=== PATIENT | female | born 1985 | race Caucasian/White ===

== ENCOUNTER 2025-01-11 20:45 | Emergency (ER) | payer OTHER, SELFPAY ==
--- NOTE | ~2025-01-11 | XR_ITS ---
CLINICAL HISTORY: proximal fibular tenderness 2 view left tibia-fibula Comparison: CR - XR ANKLE LT MIN 3V - 01/11/25 21:34 EDT Findings Redemonstrated distal fibular fracture with distal soft tissue edema. No proximal tibial/fibular fractures. No significant arthritic change. No radiopaque foreign body. IMPRESSION: No proximal tibial/fibular fractures. This document has been electronically signed by: Elian Preciado MD on 01/12/2025 01:41:25
--- NOTE | ~2025-01-11 | XR_ITS ---
CLINICAL HISTORY: s p fall - twisted ankle 3 view left ankle Comparison: None Findings: Comminuted distal fibular meta diaphyseal fracture with medial angulation butterfly fragments displaced laterally. Possible tiny additional displaced linear avulsion fractures inferior to the lateral malleolus. There is widening of the medial clear space concerning for underlying ligamentous injury. Diffuse soft tissue ankle edema, worse medially. No significant loss of joint space, osteophytes, or erosions. No radiopaque foreign body. IMPRESSION: Distal fibular fracture as described. This document has been electronically signed by: Elian Preciado MD on 01/11/2025 22:03:43
--- NOTE | ~2025-01-11 | XR_ITS ---
CLINICAL HISTORY: trauma 4 views sacrum and coccyx Comparison: None Findings No acute fractures. No significant degenerative change. No erosions. IMPRESSION: No acute findings This document has been electronically signed by: Elian Preciado MD on 01/12/2025 01:40:50
[2025-01-11 20:50] VITALS: BP 140/89; BP 160/100; PULSE 86; PULSE 99; RESP 16; TEMP 36.1; O2SAT 100; O2SAT 97; BMI 29.2
--- OUTSIDE RECORDS SUMMARY | 2025-01-11 21:11 | XMS_ITS | Clinical Summary ---
Author Organization [employer] Address [address] [place] [address] [address] [place] [address] Care Team Providers Care Master Baker Name Role Phone Unavailable Primary Care Provider Unavailabl e Social History Tobacco Use Types Packs/Day Years Used Date Smoking Tobacco: Never Assessed Comments Unknown Sex and Gender Information Value Date Recorded Sex Assigned at Female 08/05/2022 10:19 AM EDT Legal Sex Female 10:19 AM EDT Gender Identity Choose not to disclose 10:19 AM EDT Sexual Orientation Choose not to disclose 2021 10:19 AM EDT Plan of Treatment Health Maintenance Due Date Last Done Comments Depression Screening 1987 Alcohol/Substance Use Screening 1999 Tobacco Screening 1999 Family Planning (PISQ) 2002 DTaP/Tdap/Td Vaccines (1 - Tdap) 2006 Hepatitis B Vaccines (1 of 3 - 19+ 3-dose series) 2006 Pap Smear 2008 Cervical Cancer Screening 10/16/2021 HPV/Cotest 10/16/2021 10/16/2016 COVID-19 Vaccine (1 - 2023-2 5 season) 2024 Influenza Vaccine (#1) 2024 Zoster Vaccines (1 of 2) 2037 RSV Patients and Pa tients Aged 60 years or older (1 - 1-dose 75+ series) 2062 HIB Vaccines Aged Out No longer eligi ble based on patient's age to complete this topic HPV Vaccines Aged Out No longer eligi ble based on patient's age to complete this topic Hepatitis A Vaccines Aged Out No long er eligible based on patient's age to complete this topic IPV Vaccines Aged Out No longer eligi ble based on patient's age to complete this topic Meningococcal Vaccine Aged Out No angela cayetano eligible based on patient's age to complete this topic Pneumococcal Vaccine: Pediat rics (0 to 5 Years) and At-Risk Patients (6 to 49) Years) Aged Out No longer elig ible based on patient's age to complete this topic RSV under 20 months Aged Out No longe r eligible based on patient's age to complete this topic Rotavirus Vaccines Aged Out No longer eligible based on patient's age to complete this topic Procedures Procedure Name Priority Date/Time Associated Diagnosis Comments JdHILARIO HISTORICAL HPV MRNA E6/E7 Routine 10/16/2016 10:39 AM EST from Last 3 Months or Most Recently Relevant to Health Maintenance Results * HPV mRNA E6/E7 (10/16/2016 10:39 AM EST) HPV mRNA E6/E7 Not Detected NOT DETECTED [facility] Comment: This test was performed using the APTIMA(R) HPV Assay ([employer] This assay detects E6/E7 viral messenger RNA (mRNA) from 14 high-risk HPV types (16,18,31,33,35,39,45,51, 52,56,58,59,66,68). For additional information please refer to: http://education.Amp[employer] Mobile/faq/SUZ832r0 (This link is being provided for informational/ educational purposes only.) Test Performed by [facility], [address] [place] [id number] Levi Chairez M.D., Ph.D., Director of Laboratories , [facility] [id number] Please note: ??Effective 06/17/2016, HPV testing will be performed using [employer]'s APTIMA test which targets mRNA. Detecting mRNA instead of DNA, as in older methods, offers significant improvements in specificity. 10/16/2016 10:3 9 AM EST us Historical Provider HISTORICAL/NON ORDERABLE LABS Final Result [facility] [place] [address], [place] from Last 3 Months or Most Recently Relevant to Health Maintenance
--- OUTSIDE RECORDS SUMMARY | 2025-01-11 21:11 | XMS_ITS | Clinical Summary ---
Author Organization [facility] [address] [facility] Address [address] [facility] [place] [address] Phone Care Team Providers Care Senior Lead Developer Name Role Phone Martha Vidal MD Primary Care Pr ovider Allergies No known active allergies Medications IBUPROFEN ORAL Take by mouth. Active pantoprazole (PROTONIX) 20 mg EC tablet Take 1 Tablet by mouth daily. 4 Active escitalopram (LEXAPRO) 10 mg tablet Take 1 tablet (10 mg total) by mouth 1 (one) time each day. 90 tablet 1 5 Active hydrOXYzine HCL (ATARAX) 25 mg tablet Take 1 tablet (25 mg total) by mouth at bedtime as needed for anxiety. for anxiety 90 tablet 1 5 Active cyclobenzaprine (FLEXERIL) 5 mg tablet Take 1 tablet (5 mg total) by mouth at bedtime. at bedtime. 90 tablet 5 Active hydrOXYzine HCL (ATARAX) 25 mg tablet Take 1 tablet (25 mg total) by mouth at bedtime as needed for anxiety. for anxiety 90 tablet 1 5 01/02/20 25 Discontinu ed(Reorder ) cyclobenzaprine (FLEXERIL) 5 mg tablet Take 1 tablet (5 mg total) by mouth at bedtime. at bedtime. 90 tablet 5 01/05/20 25 Discontinu ed(Reorder ) Hospital, Clinic, or Other Facility Administered Medication Ordered Dose Route Frequency Start Date End Date Status cyanocobalamin (VITAMIN B-12) injection 1,000 mcgIndications:Anemia due to vitamin B12 deficiency, unspecified B12 deficiency type 1000 mcg IM Every 30 days 08/27/2024 02/23/2025 Ac tive Active Problems Problem Noted Date Diagnosed Date B12 deficiency anemia 06/17/2024 Hyperlipidemia 06/17/2024 Vitamin B12 deficiency disease 06/17/2024 DJD (degenerative joint disease), thoracolumbar 06/16/2024 Lumbar pain 06/16/2024 Anxiety and depression 02/11/2023 Primary hypertension 02/11/2023 Dermatitis 11/13/2022 Gastroesophageal reflux disease without esophagi tis 11/13/2022 Insomnia 11/13/2022 Chronic bilateral thoracic back pain 09/03/2022 Overview (08/11/2024): Last Assessment & Plan: Referral to plastic surgery placed. Obesity (BMI 30.0-34.9) 07/07/2022 Encounters Date Type Department Care Team Description 11/24/2024 4:00 PM EST Clinical Support Adult Medicine [address] [phone] Vitamin B12 deficiency disease (Primary Dx) 11/10/2024 4:15 PM EST Clinical Support Adult Medicine [address] [address] Vitamin B12 deficiency disease (Primary Dx) from Last 3 Months Immunizations Name Administration Dates Next Due Influenza trivalent, 0.5mL, preservative free (Fluarix; FluLaval; Fluzone) ages 6mo and older (Afluria) 3 years and older 06/16/2024 Tdap Tetanus diptheria acell ular pertussis (Boostrix; Adacel) 7yo and older 11/13/2022,02/01/2009 Surgical History Surgery Date Site/Laterality Comments OTHER SURGICAL HISTORY PROCEDURE: DENIES PREVIOUS SURGERY Family History Medical History Relation Name Comments Pancreatic cancer Maternal Grandmother Diabetes Mother Breast cancer Other Mat gr granmother Other: skin cancer Uncle maternal Colon cancer Neg Hx Relation Name Status Comments Father unknown Maternal Grandmother Mother Other Mat gr granmother Uncle maternal Alive Social History Tobacco Use Types Packs/Day Years Used Date Smoking Tobacco: Never Smokeless Tobacco: Never Alcohol Use Standard Drinks/Week Comments Yes 0 (1 standard drink = 0.6 oz pur e alcohol) Comments Unknown Sex and Gender Information Value Date Recorded Sex Assigned at Not on file Legal Sex Female 11:56 PM EST Gender Identity Not on file Sexual Orientation Not on file Obstetrics History Last Filed Vital Signs Vital Sign Reading Time Taken Comments Blood Pressure 129/82 06/16/2024 2:25 PM EDT Pulse 79 06/16/2024 2:25 PM EDT Temperature - - Respiratory Rate - - Oxygen Saturation - - Inhaled Oxygen Concentration - - Weight 80.3 kg (177 lb) 06/16/2024 2:25 PM EDT Height 157.5 cm (5' 2 ) 06/16/2024 2:25 PM EDT Body Mass Index 32.37 06/16/2024 2:25 PM EDT Plan of Treatment Upcoming Encounters Date Type Department Care Team (Late st Contact Info) Description 02/10/2025 12:30 PM EDT Office Visit Adult Medicine [address] [phone] Melissa Bains PA [address] [place] [address] Health Maintenance Due Date Last Done Comments Hepatitis B Vaccines (1 of 3 - 19+ 3-dose series) 2006 Depression Screening 09/15/2022 Hepatitis C Screening 09/15/2022 Social Influencers of Health Screening 09/15/2022 COVID-19 Vaccine ( - 2023-2 5 season) 2024 01/29/2021, 12/31/2020 Hypertension/CHF/CAD Annual BMP Blood Test 06/16/2025 06/16/2024, 06/16/2024 Cervical Cancer Screening: HPV 09/02/2027 09/02/2022 Cholesterol Screening (Lipid Panel) 06/16/2029 06/16/2024, 06/16/2024 DTaP,Tdap,and Td Vaccines (3 - Td or Tdap) 11/13/2032 11/13/2022, 02/01/2009 HIV Screening Completed 08/23/2004 Influenza Vaccine Completed 06/16/2024 HIB Vaccines Aged Out No longer eligi [...] on patient's age to complete this topic MMR Vaccines Aged Out No longer eligi ble based on patient's age to complete this topic Meningococcal ACWY Vaccine Aged Out N o longer eligible based on patient's age to complete this topic Meningococcal B Vaccine Aged Out No l onger eligible based on patient's age to complete this topic Pneumococcal Vaccine: Pediatrics (0 to 5 Years) and At-Risk Patients (6 to 64 Years) Aged Out No longer eligible b ased on patient's age to complete this topic RSV Immunization Patients Under 20 months Aged Out No longer eligible b ased on patient's age to complete this topic Varicella Vaccines Aged Out No longer eligible based on patient's age to complete this topic Procedures Procedure Name Priority Date/Time Associated Diagnosis Comments ANNUAL BMP BLOOD TEST Routine 06/16/2024 LIPID PANEL Routine 06/16/2024 HPV Routine 09/02/2022 HIV SCREENING Routine 08/23/2004 from Last 3 Months or Most Recently Relevant to Health Maintenance Results * Annual BMP Blood Test (06/16/2024) Pathologist [facility] Annual BMP Blood Test Abstracted us Historical Provider MD HEALTH MAINTENANCE Final Result * (ABNORMAL) Lipid panel (06/16/2024) Pathologist [facility] LDL/HDL Ratio 5(A) 0 - 4 Triglycerides 312(A) 0 - 150 mg/dL Cholesterol 206(A) 0 - 200 mg/dL HDL 45 >=40 mg/dL LDL Cholesterol 99 0 - 100 mg/dL Blood Venous blood specimen / Unknown Historical Provider LAB BLOOD ORDERABLES Mandie l Result * Cervical Cancer Screening: HPV (09/02/2022) Pathologist [facility] Cervical Cancer Screening: HPV Negative, Abstracted Historical Provider HEALTH MAINTENANCE Final Result * HIV Screening (08/23/2004) [facility] HIV Screening Abstracted [facility] Provider HEALTH MAINTENANCE Final Result from Last 3 Months or Most Recently Relevant to Health Maintenance Care Teams Senior Lead Developer Relationship Specialty Start Date End Date Martha Vidal MD [address] [place], [place] PCP - General Internal Medicine 05/02/22
--- OUTSIDE RECORDS SUMMARY | 2025-01-11 21:11 | XMS_ITS | Encounter Summary ---
Author Organization [employer] [facility] Address [address] [place] [address] [address] [place] [address] Care Team Providers Care Coat Presser Name Role Phone Unavailable Primary Care Provider Unavailabl e Encounter Details Date Type Department Care Team (Latest Contact Info) Description 02/05/2022 Abstract [facility] CONVERSIONS Dental, Provider, DDS Social History Tobacco Use Types Packs/Day Years Used Date Smoking Tobacco: Never Assessed Comments Unknown Sex and Gender Information Value Date Recorded Sex Assigned at Female 08/05/2022 10:19 AM EDT Legal Sex Female 10:19 AM EDT Gender Identity Choose not to disclose 10:19 AM EDT Sexual Orientation Choose not to disclose 2021 10:19 AM EDT documented as of this encounter Plan of Treatment Not on file documented as of this encounter Visit Diagnoses Not on filedocumented in this encounter
--- OUTSIDE RECORDS SUMMARY | 2025-01-11 21:11 | XMS_ITS | Encounter Summary ---
Author Organization [facility] Address [address] [place] [address] Care Team Providers Care Supervisor Nurse Name Role Phone Martha Vidal MD Primary Care Pr ovider Encounter Details Date Type Department Care Team (Late st Contact Info) Description 07/08/2024 4:30 PM EDT Hospital Encounter TH HISTORIC ENCOUNTERS [facility] CONVERSION ONLY Martha Vidal MD [address] [place] [id number] Social History Tobacco Use Types Packs/Day Years Used Date Smoking Tobacco: Never Smokeless Tobacco: Never Alcohol Use Standard Drinks/Week Comments Yes 0 (1 standard drink = 0.6 oz pur e alcohol) Comments Unknown Sex and Gender Information Value Date Recorded Sex Assigned at Not on file Legal Sex Female 11:56 PM EST Gender Identity Not on file Sexual Orientation Not on file documented as of this encounter Plan of Treatment Upcoming Encounters Date Type Department Care Team (Late st Contact Info) Description 02/10/2025 12:30 PM EDT Office Visit Adult Medicine [address] [phone] Melissa Bains PA [address] [place] [address] documented as of this encounter Visit Diagnoses Not on filedocumented in this encounter Care Teams Supervisor Nurse Relationship Specialty Start Date End Date Martha Vidal MD [address] [place] [address] [place], [place] PCP - General Internal Medicine 05/02/22 documented as of this encounter
--- NOTE | 2025-01-11 21:35 | PC.NURSE ---
portable left ankle performed
--- NOTE | 2025-01-11 23:13 | ED.GENADULT ---
HPI - General Adult General Chief complaint: Extremity Injury, Lower Stated complaint: Ankle injury, ?dislocation Time Seen by Provider: 01/11/25 23:13 History of Present Illness ED Provider: Vilma GONSALES narrative: The patient is a 39-year-old woman who comes to the emergency room by ambulance after slipping and falling on the stairs in her apartment building. She says that she slipped and fell and twisted her left ankle. She also landed on her buttocks and has pain in the region of her tailbone she says. She did not hit her head or sustain any other injuries. Related Data Previous Rx's ?Medication ?Instructions ?Recorded oxycodone 5 mg tablet 5 mg PO Q6H PRN pain #16 tabs 01/12/25 Allergies Allergy/AdvReac Type Severity Reaction Status Date / Time No Known Allergies Allergy Verified 01/11/25 20:54 Review of Systems Review of Systems: Yes all other systems are reviewed and are negative PMFSH Social History Social History Advance Directives: No Advance Directives Information Provided: No Physical Exam ED Vital Signs: Vital Signs - 24 hr 01/11/25 20:50 01/12/25 00:35 Temperature 97.0 F 98.2 F Pulse Rate 99 80 Respiratory Rate 16 18 Blood Pressure 140/89 H 137/90 H Pulse Oximetry 97 95 Oxygen Delivery Method Room Air Room Air BMI result Body Mass Index 29.2 Const Other: The patient is awake and alert. She looks uncomfortable. She has an obviously swollen left ankle. HENMT Other: No signs of trauma to the head or the face. Eyes Other: Pupils are round equal, conjunctivae are clear, extraocular movements intact. Neck Other: No C-spine tenderness. Moving her neck easily without pain. C-spine is clinically clear. Resp Effort & Inspection: normal respiratory effort Auscultation: clear to auscultation bilaterally Cardio Rate: regular rate Rhythm: regular rhythm Heart sounds: S1 normal heart sound present and S2 normal heart sound present Back/Spine/Pelvis Other: The patient has left-sided sacral tenderness Skin Other: There is swelling to the skin of the left ankle both of the lateral and medial malleoli. The skin is intact. Neuro Other: The patient is awake and alert. She is quite upset. Cranial nerves seem grossly intact. She is able to wiggle the toes of the left foot and she reports that she can feel me touching her left foot and toes. Extrem Other: The patient has significant swelling of both left malleoli. She is tender. There is significant swelling but no other gross deformity. She is also tender at the left proximal fibula. The knee is not swollen. Medications Administered Discontinued Medications Generic Name Dose Route Start Last Admin Trade Name Jessica PRN Reason Stop Dose Admin Oxycodone HCl 5 mg 01/11/25 23:22 01/11/25 23:56 Oxycodone Hcl Immed Release 5 Mg Tablet PO 01/11/25 23:23 5 mg ONCE ONE Administration Procedures Orthopedic Splinting/Casting Injury #1: Side: left Lower Extremity Injury Location: ankle Lower Extremity Immobilizer: posterior splint, stirrup splint and Deny wrap Other Orthopedic Equipment: crutches Additional Comments: A splint was applied with generous cast padding applied 1st and then a posterior slab of Orthoglass and a stirrup slab of Orthoglass applied with the an Deny bandage. Patient tolerated application of the splint well. She remained neurovascularly intact after after application of the splint. Medical Decision Making Medical Decision Making MDM Narrative: The patient's presents after falling on stairs in her apartment building. She injured her left ankle and also her sacral area. She did not hit her head. An x-ray of the left ankle showed a left distal fibular fracture. There is some slight widening of the joint space. The patient seemed to have some tenderness in the region of the proximal fibula and I was concerned about the possibility of a Maisonneuve fracture. Therefore an x-ray of the hold tibia and fibula was obtained but there were no additional fractures. The patient had some sacral tenderness. No fracture seen on a sacral/coccyx fracture. I explained to the patient that she has a left distal fibular fracture that will probably need surgical repair. She was placed in a splint with a short-leg posterior slab and a stirrup slab. The splint was made using perfectly cast padding, Orthoglass, and Deny bandages. The patient tolerated application of the splint well and remained neurovascularly intact. The patient was advised that she will be nonweightbearing until otherwise advised by Orthopedics. She was given crutches. Her boyfriend will be taking her home. A prescription for oxycodone was sent to the pharmacy. She will contact the orthopedic office in the morning. Discharge Plan Discharge Clinical Impression: Closed fracture of left distal fibula Patient Disposition: Home, Self-Care Instructions: Leg Fracture (ED) Additional Instructions: You have a fracture of the left side of your ankle that will probably need surgery. You has been placed in a splint to immobilize the fracture until you follow up with the orthopedic office. You should be ?nonweightbearing? on your left foot. This means you should not put your foot on the ground with any weight. Use the crutches provided to keep weight off your left foot. As much as you are able to please keep the left foot elevated to reduce swelling. Reducing swelling will reduce pain. You may use [id number] acetaminophen, 2 extra-strength acetaminophen per dose up to 3 times per day. Additionally I have sent a prescription for oxycodone tablets to the [facility] on [employer] in [place]. You may use this medication on an as-needed basis for pain. Please call the orthopedic office in the morning for a prompt follow up appointment to discuss this fracture further and possibly arrange surgery. Return to the emergency room if significantly worse. Prescriptions: New oxycodone 5 mg tablet 5 mg PO Q6H PRN (Reason: pain) Qty: 16 0RF Rx Instructions: Partial Fill upon patient request. Referrals: [facility] Orthopedic Surgeons [Provider Group] (left distal fibula fracture) Stand Alone Forms: Work/School Release Print Language: Telugu
[2025-01-11] MEDS: oxyCODONE HCl Immed Release 5 MG TABLET PO (23:56)
[2025-01-12 00:35] VITALS: BP 137/90; PULSE 80; RESP 18; TEMP 36.8; O2SAT 95
[2025-01-12 02:40] VITALS: BP 137/90; PULSE 80; RESP 18; TEMP 36.8; O2SAT 95
== END 2025-01-12 02:40 | disposition home or self-care (01) ==
PROVIDERS: Emergency Provider Emergency Medicine; PCP Student in an Organized Health Care Education/Training Program
DX: S82.832A Other fracture of upper and lower end of left fibula, initial encounter for closed fracture (principal); W10.8XXA Fall (on) (from) other stairs and steps, initial encounter; Y93.89 Activity, other specified; Y92.038 Other place in apartment as the place of occurrence of the external cause; Y99.9 Unspecified external cause status
CPT/HCPCS: 29515; 72220; 73590; 73610; 99283; 99284

== ENCOUNTER → 2025-01-11 21:38 | Outpatient (BNV) | payer SELFPAY | PROVIDERS: PCP Student in an Organized Health Care Education/Training Program; Visit Provider Radiology Diagnostic Radiology | DX: S82.892A Other fracture of left lower leg, initial encounter for closed fracture (principal) | CPT/HCPCS: 73610 ==

== ENCOUNTER → 2025-01-12 00:02 | Outpatient (BNV) | payer SELFPAY | PROVIDERS: Emergency Provider Emergency Medicine; PCP Student in an Organized Health Care Education/Training Program; Visit Provider Radiology Diagnostic Radiology | DX: M53.3 Sacrococcygeal disorders, not elsewhere classified (principal); M25.572 Pain in left ankle and joints of left foot | CPT/HCPCS: 72220; 73590 ==

== ENCOUNTER 2025-01-17 09:30 | Outpatient (AMB) | payer OTHER, SELFPAY ==
--- NOTE | 2025-01-17 09:36 | A.OFFVIS_ITS ---
Vital Signs 01/17/25 09:46 Height 5 ft 4 in Weight 170 lb BMI 29.2 Intake Visit Reasons: FC-LT ankle closed fracture of distal fibula Intake Note: Nathalie is a 39 year old female who presents today for an ER follow up of left ankle fracture, DOI 01/11/25. Patient had a fall down the stairs at home, she presented to [facility] ER that same day where x-rays were taken and placed in a splint. Patient reports her current pain level is a 9-10 out of 10. She feels pressure in her ankle and swelling in her toes. Patient mentions soreness in her coccyx area. feels swelling in her toes. Allergies No Known Allergies Allergy (Verified 01/17/25 09:49) Medication List - Last Reconciled 01/17/25 by Bhavik Castano PA-C escitalopram oxalate 10 mg PO DAILY hydroxyzine HCl 25 mg PO DAILY PNV cmb#95-ferrous fumarate-FA 28 mg iron- 800 mcg () 1 tab PO DAILY HPI HPI FC-LT ankle closed fracture of distal fibula: Details: 39-year-old female presents to the office today for an injury she sustained to her left ankle on 01/11/2025. She states she was going down the stairs when she slipped and fell. She immediately noticed pain and inability to weightbear therefore she was seen in the emergency department where x-rays were obtained. She was found to have a distal fibular fracture with widening of the mortise. She was placed in a splint nonweightbearing and referred to our office for ortho eval. 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 Review of Systems Const All systems reviewed & are unremarkable except as noted in HPI and below Physical Exam Vital Signs: BMI result Body Mass Index 29.2 Const General: cooperative, healthy appearing, comfortable, no acute distress, well developed and alert Orientation/consciousness: patient oriented x3 HEENT Head: Yes normal to inspection, Yes normocephalic and Yes atraumatic Eyes General: appearance normal, both eyes and all related structures Neck Neck: Yes normal visual inspection and Yes no lymphadenopathy Resp Effort & Inspection: normal respiratory effort and able to speak in complete sentences Cardio Rate: regular rate Peripheral pulses: Peripheral pulses 2+ throughout GI Inspection: Yes normal to inspection Palpation (GI): Soft to palpation Skin General skin exam: no rashes or lesions noted Neuro General: patient oriented x3 Extrem Other: Left ankle is normal to inspection. She has diffuse swelling throughout the foot and ankle with a fracture blister along the medial aspect of the ankle. Sensation intact. Psych Appearance: grossly normal Mental Status: mental status grossly normal Office Procedures Casting/Splints 25293-Gzgqg Leg splint application Procedure code (CPT) selection complete Assessment & Plan Assessment & Plan (1) Closed fracture of left distal fibula: Code(s): S82.832A - Other fracture of upper and lower end of left fibula, initial encounter for closed fracture Category: Medical Plan: I discussed the case with Dr Carmona and explained the extent of the injury to the patient and options available which include surgical intervention. I explained the procedure in detail along with the length of recovery and rehab course. I explained the risk, benefits and alternatives. Risk including, but not limited to infection, blood clots, bleeding, non union or malunion and nerve/tissue damage to surrounding areas. I answered all their questions and with their understanding they have consented to move forward with Operative Fixa tion of the left ankle . She will eb booked accordingly. Medications: Discontinued oxycodone Partial Fill upon patient request. Discontinued Reason: Patient Completed Course 5 mg PO Q6H PRN 16 tabs 0RF pain Coding Level of Care Code New Pt Level 4 (07772) Complex EM visit Add On G2211 Diagnoses Closed fracture of left distal fibula S82.832A CPT Codes Splint - CPT: 74079-Xmkrv Leg splint application ([id number])
[2025-01-17 09:46] VITALS: BMI 29.2
--- OUTSIDE RECORDS SUMMARY | 2025-01-17 10:34 | XMS_ITS | Clinical Summary ---
Author Organization [employer] Address [address] [place] [address] 7[address] [place] [address] Care Team Providers Care Drum Stenciler Name Role Phone Unavailable Primary Care Provider Unavailabl e Encounters Date Type Department Care Team Description 01/11/2025 Orders Only [facility] External Provider, [facility] from Last 3 Months Social History Tobacco Use Types Packs/Day Years [...] Procedure Name Priority Date/Time Associated Diagnosis Comments XR TIBIA FIBULA 2 VIEWS LEFT Routine 01/12/2025 1:41 AM EDT XR SACRUM COCCYX 2+ VIEWS Routine 01/12/2025 1:40 AM EDT XR ANKLE 3+ VIEWS LEFT Routine 01/11/2025 10:03 PM EDT [facility] HISTORICAL HPV MRNA E6/E7 Routine 10/16/2016 10:39 AM EST from Last 3 Months or Most Recently Relevant to Health Maintenance Results * XR Tibia Fibula 2 Views Left (01/12/2025 1:41 AM EDT) Anatomical Region Laterality Modality Lower Extremities, Lower Leg Left Rad iographic Imaging 01/12/2025 1:41 AM EDT Narrative 01/12/2025 1:43 AM EDT ? [facility] ?[address] ?[place] [address] ?XRay Report ? Signed ? Patient: Nathalie Correia ?MR#: M ?? [id number] ? : 1985 ?Acct:[id number] ? Age/Sex: 39 / F ?ADM Date: 04/08/25 ? Loc: HO.ED ? Attending Dr: ? Ordering Physician: Augusto Esparza MD ?? Date of Service: 01/12/25 ?? Procedure(s): XR tibia fibula LT 2V ?? Accession Number(s): [id number] ? cc: Augusto Esparza MD; Leandra Carbajal MD ? CLINICAL HISTORY: proximal fibular tenderness ? 2 view left tibia-fibula ? Comparison: CR - XR ANKLE LT MIN 3V - 01/11/25 21:34 EDT ? Findings ?? Redemonstrated distal fibular fracture with distal soft tissue edema. ?? No proximal tibial/fibular fractures. ?? No significant arthritic change. No radiopaque foreign body. ? IMPRESSION: ?? No proximal tibial/fibular fractures. ? This document has been electronically signed by: Elian Preciado MD on ?? 01/12/2025 01:41:25 ? Dictated By: ?Elian Preciado MD ? Signed By: ?<Electronically signed by Elian Preciado MD in OV> ?01/12/25 0142 ? DD/ 0141 ? TD/TT: 01/12/25 0141 ? Client Service Administrator: ? Procedure Note Donmanuel, Image - 01/13/[address] [address] XRay Report Signed Patient: Nathalie CorreianMR#: M [id number] : 1985Acct:[id number] Age/Sex: 39 / FADM Date: 01/11/25 Loc: HO.ED Attending Dr: Ordering Physician: Augusto Esparza MD Date of Service: 01/12/25 Procedure(s): XR tibia fibula LT 2V Accession Number(s): [id number] cc: Augusto Esparza MD; Leandra Carbajal MD CLINICAL HISTORY: proximal fibular tenderness 2 view left tibia-fibula Comparison: CR - XR ANKLE LT MIN 3V - 01/11/25 21:34 EDT Findings Redemonstrated distal fibular fracture with distal soft tissue edema. No proximal tibial/fibular fractures. No significant arthritic change. No radiopaque foreign body. IMPRESSION: No proximal tibial/fibular fractures. This document has been electronically signed by: Elian Preciado MD on 01/12/2025 01:41:25 Dictated By: Elian Preciado MD Signed By: <Electronically signed by Elian Preciado MD in OV> 01/12/25141 DD/ 0141 TD/TT: 01/12/25140 Client Service Administrator: [facility] External Provider IMG XR PROCEDURES Edited Result - Final * XR Sacrum Coccyx 2+ Views (01/12/2025 1:40 AM EDT) Anatomical Region Laterality Modality Sacrum, Coccyx Radiographic Stacey ging 01/12/2025 1:40 AM EDT Narrative 01/12/2025 1:42 AM EDT ? [facility] ?[address] ?[place], [place] [address] ?XRay Report ? Signed ? Patient: MasoodNathaliedania Machado ?MR#: M ?? [id number] ? : 1985 ?Acct:[id number] ? Age/Sex: 39 / F ?ADM Date: 01/11/25 ? Loc: HO.ED ? Attending Dr: ? Ordering Physician: Augusto Esparza MD ?? Date of Service: 01/12/25 ?? Procedure(s): XR sacrum coccyx min 2V ?? Accession Number(s): [id number] ? cc: Augusto Esparza MD; Leandra Carbajal MD ? CLINICAL HISTORY: trauma ? 4 views sacrum and coccyx ? Comparison: None ? Findings ?? No acute fractures. ?? No significant degenerative change. No erosions. ? IMPRESSION: ?? No acute findings ? This document has been electronically signed by: Elian Preciado MD on ?? 01/12/2025 01:40:50 ? Dictated By: ?Elian Preciado MD ? Signed By: ?<Electronically signed by Elian Preciado MD in OV> ?01/12/25 0141 ? DD/ 0140 ? TD/TT: 01/12/25 0140 ? Client Service Administrator: ? Procedure Note Mary Oliva - 01/13/[address] [address] XRay Report Signed Patient: Nathalie CorreiaAnna#: M [id number] : 1985Acct:[id number] Age/Sex: 39 / FADM Date: 01/11/25 Loc: HO.ED Attending Dr: Ordering Physician: Augusto Esparza MD Date of Service: 01/12/25 Procedure(s): XR sacrum coccyx min 2V Accession Number(s): [id number] cc: Augusto Esparza MD; Leandra Carbajal MD CLINICAL HISTORY: trauma 4 views sacrum and coccyx Comparison: None Findings No acute fractures. No significant degenerative change. No erosions. IMPRESSION: No acute findings This document has been electronically signed by: Elian Preciado MD on 01/12/2025 01:40:50 Dictated By: Elian Preciado MD Signed By: <Electronically signed by Elian Preciado MD in OV> 01/12/25140 DD/ 9 TD/TT: 01/12/25139 Client Service Administrator: [facility] External Provider IMG XR PROCEDURES Edited Result - Final * XR Ankle 3+ Views Left (01/11/2025 10:03 PM EDT) Anatomical Region Laterality Modality Lower Extremities, Ankle Left Radiogr aphic Imaging 01/11/2025 10:0 3 PM EDT Narrative 01/11/2025 10:05 PM EDT ? [facility] ?[address] ?[place] [address] ?XRay Report ? Signed ? Patient: Nathalie Correia ?MR#: M ?? [id number] ? : 1985 ?Acct:[id number] ? Age/Sex: 39 / F ?ADM Date: 01/11/25 ? Loc: HO.ED ? Attending Dr: ? Ordering Physician: Generic ED Physician ?? Date of Service: 01/11/25 ?? Procedure(s): XR ankle LT min 3V ?? Accession Number(s): [id number] ? cc: Generic ED Physician; Leandra Carbajal MD ? CLINICAL HISTORY: s p fall - twisted ankle ? 3 view left ankle ? Comparison: None ? Findings: ?? Comminuted distal fibular meta diaphyseal fracture with medial angulation ?? butterfly fragments displaced laterally. Possible tiny additional ?? displaced linear avulsion fractures inferior to the lateral malleolus. ?? There is widening of the medial clear space concerning for underlying ?? ligamentous injury. Diffuse soft tissue ankle edema, worse medially. ?? No significant loss of joint space, osteophytes, or erosions. ?? No radiopaque foreign body. ? IMPRESSION: ?? Distal fibular fracture as described. ? This document has been electronically signed by: Elian Preciado MD on ?? 01/11/2025 22:03:43 ? Dictated By: ?Elian Preciado MD ? Signed By: ?<Electronically signed by Elian Preciado MD in OV> ?01/11/252203 ? DD/ 02 ? TD/TT: 01/11/252202 ? Client Service Administrator: ? Procedure Note Donmargarethter, Image - 01/13/2025 [place] [address] XRay Report Signed Patient: Nathalie CorreiaCTR#: M [id number] : 1985Acct:[id number] Age/Sex: 39 / FADM Date: 01/11/25 Loc: HO.ED Attending Dr: Ordering Physician: Generic ED Physician Date of Service: 01/11/25 Procedure(s): XR ankle LT min 3V Accession Number(s): [id number] cc: Generic ED Physician; Leandra Carbajal MD CLINICAL HISTORY: s p fall - twisted ankle 3 view left ankle Comparison: None Findings: Comminuted distal fibular meta diaphyseal fracture with medial angulation butterfly fragments displaced laterally. Possible tiny additional displaced linear avulsion fractures inferior to the lateral malleolus. There is widening of the medial clear space concerning for underlying ligamentous injury. Diffuse soft tissue ankle edema, worse medially. No significant loss of joint space, osteophytes, or erosions. No radiopaque foreign body. IMPRESSION: Distal fibular fracture as described. This document has been electronically signed by: Elian Preciado MD on 01/11/2025 22:03:43 Dictated By: Elian Preciado MD Signed By: <Electronically signed by Elian Preciado MD in OV> 01/11/252203 DD/ 02 TD/TT: 01/11/252202 Client Service Administrator: [facility] External Provider IMG XR PROCEDURES Edited Result - Final * HPV mRNA E6/E7 (10/16/2016 10:39 AM EST) HPV mRNA E6/E7 Not Detected NOT DETECTED [facility] Comment: This test was performed using the APTIMA(R) HPV Assay ([employer] This assay detects E6/E7 viral messenger RNA (mRNA) from 14 high-risk HPV types (16,18,31,33,35,39,45,51, 52,56,58,59,66,68). For additional information please refer to: http://education.Ensogo/faq/FDY215y5 (This link is being provided for informational/ educational purposes only.) Test Performed by [employer], [employer] [facility], [address] [place] [address] Levi Chairez M.D., Ph.D., Director of Laboratories , [facility] [id number] Please note: ??Effective 06/17/2016, HPV testing will be performed using [employer]'s APTIMA test which targets mRNA. Detecting mRNA instead of DNA, as in older methods, offers significant improvements in specificity. 10/16/2016 10:3 9 AM EST us Historical Provider HISTORICAL/NON ORDERABLE LABS Final Result [facility] [address] from Last 3 Months or Most Recently Relevant to Health Maintenance
--- OUTSIDE RECORDS SUMMARY | 2025-01-17 10:34 | XMS_ITS | Encounter Summary ---
Author Organization [employer] Address [address] [place] [address] 7 [place] [address] Care Team Providers Care Contact Lens Flashing Puncher Name Role Phone Unavailable Primary Care Provider Unavailabl e Encounter Details Date Type Department Care Team (Late st Contact Info) Description 01/11/2025 Orders Only [facility] External Provider, [facility] Social History Tobacco Use Types Packs/Day Years [...] on file documented as of this encounter Procedures Procedure Name Priority Date/Time Associated Diagnosis Comments XR TIBIA FIBULA 2 VIEWS LEFT Routine 01/12/2025 1:41 AM EDT XR SACRUM COCCYX 2+ VIEWS Routine 01/12/2025 1:40 AM EDT XR ANKLE 3+ VIEWS LEFT Routine 01/11/2025 10:03 PM EDT documented in this encounter Results * XR Tibia Fibula 2 Views Left (01/12/2025 1:41 AM EDT) Anatomical Region Laterality Modality Lower Extremities, Lower Leg Left Rad iographic Imaging 01/12/2025 1:41 AM EDT Narrative 01/12/2025 1:43 AM EDT ? [facility] [facility] ?[address] ?[place] [address] ?XRay Report ? Signed ? Patient: Masood,Nathalie Machado ?MR#: M ?? [id number] ? : 1985 ?Acct:[id number] ? Age/Sex: 39 / F ?ADM Date: 01/11/25 ? Loc: HO.ED ? Attending Dr: ? Ordering Physician: Augusto Esparza MD ?? Date of Service: 01/12/25 ?? Procedure(s): XR tibia fibula LT 2V ?? Accession Number(s): [id number] ? cc: Augusto Esparza MD; Leandra Carbajal [...] DD/ 0141 ? TD/TT: 01/12/25 0141 ? Chainer: ? Procedure Note Pj, Image - 01/13/[address] [address] XRay Report Signed Patient: Nathalie CorreiaMDR#: M [id number] : 1985Acct:[id number] Age/Sex: 39 / FADM Date: 01/11/25 Loc: HO.ED Attending Dr: Ordering Physician: Augusto Esparza MD Date of Service: 01/12/25 Procedure(s): XR tibia fibula LT 2V Accession Number(s): [id number] cc: Augusto Esparza MD; Leandra Carbajal MD CLINICAL HISTORY: proximal fibular tenderness 2 view left tibia-fibula Comparison: CR - XR ANKLE LT MIN 3V - 4/8/25 21:34 EDT Findings Redemonstrated distal fibular fracture with distal soft tissue edema. No proximal tibial/fibular fractures. No significant arthritic change. No radiopaque foreign body. IMPRESSION: No proximal tibial/fibular fractures. This document has been electronically signed by: Elian Preciado MD on 01/12/2025 01:41:25 Dictated By: Elian Preciado MD Signed By: <Electronically signed by Elian Preciado MD in OV> 01/12/25141 DD/ 0 TD/TT: 01/12/25140 Chainer: [facility] External Provider IMG XR PROCEDURES Edited Result - Final * XR Sacrum Coccyx 2+ Views (01/12/2025 1:40 AM EDT) Anatomical Region Laterality Modality Sacrum, Coccyx Radiographic Stacey ging 01/12/2025 1:40 AM EDT Narrative 01/12/2025 1:42 AM EDT ? [facility] ?[address] ?[place] [address] ?XRay Report ? Signed ? Patient: Nathalie Correia ?MR#: M ?? [id number] ? : 1985 ?Acct:[id number] ? Age/Sex: 39 / F ?ADM Date: 01/11/25 ? Loc: HO.ED ? Attending Dr: ? Ordering Physician: Augusto Esparza MD ?? Date of Service: 01/12/25 ?? Procedure(s): XR sacrum coccyx min 2V ?? Accession Number(s): [id number] ? cc: Augusto Esparza MD; Leandra Carbajal [...] by Elian Preciado MD in OV> ?01/12/25 014 ? DD/ 0140 ? TD/TT: 01/12/25 0140 ? Chainer: ? Procedure Note Mary Oliva - 01/13/[address] [address] XRay Report Signed Patient: Nathalie CorreianMR#: M [id number] : 1985Acct:[id number] Age/Sex: 39 / FADM Date: 01/11/25 Loc: HO.ED Attending Dr: Ordering Physician: Augusto Esparza MD Date of Service: 01/12/25 Procedure(s): XR sacrum coccyx min 2V Accession Number(s): [id number] cc: Augusto Esparza MD; Leandra Carbajal MD [...] in OV> 01/12/25140 DD/ 9 TD/TT: 01/12/25139 [place]: [facility] External Provider IMG XR PROCEDURES Edited Result - Final * XR Ankle 3+ Views Left (01/11/2025 10:03 PM EDT) Anatomical Region Laterality Modality Lower Extremities, Ankle Left Radiogr aphic Imaging 01/11/2025 10:0 3 PM EDT Narrative 01/11/2025 10:05 PM EDT ? [facility] ?[address] ?[place] [address] ?XRay Report ? Signed ? Patient: Correia,Nathalie Machado ?MR#: M ?? [id number] ? : 1985 ?Acct:[id number] ? Age/Sex: 39 / F ?ADM Date: 01/11/ ? Loc: HO.ED ? Attending Dr: ? Ordering Physician: Generic ED Physician ?? Date of Service: 01/11/25 ?? Procedure(s): XR ankle LT min 3V ?? Accession Number(s): [id number] ? cc: Generic ED Physician; Leandra Carbajal [...] signed by Elian Preciado MD in OV> ?01/11/254 ? DD/ 02 ? TD/TT: 01/11/252202 ? Chainer: ? Procedure Note Mary Oliva - 01/13/2025 [place] [address] XRay Report Signed Patient: Nathalie CorreiaMDR#: M [id number] : 1985Acct:[id number] Age/Sex: 39 / FADM Date: 01/11/25 Loc: HO.ED Attending Dr: Ordering Physician: Generic ED Physician Date of Service: 01/11/25 Procedure(s): XR ankle LT min 3V Accession Number(s): [id number] cc: Generic ED Physician; Leandra Carbajal MD [...] in OV> 01/11/252203 DD/ 02 TD/TT: 01/11/252202 [facility]: [facility] External Provider IMG XR PROCEDURES Edited Result - Final documented in this encounter Visit Diagnoses Not on filedocumented in this encounter
--- OUTSIDE RECORDS SUMMARY | 2025-01-17 10:34 | XMS_ITS | Encounter Summary ---
Author Organization [facility] Address [address] [place] [address] Care Team Providers Care Research Instrumentation Technician Name Role Phone Martha Vidal MD Primary Care Pr ovider Encounter Details Date Type Department Care Team (Late st Contact Info) Description 07/08/2024 4:30 PM EDT Hospital Encounter TH HISTORIC ENCOUNTERS EASTERN CONVERSION ONLY Martha Vidal MD [address] [place] [phone] Social History Tobacco Use Types Packs/Day Years [...] 12:30 PM EDT Office Visit Adult Medicine [address] [phone] Melissa Bains PA [address] [place] [address] documented as of this encounter Visit Diagnoses Not on filedocumented in this encounter Care Teams Research Instrumentation Technician Relationship Specialty Start Date End Date Martha Vidal MD [address] [place], [place] PCP - General Internal Medicine 05/02/22 documented as of this encounter
--- OUTSIDE RECORDS SUMMARY | 2025-01-17 10:34 | XMS_ITS | Encounter Summary ---
Author Organization [employer] [facility] Address [address] [place] [address] 7 [place] [address] Care Team Providers Care Health Commissioner Name Role Phone Unavailable Primary Care Provider Unavailabl e Encounter Details Date Type Department Care Team (Latest Contact Info) Description 02/05/2022 Abstract [facility] CONVERSIONS Dental, Provider, DDS Social History Tobacco [...]
--- OUTSIDE RECORDS SUMMARY | 2025-01-17 10:34 | XMS_ITS | Clinical Summary ---
Author Organization [facility] [address] [facility] Address [address] [facility] [place] [address] Phone Care Team Providers Care Skylights Assembler Name Role Phone Martha Vidal MD Primary [...] PM EST Clinical Support Adult Medicine [address] [phone] Vitamin B12 deficiency disease (Primary Dx) 11/10/2024 4:15 PM EST Clinical Support Adult Medicine [address] [address] Vitamin B12 deficiency disease (Primary Dx) from [...] 12:30 PM EDT Office Visit Adult Medicine [address] [phone] Melissa Bains PA [address] [place] [address] Health Maintenance Due Date Last Done Comments [...] * Annual BMP Blood Test (06/16/2024) Pathologist [facility] Annual BMP Blood Test Abstracted us Historical Provider MD HEALTH MAINTENANCE Final Result * (ABNORMAL) Lipid panel (06/16/2024) Pathologist [facility] LDL/HDL Ratio 5(A) 0 - 4 Triglycerides 312(A) 0 - 150 mg/dL Cholesterol 206(A) 0 - 200 mg/dL HDL 45 >=40 mg/dL LDL Cholesterol 99 0 - 100 mg/dL Blood Venous blood specimen / Unknown Historical Provider LAB BLOOD ORDERABLES Mandie l Result * Cervical Cancer Screening: HPV (09/02/2022) Pathologist [facility] Cervical Cancer Screening: HPV Negative, Abstracted Historical Provider HEALTH MAINTENANCE Final Result * HIV Screening (08/23/2004) [facility] HIV Screening Abstracted [facility] Provider HEALTH MAINTENANCE Final Result from Last 3 Months or Most Recently Relevant to Health Maintenance Care Teams Skylights Assembler Relationship Specialty Start Date End Date Martha Vidal MD [address] [place], [place] PCP - General Internal Medicine 05/02/22
== END 2025-01-17 10:54 | disposition home or self-care (01) ==
LOC: HO.HOS 09:30
PROVIDERS: PCP Student in an Organized Health Care Education/Training Program; Visit Provider Physician Assistant
DX: S82.832A Other fracture of upper and lower end of left fibula, initial encounter for closed fracture (principal); W10.8XXA Fall (on) (from) other stairs and steps, initial encounter
CPT/HCPCS: 29515; 99204

== ENCOUNTER → 2025-01-17 09:30 | Outpatient (BNVA) | payer OTHER, SELFPAY | PROVIDERS: PCP Student in an Organized Health Care Education/Training Program; Visit Provider Physician Assistant | DX: Z01.818 Encounter for other preprocedural examination (principal); S82.832A Other fracture of upper and lower end of left fibula, initial encounter for closed fracture | CPT/HCPCS: 29515 ==

== ENCOUNTER 2025-01-18 10:00 | Day surgery (SDC) | payer OTHER, SELFPAY ==
--- OUTSIDE RECORDS SUMMARY | 2025-01-17 11:47 | XMS_ITS | Encounter Summary ---
Author Organization [facility] Address [address] [place] [address] Care Team Providers Care Emergency Management Director Name Role Phone Martha Vidal MD Primary Care Pr ovider Encounter Details Date Type Department Care Team (Late st Contact Info) Description 07/08/2024 4:30 PM EDT Hospital Encounter TH HISTORIC ENCOUNTERS EASTERN CONVERSION ONLY Martha Vidal MD [address] [place] [phone] Social History Tobacco Use Types Packs/Day Years [...] 12:30 PM EDT Office Visit Adult Medicine [address] [phone] Melissa Bains PA [address] [place] [address] documented as of this encounter Visit Diagnoses Not on filedocumented in this encounter Care Teams Emergency Management Director Relationship Specialty Start Date End Date Martha Vidal MD [address] [place], [place] PCP - General Internal Medicine 05/02/22 documented as of this encounter
--- OUTSIDE RECORDS SUMMARY | 2025-01-17 11:47 | XMS_ITS | Encounter Summary ---
Author Organization [employer] [facility] Address [address] [place] [address] 7 [place] [address] Care Team Providers Care Supervisor Counseling And Guidance Name Role Phone Unavailable Primary Care Provider Unavailabl e Encounter Details Date Type Department Care Team (Latest Contact Info) Description 02/05/2022 Abstract [facility] CONVERSIONS Dental, Provider, DDS Social History Tobacco [...]
--- OUTSIDE RECORDS SUMMARY | 2025-01-17 11:47 | XMS_ITS | Clinical Summary ---
Author Organization [facility] [address] [facility] Address [address] [facility] [place] [address] Phone Care Team Providers Care Waxed Bag Machine Operator Name Role Phone Martha Vidal MD Primary [...] 4:00 PM EST Clinical Support Adult Medicine [address] [phone] Vitamin B12 deficiency disease (Primary Dx) 11/10/2024 4:15 PM EST Clinical Support Adult Medicine [address] [address] Vitamin B12 deficiency disease (Primary Dx) from [...] 12:30 PM EDT Office Visit Adult Medicine [address] [address] Melissa Bains PA [address] [place] [address] Health Maintenance Due Date Last Done Comments [...] * Annual BMP Blood Test (06/16/2024) Pathologist [facility] Annual BMP Blood Test Abstracted us Historical Provider MD HEALTH MAINTENANCE Final Result * (ABNORMAL) Lipid panel (06/16/2024) Pathologist [facility] LDL/HDL Ratio 5(A) 0 - 4 Triglycerides 312(A) 0 - 150 mg/dL Cholesterol 206(A) 0 - 200 mg/dL HDL 45 >=40 mg/dL LDL Cholesterol 99 0 - 100 mg/dL Blood Venous blood specimen / Unknown Historical Provider LAB BLOOD ORDERABLES Mandie l Result * Cervical Cancer Screening: HPV (09/02/2022) Pathologist [facility] Cervical Cancer Screening: HPV Negative, Abstracted Historical Provider HEALTH MAINTENANCE Final Result * HIV Screening (08/23/2004) [facility] HIV Screening Abstracted [facility] Provider HEALTH MAINTENANCE Final Result from Last 3 Months or Most Recently Relevant to Health Maintenance Care Teams Waxed Bag Machine Operator Relationship Specialty Start Date End Date Martha Vidal MD [address], [place] PCP - General Internal Medicine 05/02/22
--- OUTSIDE RECORDS SUMMARY | 2025-01-17 11:47 | XMS_ITS | Encounter Summary ---
Author Organization [facility] Address [address] [place] [address] 7 [place] [address] Care Team Providers Care Prison Teacher Name Role Phone Unavailable Primary Care Provider Unavailabl e Encounter Details Date Type Department Care Team (Late st Contact Info) Description 01/11/2025 Orders Only [facility] External Provider, [facility] Social History Tobacco Use Types Packs/Day [...] EDT Narrative 01/12/2025 1:43 AM EDT ? [facility] ?[address] ?[place] [address] ?XRay Report ? Signed ? Patient: Masood,Nathalie Machado ?MR#: M ?? [id number] ? : 1985 ?Acct:[id number] ? Age/Sex: 39 / F ?ADM Date: 01/11/25 ? Loc: HO.ED ? Attending Dr: ? Ordering Physician: Augusto Esparza MD ?? Date of Service: 01/12/25 ?? Procedure(s): XR tibia fibula LT 2V ?? Accession Number(s): [id number] ? cc: Augusto Esparza MD; Leandra Carbajal [...] on ?? 01/12/2025 01:41:25 ? Dictated By: ?Elina Preciado MD ? Signed By: ?<Electronically signed by Elian Preciado MD in OV> ?01/12/25 0142 ? DD/ 0141 ? TD/TT: 01/12/25 0141 ? Chargemaster Specialist: ? Procedure Note Pj, Image - 01/13/[address] [address] XRay Report Signed Patient: Nathalie CorreiaIDR#: M [id number] : 1985Acct:[id number] Age/Sex: 39 / FADM Date: 01/11/25 Loc: HO.ED Attending Dr: Ordering Physician: Augusto Esparza MD Date of Service: 01/12/25 Procedure(s): XR tibia fibula LT 2V Accession Number(s): [id number] cc: Augusto Esparza MD; Leandra Carbajal MD [...] in OV> 01/12/25141 DD/ 0 TD/TT: 01/12/25140 Chargemaster Specialist: [facility] External Provider IMG XR PROCEDURES Edited Result - Final * XR Sacrum Coccyx 2+ Views (01/12/2025 1:40 AM EDT) Anatomical Region Laterality Modality Sacrum, Coccyx Radiographic Stacey ging 01/12/2025 1:40 AM EDT Narrative 01/12/2025 1:42 AM EDT ? [facility] ?[address] ?[place] [address] ?XRay Report ? Signed ? Patient: Nathalie Correia ?MR#: M ?? [id number] ? : 1985 ?Acct:[id number] ? Age/Sex: 39 / F ?ADM Date: 01/11/25 ? Loc: HO.ED ? Attending Dr: ? Ordering Physician: Augusto Esparza MD ?? Date of Service: 01/12/25 ?? Procedure(s): XR sacrum coccyx min 2V ?? Accession Number(s): [id number] ? cc: Augusto Esparza MD; Leandra Carbajal [...] DD/ 0140 ? TD/TT: 01/12/25 0140 ? Chargemaster Specialist: ? Procedure Note Mary Oliva - 01/13/[address] [address] XRay Report Signed Patient: Nathalie CorreianMR#: M [id number] : 1985Acct:[id number] Age/Sex: 39 / FADM Date: 01/11/25 Loc: HO.ED Attending Dr: Ordering Physician: Augusto Esparza MD Date of Service: 01/12/25 Procedure(s): XR sacrum coccyx min 2V Accession Number(s): [id number] cc: Augusto Esparza MD; Leandra Carbajal MD [...] in OV> 01/12/25140 DD/ 9 TD/TT: 01/12/25139 Chargemaster Specialist: [facility] External Provider IMG XR PROCEDURES Edited Result - Final * XR Ankle 3+ Views Left (01/11/2025 10:03 PM EDT) Anatomical Region Laterality Modality Lower Extremities, Ankle Left Radiogr aphic Imaging 01/11/2025 10:0 3 PM EDT Narrative 01/11/2025 10:05 PM EDT ? [facility] ?[address] ?[place] [address] ?XRay Report ? Signed ? Patient: Correia,Nathalie Machado ?MR#: M ?? [id number] ? : 1985 ?Acct:[id number] ? Age/Sex: 39 / F ?ADM Date: 01/11/ ? Loc: HO.ED ? Attending Dr: ? Ordering Physician: Generic ED Physician ?? Date of Service: 01/11/25 ?? Procedure(s): XR ankle LT min 3V ?? Accession Number(s): [id number] ? cc: Generic ED Physician; Leandra Carbajal [...] ? DD/ 02 ? TD/TT: 01/11/252202 ? Chargemaster Specialist: ? Procedure Note Mary Oliva - 01/13/2025 [place] [address] XRay Report Signed Patient: Nathalie CorreiaIDR#: M [id number] : 1985Acct:[id number] Age/Sex: 39 / FADM Date: 01/11/25 Loc: HO.ED Attending Dr: Ordering Physician: Generic ED Physician Date of Service: 01/11/25 Procedure(s): XR ankle LT min 3V Accession Number(s): [id number] cc: Generic ED Physician; Leandra Carbajal MD [...] in OV> 01/11/252203 DD/ 02 TD/TT: 01/11/252202 Chargemaster Specialist: [facility] External Provider IMG XR PROCEDURES Edited Result - Final documented in this encounter Visit Diagnoses Not on filedocumented in this encounter
--- OUTSIDE RECORDS SUMMARY | 2025-01-17 11:47 | XMS_ITS | Clinical Summary ---
Author Organization [employer] Address [address] [place] [address] 7t [place] [address] Care Team Providers Care Tube Cleaning Operator Name Role Phone Unavailable Primary Care Provider Unavailabl e Encounters Date Type Department Care Team Description 01/11/2025 Orders Only [facility] External Provider, [facility] from Last 3 Months Social History Tobacco [...] EDT Narrative 01/12/2025 1:43 AM EDT ? [facility] ?[address] ?[place] [address] ?XRay Report ? Signed ? Patient: Nathalie Correia ?MR#: M ?? [id number] ? : 1985 ?Acct:[id number] ? Age/Sex: 39 / F ?ADM Date: 04/08/25 ? Loc: HO.ED ? Attending Dr: ? Ordering Physician: Augusto Esparza MD ?? Date of Service: 01/12/25 ?? Procedure(s): XR tibia fibula LT 2V ?? Accession Number(s): [id number] ? cc: Augusto Esparza MD; Leandra Carbajal [...] DD/ 0141 ? TD/TT: 01/12/25 0141 ? Salvage Engineering Technician: ? Procedure Note Donmanuel, Image - 01/13/[address] [address] XRay Report Signed Patient: Nathalie CorreianMR#: M [id number] : 1985Acct:[id number] Age/Sex: 39 / FADM Date: 01/11/25 Loc: HO.ED Attending Dr: Ordering Physician: Augusto Esparza MD Date of Service: 01/12/25 Procedure(s): XR tibia fibula LT 2V Accession Number(s): [id number] cc: Augusto Esparza MD; Leandra Carbajal MD [...] in OV> 01/12/25141 DD/ 0141 TD/TT: 01/12/25140 Salvage Engineering Technician: [facility] External Provider IMG XR PROCEDURES Edited Result - Final * XR Sacrum Coccyx 2+ Views (01/12/2025 1:40 AM EDT) Anatomical Region Laterality Modality Sacrum, Coccyx Radiographic Stacey ging 01/12/2025 1:40 AM EDT Narrative 01/12/2025 1:42 AM EDT ? [facility] ?[address] ?[place], [place] [address] ?XRay Report ? Signed ? Patient: MasoodNathaliedania Machado ?MR#: M ?? [id number] ? : 1985 ?Acct:[id number] ? Age/Sex: 39 / F ?ADM Date: 01/11/25 ? Loc: HO.ED ? Attending Dr: ? Ordering Physician: Augusto Esparza MD ?? Date of Service: 01/12/25 ?? Procedure(s): XR sacrum coccyx min 2V ?? Accession Number(s): [id number] ? cc: Augusto Esparza MD; Leandra Carbajal [...] DD/ 0140 ? TD/TT: 01/12/25 0140 ? Salvage Engineering Technician: ? Procedure Note Mayr Oliva - 01/13/[address] [address] XRay Report Signed Patient: Nathalie CorreiaAnna#: M [id number] : 1985Acct:[id number] Age/Sex: 39 / FADM Date: 01/11/25 Loc: HO.ED Attending Dr: Ordering Physician: Augusto Esparza MD Date of Service: 01/12/25 Procedure(s): XR sacrum coccyx min 2V Accession Number(s): [id number] cc: Augusto Esparza MD; Leandra Carbajal MD [...] in OV> 01/12/25140 DD/ 9 TD/TT: 01/12/25139 Salvage Engineering Technician: [facility] External Provider IMG XR PROCEDURES Edited Result - Final * XR Ankle 3+ Views Left (01/11/2025 10:03 PM EDT) Anatomical Region Laterality Modality Lower Extremities, Ankle Left Radiogr aphic Imaging 01/11/2025 10:0 3 PM EDT Narrative 01/11/2025 10:05 PM EDT ? [facility] ?[address] ?[place] [address] ?XRay Report ? Signed ? Patient: Nathalie Correia ?MR#: M ?? [id number] ? : 1985 ?Acct:[id number] ? Age/Sex: 39 / F ?ADM Date: 01/11/25 ? Loc: HO.ED ? Attending Dr: ? Ordering Physician: Generic ED Physician ?? Date of Service: 01/11/25 ?? Procedure(s): XR ankle LT min 3V ?? Accession Number(s): [id number] ? cc: Generic ED Physician; Leandra Carbajal [...] ? DD/ 02 ? TD/TT: 01/11/252202 ? Salvage Engineering Technician: ? Procedure Note Donmargarethter, Image - 01/13/2025 [place] [address] XRay Report Signed Patient: Nathalie CorreiaNER#: M [id number] : 1985Acct:[id number] Age/Sex: 39 / FADM Date: 01/11/25 Loc: HO.ED Attending Dr: Ordering Physician: Generic ED Physician Date of Service: 01/11/25 Procedure(s): XR ankle LT min 3V Accession Number(s): [id number] cc: Generic ED Physician; Leandra Carbajal MD [...] MD Signed By: <Electronically signed by Elian Precaido MD in OV> 01/11/252203 DD/ 02 TD/TT: 01/11/252202 Salvage Engineering Technician: [facility] External Provider IMG XR PROCEDURES Edited Result - Final * HPV mRNA E6/E7 (10/16/2016 10:39 AM EST) HPV mRNA E6/E7 Not Detected NOT DETECTED [facility] Comment: This test was performed using the APTIMA(R) HPV Assay ([employer] This assay detects E6/E7 viral messenger RNA (mRNA) from 14 high-risk HPV types (16,18,31,33,35,39,45,51, 52,56,58,59,66,68). For additional information please refer to: http://education.Imprivata/faq/BKU740a5 (This link is being provided for informational/ educational purposes only.) Test Performed by [employer], [employer] [facility], [address] [place] [address] Levi Chairez M.D., Ph.D., Director of Laboratories , [facility] [id number] Please note: ??Effective 06/17/2016, HPV testing will be performed using [employer]'s APTIMA test which targets mRNA. Detecting mRNA instead of DNA, as in older methods, offers significant improvements in specificity. 10/16/2016 10:3 9 AM EST us Historical Provider HISTORICAL/NON ORDERABLE LABS Final Result [facility] [address] from Last 3 Months or Most Recently Relevant to Health Maintenance
[2025-01-18] VITALS (7 sets, daily range): BP systolic 129–152; BP diastolic 86–93; PULSE 81–110; RESP 12–20; TEMP 36.4–36.9; O2SAT 98; BMI 29.2; BMI 29.6
--- NOTE | ~2025-01-18 | FL_ITS ---
EXAMINATION: FL GUIDANCE ONLY HISTORY: LEFT ANKLE ORIF COMPARISON: Correlation is made with plain films of the left ankle dated 01/11/2025. TECHNIQUE: Fluoroscopy time: 0.1 minutes. Cumulative Dose: 0.283 mGy. DAP: 0.64799 mGym2 Images: 4. FINDINGS: Images demonstrate internal fixation of the previously noted fracture of the distal fibula with a sideplate and multiple orthopedic screws. Fibular alignment is now anatomic. There is persistent slight widening of the medial aspect of the ankle mortise. FL/FL guidance in OR IMPRESSION: Fluoroscopy during procedure. Please see procedure report for additional information. Electronically signed by: Gordy Hernández MD 01/19/2025 07:11 AM EDT
[2025-01-18 10:27] LABS: Urine Pregnancy NEGATIVE (NEGATIVE)
[2025-01-18 10:28] LABS: UPreg QC Valid YES
[2025-01-18] MEDS: Lactated Ringers 1,000 ML 50 ML IVCONT (10:39)
--- NOTE | 2025-01-18 10:54 | MHC.SHP ---
Pre-Procedural Eval Section A - 24 Hr Update-Section A only Date of Service: 01/18/25 The patient is an INPATIENT: No Changes since office visit: No Cold of Flu in the past 2 weeks, No New Medical Problems, No Changes in Medication and No Patient answered all questions The patient has been examined within 24 hours of the surgical procedure. The History & Physical has been completed within 30 days and I have reviewed it.: Yes Section B - Complete if H&P > 30 days Chief Complaint: Displaced bimalleolar fracture of left lower leg, Allergies: Allergies Allergy/AdvReac Type Severity Reaction Status Date / Time No Known Allergies Allergy Verified 01/17/25 09:49 Plan I have reviewed the history and physical and performed a pertinent physical examination on my patient. No changes have occurred unless specified. Time Spent With Patient Time: Total time managing care of this patient today ____ minutes.
--- NOTE | 2025-01-18 11:57 | HO.ANESPROP2 ---
HPI - Anesthesia Eval Consult details Narrative: ankle orif PMFSH Past Medical History Medical History Marijuana use GERD (gastroesophageal reflux disease) Anxiety Depression Family History Family history of problems with anesthesia: No Surgical History Surgical History No pertinent past surgical history History of Problems with Anesthesia: No Social History Social History Patient Tobacco Use Status: Never used Tobacco Have you been hit, kicked, punched, or otherwise hurt by someone within the past year? If so, by whom?: No Are you DNR?: No Advance Directives: No Advance Directives Information Provided: Yes Patient : No FDLMP: 2 weeks ago Current occupational status: employed Current occupation: [employer] Meds Allergies Allergy/AdvReac Type Severity Reaction Status Date / Time No Known Allergies Allergy Verified 01/17/25 09:49 Active Medications: Current Medications Lactated Ringer's (Lr) 1,000 mls @ 50 mls/hr IVCONT .Q20H NICANOR Last Admin: 01/18/25 10:39 Dose: 50 mls/hr Home Medications ?Medication ?Instructions ?Recorded ?Confirmed ?Last Taken ?Type escitalopram oxalate 10 mg tablet 10 mg PO DAILY 01/17/25 01/18/25 01/17/25 History hydroxyzine HCl 25 mg tablet 25 mg PO DAILY 01/17/25 01/18/25 01/17/25 History vit no.95-ferrous 1 tab PO DAILY 01/17/25 01/18/25 01/17/25 History fumarate 28 mg-folic acid 800 mcg tablet () cyclobenzaprine 5 mg tablet 5 mg PO BEDTIME PRN Spasms 01/18/25 01/18/25 01/17/25 History omeprazole 10 mg capsule,delayed 10 mg PO DAILY 01/18/25 01/18/25 01/17/25 History release Exam Height,Weight and Vital Signs: Height 5 ft 4 in Weight 78.23 kg Last Vital Signs Temp 98.5 F 01/18/25 10:26 Pulse 99 01/18/25 10:26 Resp 20 01/18/25 10:26 BP 135/92 H 01/18/25 10:26 Pulse Ox 98 01/18/25 10:26 O2 Del Method Room Air 01/18/25 10:26 Pertinent Lab Results Pertinent Lab Results: Laboratory Tests 01/18/25 10:10 Urine Test NEGATIVE Airway Mallampati Class: II TM Dist: >3cm Heart: rrr Lungs: cta Assessment and Plan Assessment Anesthesia Assessment: Anesthesia Plan Discussed and Chart Reviewed Final Anesthetic Review Family History of Problems with Anesthesia: No History of Problems with Anesthesia: No NPO: Yes ASA Class: II Final Preanesthetic Review: No Changes in Pt Med Stat, Meds/Allgs Chart Reviewed, Consent Obtained/Reviewed and Anes Risks/Benef Reviewed Patient Risk: Low Procedure Risk: Low Anesthetic Plan Anesthetic Plan: GA, Regional Block and Agree w/ Assess. and Plan Disposition: Standard PACU
[2025-01-18] MEDS: ceFAZolin Sodium/Dextrose,Iso 2 GM/50 ML PIGGYBACK IV (13:50)
[2025-01-18] MEDS: Acetaminophen 1,000 MG/100 ML PIGGYBACK 400 MG IV (14:13)
--- NOTE | 2025-01-18 14:39 | PM.OP ---
Brief Operative Note Date of Service: 01/18/25 Pre-op diagnosis: left ankle fracture Post-op diagnosis: same Procedure: ORIF left lateral malleolus Implants: Pangea 5 hole lateral plate Surgeon: Hermann Carmona MD Anesthesia: GETA and regional Was an Outside Industrial Sales Representative used for this Procedure?: No Estimated blood loss (mL): 50 Tourniquet time (min): 35 IV fluids (mL): 800 Pathology: none sent Condition: stable Disposition: PACU
[2025-01-18] MEDS: oxyCODONE HCl Immed Release 5 MG TABLET PO (15:03)
--- NOTE | 2025-01-20 17:21 | W.PM.OPN ---
Operative Note Operative Note Date of Service: 01/18/25 Narrative: Date of Service: 01/18/25 Pre-op diagnosis: left ankle fracture Post-op diagnosis: same Procedure: ORIF left lateral malleolus Implants: Pangea 5 hole lateral plate Surgeon: Hermann Carmona MD Anesthesia: GETA and regional Was an Sole Edge Inker Machine used for this Procedure?: No Estimated blood loss (mL): 50 Tourniquet time (min): 35 IV fluids (mL): 800 Pathology: none sent Condition: stable Disposition: PACU Procedure in detail: Patient was brought to the operating room and placed supine on the operative table. All bony prominences were well padded and a time-out was called to identify proper site proper procedure proper surgeon. IV antibiotics per weight were administered. I began by exsanguinating limb is slightly tourniquet to 300 mm Hg. I then made a standard posterolateral incision over the fibula. Full-thickness flaps were taken down to the fibular shaft and distal fibula. The fracture was identified and cleaned with a combination of curette, rongeur and irrigation. It was comminuted and distal. I did not think it could hold a lag screw. A lobster claw was used to provisionally reduce the fracture and a 5 hole distal fibular Pange lateral locking plate was applied using standard AO technique. Six distal locking screws were placed and 8 cortices proximal to the fracture. Biplanar fluoroscopy was used to confirm hardware position and fracture reduction. Once I was satisfied that both of these were acceptable I irrigated copiously and turned my attention to the medial side. . This syndesmosis was tested using external rotation test and was found to be stable. Therefore all instrumentation was removed and copious irrigation was performed. Absorbable suture and ludwig were used for closure and the patient was placed into sterile dressings and a well-padded posterior splint. Tourniquet was let down and the patient was extubated brought to recovery room in stable condition there were no known complications.
== END 2025-01-18 15:37 | disposition home or self-care (01) ==
LOC: HO.SSS 10:02
PROVIDERS: Anesthesiology; PCP Student in an Organized Health Care Education/Training Program; Visit Provider Orthopaedic Surgery
PROC: (CPT 27792; principal; 2025-01-18 14:00)
DX: S82.832A Other fracture of upper and lower end of left fibula, initial encounter for closed fracture (principal); W10.8XXA Fall (on) (from) other stairs and steps, initial encounter; Y93.01 Activity, walking, marching and hiking; Y92.9 Unspecified place or not applicable; Y99.9 Unspecified external cause status; F32.A Depression, unspecified; F41.9 Anxiety disorder, unspecified; K21.9 Gastro-esophageal reflux disease without esophagitis; Z79.899 Other long term (current) drug therapy
CPT/HCPCS: 27792; 81025; C1713; J0131; J0665; J0690; J1100; J1885; J2003; J2250; J2405; J2704

== ENCOUNTER → 2025-01-18 10:00 | Outpatient (BNV) | payer OTHER, SELFPAY | PROVIDERS: PCP Student in an Organized Health Care Education/Training Program; Visit Provider Orthopaedic Surgery | DX: S82.892A Other fracture of left lower leg, initial encounter for closed fracture (principal) | CPT/HCPCS: 27792 ==

== ENCOUNTER 2025-01-31 08:10 | Outpatient (REF) | payer OTHER, SELFPAY ==
--- NOTE | ~2025-01-31 | XR_ITS ---
CLINICAL HISTORY: M25.572 - Pain in left ankle and joints of left foot --- Additional Notes or Specia l Instructions: Out of splint Left ankle three views Comparison: 01/11/2025 Findings: Status post distal fibular fracture fixation. Plate and screws are intact. There is normal alignment. No new bony abnormality noted. Impression: Status post fixation distal fibular fracture This document has been electronically signed by: Jevon Crow MD on 02/02/2025 18:12:27
--- OUTSIDE RECORDS SUMMARY | 2025-01-31 08:23 | XMS_ITS | Clinical Summary ---
Author Organization [employer] [facility] Address [address] [place] [address] 7t [place] [address] Care Team Providers Care Hand Box Coverer Name Role Phone Unavailable Primary Care Provider Unavailabl e Encounters Date Type Department Care Team Description 01/11/2025 Orders Only [facility] External Provider, [facility] from Last 3 Months Social History Tobacco [...] Tobacco Screening 1999 Family Planning (PISQ) 2002 Hepatitis B Vaccines (1 of 3 - 19+ 3-dose series) 2006 Pap Smear 2008 Cervical Cancer Screening 10/16/2021 HPV/Cotest 10/16/2021 10/16/2016 COVID-19 Vaccine ( - 2023-2 5 season) 2024 DTaP/Tdap/Td Vaccines (3 - T d or Tdap) 11/13/2032 11/13/2022, 02/01/2009 Zoster Vaccines (1 of 2) 2037 RSV Patients and Patients Aged 60 years or older (1 - 1-dose 75+ series) 2062 Influenza Vaccine Completed 06/16/2024 HIB Vaccines Aged [...] to 49) Years) Aged Out No longer eligible b [...] EDT Narrative 01/12/2025 1:43 AM EDT ? [facility] ?[address] ?[place] [address] ?XRay Report ? Signed ? Patient: Masood,Nathalie Machado ?MR#: M ?? [id number] ? : 1985 ?Acct:[id number] ? Age/Sex: 39 / F ?ADM Date: 04/08/25 ? Loc: HO.ED ? Attending Dr: ? Ordering Physician: Augusto Esparza MD ?? Date of Service: 01/12/25 ?? Procedure(s): XR tibia fibula LT 2V ?? Accession Number(s): [id number] ? cc: Augusto Esparza MD; Leandra Carbajal [...] DD/ 0141 ? TD/TT: 01/12/25 0141 ? Cloth Laminating Supervisor: ? Procedure Note Donmanuel, Image - 01/13/[address] [address] XRay Report Signed Patient: Nathalie CorreianMR#: M [id number] : 1985Acct:[id number] Age/Sex: 39 / FADM Date: 01/11/25 Loc: HO.ED Attending Dr: Ordering Physician: Augusto Esparza MD Date of Service: 01/12/25 Procedure(s): XR tibia fibula LT 2V Accession Number(s): [id number] cc: Augusto Esparza MD; Leandra Carbajal MD [...] in OV> 01/12/25141 DD/ 0 TD/TT: 01/12/25140 Cloth Laminating Supervisor: [facility] External Provider IMG XR PROCEDURES Edited Result - Final * XR Sacrum Coccyx 2+ Views (01/12/2025 1:40 AM EDT) Anatomical Region Laterality Modality Sacrum, Coccyx Radiographic Stacey ging 01/12/2025 1:40 AM EDT Narrative 01/12/2025 1:42 AM EDT ? [facility] ?[address] ?[place] [address] ?XRay Report ? Signed ? Patient: Nathalie Correia ?MR#: M ?? [id number] ? : 1985 ?Acct:[id number] ? Age/Sex: 39 / F ?ADM Date: 01/11/25 ? Loc: HO.ED ? Attending Dr: ? Ordering Physician: Augusto Esparza MD ?? Date of Service: 01/12/25 ?? Procedure(s): XR sacrum coccyx min 2V ?? Accession Number(s): [id number] ? cc: Augusto Esparza MD; Leandra Carbajal [...] DD/ 0140 ? TD/TT: 01/12/25 0140 ? Cloth Laminating Supervisor: ? Procedure Note Mary Oliva - 01/13/[address] [address] XRay Report Signed Patient: Mireille Correiameri Cortes#: M [id number] : 1985Acct:[id number] Age/Sex: 39 / FADM Date: 01/11/25 Loc: HO.ED Attending Dr: Ordering Physician: Augusto Esparza MD Date of Service: 01/12/25 Procedure(s): XR sacrum coccyx min 2V Accession Number(s): [id number] cc: Augusto Esparza MD; Leandra Carbajal MD [...] in OV> 01/12/25140 DD/ 9 TD/TT: 01/12/25139 Cloth Laminating Supervisor: [facility] External Provider IMG XR PROCEDURES Edited Result - Final * XR Ankle 3+ Views Left (01/11/2025 10:03 PM EDT) Anatomical Region Laterality Modality Lower Extremities, Ankle Left Radiogr aphic Imaging 01/11/2025 10:0 3 PM EDT Narrative 01/11/2025 10:05 PM EDT ? [facility] ?[address] ?[place] [address] ?XRay Report ? Signed ? Patient: Nathalie Correia ?MR#: M ?? [id number] ? : 1985 ?Acct:[id number] ? Age/Sex: 39 / F ?ADM Date: 01/11/25 ? Loc: HO.ED ? Attending Dr: ? Ordering Physician: Generic ED Physician ?? Date of Service: 01/11/25 ?? Procedure(s): XR ankle LT min 3V ?? Accession Number(s): [id number] ? cc: Generic ED Physician; Leandra Carbajal [...] ? DD/ 02 ? TD/TT: 01/11/252202 ? Cloth Laminating Supervisor: ? Procedure Note Sadiqcalebjeysonmickey, Image - 01/13/2025 [place] [address] XRay Report Signed Patient: Nathalie CorreianMR#: M [id number] : 1985Acct:[id number] Age/Sex: 39 / FADM Date: 01/11/25 Loc: HO.ED Attending Dr: Ordering Physician: Generic ED Physician Date of Service: 01/11/25 Procedure(s): XR ankle LT min 3V Accession Number(s): [id number] cc: Generic ED Physician; Leandra Carbajal MD [...] in OV> 01/11/252203 DD/ 02 TD/TT: 01/11/252202 Cloth Laminating Supervisor: [facility] External Provider IMG XR PROCEDURES Edited Result - Final * HPV mRNA E6/E7 (10/16/2016 10:39 AM EST) HPV mRNA E6/E7 Not Detected NOT DETECTED [facility] Comment: This test was performed using the APTIMA(R) HPV Assay ([employer] This assay detects E6/E7 viral messenger RNA (mRNA) from 14 high-risk HPV types (16,18,31,33,35,39,45,51, 52,56,58,59,66,68). For additional information please refer to: http://education.Dailybreak Media/faq/JGB725v2 (This link is being provided for informational/ educational purposes only.) Test Performed by [employer], [facility], [address] [place] [address] Levi Chairez M.D., Ph.D., Director of Laboratories , [place] [id number] Please note: ??Effective 06/17/2016, HPV testing will be performed using [employer]'s APTIMA test which targets mRNA. Detecting mRNA instead of DNA, as in older methods, offers significant improvements in specificity. 10/16/2016 10:3 9 AM EST us Historical Provider HISTORICAL/NON ORDERABLE LABS Final Result [facility] [address] from Last 3 Months or Most Recently Relevant to Health Maintenance
--- OUTSIDE RECORDS SUMMARY | 2025-01-31 08:24 | XMS_ITS | Encounter Summary ---
Author Organization [employer] [facility] Address [address] [place] [address] 7 [place] [address] Care Team Providers Care Wire Winder Name Role Phone Unavailable Primary Care Provider Unavailabl e Encounter Details Date Type Department Care Team (Latest Contact Info) Description 02/05/2022 Abstract [facility] CONVERSIONS Dental, Provider, DDS Social History [...]
--- OUTSIDE RECORDS SUMMARY | 2025-01-31 08:24 | XMS_ITS | Clinical Summary ---
Author Organization [facility] [address] [facility] Address [address] [facility] [place] [address] Phone Care Team Providers Care Mutuel Department Manager Name Role Phone Martha Vidal MD Primary [...] bedtime. at bedtime. 90 tablet 5 Active cyclobenzaprine (FLEXERIL) 5 mg tablet [...] 4:00 PM EST Clinical Support Adult Medicine [address] [phone] Vitamin B12 deficiency disease (Primary Dx) 11/10/2024 4:15 PM EST Clinical Support Adult Medicine [address] [phone] Vitamin B12 deficiency disease (Primary Dx) from [...] 12:30 PM EDT Office Visit Adult Medicine [address] [address] Melissa Bains PA [address] [place] [address] Health Maintenance Due Date Last Done Comments Hepatitis B Vaccines (1 of 3 - 19+ 3-dose series) 2006 Depression Screening 09/15/2022 Hepatitis C Screening 09/15/2022 Social Influencers of Health Screening 09/15/2022 COVID-19 Vaccine (3 - 2023-2 5 season) 2024 01/29/2021, 12/31/2020 [...] Results * Annual BMP Blood Test (06/16/2024) [facility] Annual BMP Blood Test Abstracted Historical Provider HEALTH MAINTENANCE Final Result * (ABNORMAL) Lipid panel (06/16/2024) [facility] LDL/HDL Ratio 5(A) 0 - 4 Triglycerides 312(A) 0 - 150 mg/dL Cholesterol 206(A) 0 - 200 mg/dL HDL 45 >=40 mg/dL LDL Cholesterol 99 0 - 100 mg/dL Blood Venous blood specimen / Unknown Historical Provider LAB BLOOD ORDERABLES Mandie l Result * Cervical Cancer Screening: HPV (09/02/2022) [facility] Cervical Cancer Screening: HPV Negative, Abstracted Historical Provider HEALTH MAINTENANCE Final Result * Hm HIV Screening (08/23/2004) HIV Screening Abstracted Historical Provider HEALTH MAINTENANCE Final Result from Last 3 Months or Most Recently Relevant to Health Maintenance Insurance [employer] [facility] Care Teams Mutuel Department Manager Relationship Specialty Start Date End Date Martha Vidal MD [address] [facility], [place] PCP - General Internal Medicine 05/02/22
--- OUTSIDE RECORDS SUMMARY | 2025-01-31 08:24 | XMS_ITS | Encounter Summary ---
Author Organization [facility] Address [address] [place] [address] Care Team Providers Care Director Of Intelligence Name Role Phone Martha Vidal MD Primary Care Pr ovider Encounter Details Date Type Department Care Team (Late st Contact Info) Description 07/08/2024 4:30 PM EDT Hospital Encounter TH HISTORIC ENCOUNTERS EASTERN CONVERSION ONLY Martha Vidal MD [address] [place] [address] Social History Tobacco Use Types Packs/Day Years [...] 12:30 PM EDT Office Visit Adult Medicine [address] [phone] Melissa Bains PA [address] [place] [address] documented as of this encounter Visit Diagnoses Not on filedocumented in this encounter Care Teams Director Of Intelligence Relationship Specialty Start Date End Date Martha Vidal MD [address] [place] [address] [place], [place] PCP - General Internal Medicine 05/02/22 documented as of this encounter
== END 2025-01-31 08:11 | disposition home or self-care (01) ==
LOC: HO.HOSX 08:10
DX: M25.572 Pain in left ankle and joints of left foot (principal); S82.832D Other fracture of upper and lower end of left fibula, subsequent encounter for closed fracture with routine healing; Z98.890 Other specified postprocedural states
CPT/HCPCS: 29405; 73610

== ENCOUNTER 2025-01-31 10:37 | Outpatient (AMB) | payer OTHER, SELFPAY ==
--- NOTE | 2025-01-31 10:48 | MHC.OFFVIS ---
Intake Visit Reasons: PO: Lt Ankle ORIF 01/18/25 NE Intake Note: Nathalie is a 39 year old female who presents today post operative s/p ORIF of left lateral malleolus DOS: 01/20/[address] Hermann Carmona. Splint removed and xrays updated in office. State she is doing well, she has pain at night time, she has run out of pain medication and would like to request refill. Allergies No Known Allergies Allergy (Verified 01/31/25 10:56) HPI HPI PO: Lt Ankle ORIF 01/18/25 NE: Details: Nathalie is a 39 year old female who presents today post operative s/p ORIF of left lateral malleolus DOS: 01/20/[address] Hermann Carmona. Splint removed and xrays updated in office. State she is doing well, she has pain at night time, she has run out of pain medication and would like to request refill. 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 Review of Systems Const All systems reviewed & are unremarkable except as noted in HPI and below Physical Exam Const General: cooperative, healthy appearing, comfortable, no acute distress, well developed and alert Orientation/consciousness: patient oriented x3 HEENT Head: Yes normal to inspection, Yes normocephalic and Yes atraumatic Eyes General: appearance normal, both eyes and all related structures Neck Neck: Yes normal visual inspection and Yes no lymphadenopathy Resp Effort & Inspection: normal respiratory effort and able to speak in complete sentences Cardio Rate: regular rate Peripheral pulses: Peripheral pulses 2+ throughout GI Inspection: Yes normal to inspection Palpation (GI): Soft to palpation Skin General skin exam: no rashes or lesions noted Neuro General: patient oriented x3 Extrem Other: Left ankle is edematous and ecchymotic to inspection. She has diffuse swelling throughout the foot and ankle, improved from preoperative evaluation. There is a well approximated and well healing incision noted on the lateral aspect of the left ankle, no drainage at this time. Distal sensation intact Capillary refill brisk Psych Appearance: grossly normal Mental Status: mental status grossly normal Office Procedures Casting/Splints 16928-Ehaea Leg Cast Application Procedure code (CPT) selection complete Results Reviewed Results Reviewed: X-rays obtained in the office today and independently reviewed by me, Polo Cisneros PA-C, demonstrate surgically reduced fracture of the left distal fibula with orthopedic hardware in place and in satisfactory clinical alignment. Assessment & Plan Assessment & Plan (1) Closed fracture of left distal fibula: Code(s): S82.832A - Other fracture of upper and lower end of left fibula, initial encounter for closed fracture Category: Medical Plan 1. Status post ORIF of left fibula DOS 01/18/2025 Patient appears to be recovering well postoperatively Patient is educated about the typical recovery course At this time, patient was placed into a short-leg cast Nonweightbearing on left lower extremity for a further 4 weeks The patient is educated on proper cast care and precautions Follow-up in 4 weeks, sooner with any acute concerns Orders: Orders XR ankle LT min 3V Today M25.572 - Pain in left ankle and joints of left foot Medications: New ibuprofen 600 mg PO Q8H PRN 42 tabs 0RF pain Coding Level of Care Code Global (73433) Diagnoses Closed fracture of left distal fibula S82.832A CPT Codes Casting - CPT: 29961-Ygjle Leg Cast Application ([id number])
--- OUTSIDE RECORDS SUMMARY | 2025-01-31 12:33 | XMS_ITS | Clinical Summary ---
Author Organization [employer] [facility] Address [address] [place] [address] 7t [place] [address] Care Team Providers Care General Operations Agent Name Role Phone Unavailable Primary Care Provider Unavailabl e Encounters Date Type Department Care Team Description 01/11/2025 Orders Only [facility] External Provider, [facility] from Last 3 Months Social History Tobacco [...] EDT Narrative 01/12/2025 1:43 AM EDT ? [facility] ?[address] ?[place] [address] ?XRay Report ? Signed ? Patient: Masood,Nathalie Machado ?MR#: M ?? [id number] ? : 1985 ?Acct:[id number] ? Age/Sex: 39 / F ?ADM Date: 04/08/25 ? Loc: HO.ED ? Attending Dr: ? Ordering Physician: Augusto Esparza MD ?? Date of Service: 01/12/25 ?? Procedure(s): XR tibia fibula LT 2V ?? Accession Number(s): [id number] ? cc: Augusto Esparza MD; Leandra Carbajal [...] DD/ 0141 ? TD/TT: 01/12/25 0141 ? Manufacturer Representative: ? Procedure Note Donmanuel, Image - 01/13/[address] [address] XRay Report Signed Patient: Nathalie CorreianMR#: M [id number] : 1985Acct:[id number] Age/Sex: 39 / FADM Date: 01/11/25 Loc: HO.ED Attending Dr: Ordering Physician: Augusto Esparza MD Date of Service: 01/12/25 Procedure(s): XR tibia fibula LT 2V Accession Number(s): [id number] cc: Augusto Esparza MD; Leandra Carbajal MD [...] in OV> 01/12/25141 DD/ 0 TD/TT: 01/12/25140 Manufacturer Representative: [facility] External Provider IMG XR PROCEDURES Edited Result - Final * XR Sacrum Coccyx 2+ Views (01/12/2025 1:40 AM EDT) Anatomical Region Laterality Modality Sacrum, Coccyx Radiographic Stacey ging 01/12/2025 1:40 AM EDT Narrative 01/12/2025 1:42 AM EDT ? [facility] ?[address] ?[place] [address] ?XRay Report ? Signed ? Patient: Nathalie Correia ?MR#: M ?? [id number] ? : 1985 ?Acct:[id number] ? Age/Sex: 39 / F ?ADM Date: 01/11/25 ? Loc: HO.ED ? Attending Dr: ? Ordering Physician: Augusto Esparza MD ?? Date of Service: 01/12/25 ?? Procedure(s): XR sacrum coccyx min 2V ?? Accession Number(s): [id number] ? cc: Augusto Esparza MD; Leandra Carbajal [...] DD/ 0140 ? TD/TT: 01/12/25 0140 ? Manufacturer Representative: ? Procedure Note Mary Oliva - 01/13/[address] [address] XRay Report Signed Patient: Mireille Correiameri Cortes#: M [id number] : 1985Acct:[id number] Age/Sex: 39 / FADM Date: 01/11/25 Loc: HO.ED Attending Dr: Ordering Physician: Augusto Esparza MD Date of Service: 01/12/25 Procedure(s): XR sacrum coccyx min 2V Accession Number(s): [id number] cc: Augusto Esparza MD; Leandra Carbajal MD [...] in OV> 01/12/25140 DD/ 9 TD/TT: 01/12/25139 Manufacturer Representative: [facility] External Provider IMG XR PROCEDURES Edited Result - Final * XR Ankle 3+ Views Left (01/11/2025 10:03 PM EDT) Anatomical Region Laterality Modality Lower Extremities, Ankle Left Radiogr aphic Imaging 01/11/2025 10:0 3 PM EDT Narrative 01/11/2025 10:05 PM EDT ? [facility] ?[address] ?[place] [address] ?XRay Report ? Signed ? Patient: aNthalie Correia ?MR#: M ?? [id number] ? : 1985 ?Acct:[id number] ? Age/Sex: 39 / F ?ADM Date: 01/11/25 ? Loc: HO.ED ? Attending Dr: ? Ordering Physician: Generic ED Physician ?? Date of Service: 01/11/25 ?? Procedure(s): XR ankle LT min 3V ?? Accession Number(s): [id number] ? cc: Generic ED Physician; Leandra Carbajal [...] ? DD/ 02 ? TD/TT: 01/11/252202 ? Manufacturer Representative: ? Procedure Note Sadiqcalebjeysonmickey, Image - 01/13/2025 [place] [address] XRay Report Signed Patient: Nathalie CorreianMR#: M [id number] : 1985Acct:[id number] Age/Sex: 39 / FADM Date: 01/11/25 Loc: HO.ED Attending Dr: Ordering Physician: Generic ED Physician Date of Service: 01/11/25 Procedure(s): XR ankle LT min 3V Accession Number(s): [id number] cc: Generic ED Physician; Leandra Carbajal MD [...] in OV> 01/11/252203 DD/ 02 TD/TT: 01/11/252202 Manufacturer Representative: [facility] External Provider IMG XR PROCEDURES Edited Result - Final * HPV mRNA E6/E7 (10/16/2016 10:39 AM EST) HPV mRNA E6/E7 Not Detected NOT DETECTED [facility] Comment: This test was performed using the APTIMA(R) HPV Assay ([employer] This assay detects E6/E7 viral messenger RNA (mRNA) from 14 high-risk HPV types (16,18,31,33,35,39,45,51, 52,56,58,59,66,68). For additional information please refer to: http://education.[employer]/faq/HFC810n0 (This link is being provided for informational/ educational purposes only.) Test Performed by [facility], Sandata [facility], [address] [place] [address] Levi Chairez M.D., Ph.D., Director of Laboratories , [place] [id number] Please note: ??Effective 06/17/2016, HPV testing will be performed using [employer]'s APTIMA test which targets mRNA. Detecting mRNA instead of DNA, as in older methods, offers significant improvements in specificity. 10/16/2016 10:3 9 AM EST us Historical Provider HISTORICAL/NON ORDERABLE LABS Final Result [facility] [address] from Last 3 Months or Most Recently Relevant to Health Maintenance
--- OUTSIDE RECORDS SUMMARY | 2025-01-31 12:33 | XMS_ITS | Encounter Summary ---
Author Organization [employer] [facility] Address [address] [place] [address] 7 [place] [address] Care Team Providers Care Lpn Name Role Phone Unavailable Primary Care Provider Unavailabl e Encounter Details Date Type Department Care Team (Latest Contact Info) Description 02/05/2022 Abstract [facility] CONVERSIONS Dental, Provider, DDS Social History Tobacco [...]
--- OUTSIDE RECORDS SUMMARY | 2025-01-31 12:33 | XMS_ITS | Clinical Summary ---
Author Organization [facility] [address] [facility] Address [address] [facility] [place] [address] Phone Care Team Providers Care Hand Rug Braider Name Role Phone Martha Vidal MD Primary [...] 4:00 PM EST Clinical Support Adult Medicine [address] [phone] Vitamin B12 deficiency disease (Primary Dx) 11/10/2024 4:15 PM EST Clinical Support Adult Medicine [address] [address] Vitamin B12 deficiency disease (Primary Dx) from [...] 12:30 PM EDT Office Visit Adult Medicine [address] [phone] Melissa Bains PA [address] [place] [address] Health Maintenance Due Date Last Done Comments [...] Results * Annual BMP Blood Test (06/16/2024) [facility] Annual BMP Blood Test Abstracted Historical Provider HEALTH MAINTENANCE Final Result * (ABNORMAL) Lipid panel (06/16/2024) [facility] LDL/HDL Ratio 5(A) 0 - 4 Triglycerides [...] Most Recently Relevant to Health Maintenance Insurance [employer] [facility] Care Teams Hand Rug Braider Relationship Specialty Start Date End Date Martha Vidal MD [address] [facility], [place] PCP - General Internal Medicine 05/02/22
--- OUTSIDE RECORDS SUMMARY | 2025-01-31 12:33 | XMS_ITS | Encounter Summary ---
Author Organization [facility] Address [address] [place] [address] Care Team Providers Care Set Off Press Operator Name Role Phone Martha Vidal MD Primary Care Pr ovider Encounter Details Date Type Department Care Team (Late st Contact Info) Description 07/08/2024 4:30 PM EDT Hospital Encounter TH HISTORIC ENCOUNTERS EASTERN CONVERSION ONLY Martha Vidal MD [address] [place] [address] Social History Tobacco Use Types Packs/Day Years [...] 12:30 PM EDT Office Visit Adult Medicine [address] [address] Melissa Bains PA [address] [place] [address] documented as of this encounter Visit Diagnoses Not on filedocumented in this encounter Care Teams Set Off Press Operator Relationship Specialty Start Date End Date Martha Vidal MD [address] [place] [address] [place], [place] PCP - General Internal Medicine 05/02/22 documented as of this encounter
== END 2025-01-31 11:52 | disposition home or self-care (01) ==
LOC: HO.HOS 10:38
PROVIDERS: PCP Student in an Organized Health Care Education/Training Program
DX: S82.832D Other fracture of upper and lower end of left fibula, subsequent encounter for closed fracture with routine healing (principal)
CPT/HCPCS: 29405; 99024

== ENCOUNTER → 2025-01-31 10:39 | Outpatient (BNV) | payer OTHER, SELFPAY | PROVIDERS: Visit Provider Radiology Diagnostic Radiology | DX: M25.572 Pain in left ankle and joints of left foot (principal) | CPT/HCPCS: 73610 ==

== ENCOUNTER 2025-02-15 09:21 | Outpatient (AMB) | payer OTHER, SELFPAY ==
--- NOTE | 2025-02-15 09:22 | MHC.OFFVIS ---
Intake Visit Reasons: PO: Lt Ankle ORIF 01/18/25 NE Intake Note: Nathalie is a 39 year old female who presents today for a cast change s/p Left ankle ORIF 01/18/2025. She states that she noticed an odor coming from her cast. Cast removed in office, incision site clean dry and intact. no drainage. No increased pain Allergies No Known Allergies Allergy (Verified 01/31/25 10:56) HPI HPI PO: Lt Ankle ORIF 01/18/25 NE: Details: Nathalie is a 39 year old female who presents today for a cast change s/p Left ankle ORIF 01/18/2025. She states that she noticed an odor coming from her cast. Cast removed in office, incision site clean dry and intact. no drainage. No increased pain. 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 Review of Systems Const All systems reviewed & are unremarkable except as noted in HPI and below Physical Exam Const General: cooperative, healthy appearing, comfortable, no acute distress, well developed and alert Orientation/consciousness: patient oriented x3 HEENT Head: Yes normal to inspection, Yes normocephalic and Yes atraumatic Eyes General: appearance normal, both eyes and all related structures Neck Neck: Yes normal visual inspection and Yes no lymphadenopathy Resp Effort & Inspection: normal respiratory effort and able to speak in complete sentences Cardio Rate: regular rate Peripheral pulses: Peripheral pulses 2+ throughout GI Inspection: Yes normal to inspection Palpation (GI): Soft to palpation Skin General skin exam: no rashes or lesions noted Neuro General: patient oriented x3 Extrem Other: Left ankle is edematous and ecchymotic to inspection. She has very improved swelling throughout the foot and ankle, improved from previous evaluation. There is a well approximated and well healing incision noted on the lateral aspect of the left ankle, no drainage at this time. Distal sensation intact Capillary refill brisk Psych Appearance: grossly normal Mental Status: mental status grossly normal Office Procedures Casting/Splints 37050-Bcjqz Leg Cast Application Procedure code (CPT) selection complete Assessment & Plan Assessment & Plan (1) Closed fracture of left distal fibula: Code(s): S82.832A - Other fracture of upper and lower end of left fibula, initial encounter for closed fracture Category: Medical Plan 1. Status post ORIF of left fibula DOS 01/18/2025 Patient appears to be recovering well postoperatively Patient is educated about the typical recovery course At this time, cast changed and new cast is placed Nonweightbearing on left lower extremity for a further 2 weeks The patient is educated on proper cast care and precautions Follow-up for previously scheduled appointment, sooner with any acute concerns Coding Level of Care Code Global (42285) Diagnoses Closed fracture of left distal fibula S82.832A CPT Codes Casting - CPT: 21757-Twpas Leg Cast Application ([id number])
--- OUTSIDE RECORDS SUMMARY | 2025-02-15 09:54 | XMS_ITS | Encounter Summary ---
Author Organization [facility] Address [address] [place] [address] Care Team Providers Care Power System Operator Name Role Phone Martha Vidal MD Primary Care Pr ovider Encounter Details Date Type Department Care Team (Late st Contact Info) Description 07/08/2024 4:30 PM EDT Hospital Encounter TH HISTORIC ENCOUNTERS EASTERN CONVERSION ONLY Martha Vidal MD [address] [place] [address] Social History Tobacco Use Types Packs/Day Years [...] Care Team (Late st Contact Info) Description 03/25/2025 9:00 AM EDT Office Visit Adult Medicine [address] [phone] Melissa Bains PA [address] [place] [address] documented as of this encounter Visit Diagnoses Not on filedocumented in this encounter Care Teams Power System Operator Relationship Specialty Start Date End Date Martha Vidal MD [address] [place] [address] [place], [place] PCP - General Internal Medicine 05/02/22 documented as of this encounter
--- OUTSIDE RECORDS SUMMARY | 2025-02-15 09:54 | XMS_ITS | Clinical Summary ---
Author Organization [employer] Address [address] [facility] [address] [place] [address] Care Team Providers Care Bolt Loader Name Role Phone Unavailable Primary Care Provider Unavailabl e Encounters Date Type Department Care Team Description 01/11/2025 Orders Only [facility] External Provider, [facility] from Last 3 Months Social History [...] Lower Leg Left Rad iographic Imaging 01/12/2025 1:4 1 AM EDT Narrative 01/12/2025 1:43 AM EDT ? [facility] ?[address] ?[place] [address] ?XRay Report ? Signed ? Patient: Masood,Nathalie Machado ?MR#: M ?? [id number] ? : 1985 ?Acct:[id number] ? Age/Sex: 39 / F ?ADM Date: 04/08/25 ? Loc: HO.ED ? Attending Dr: ? Ordering Physician: Augusto Esparza MD ?? Date of Service: 01/12/25 ?? Procedure(s): XR tibia fibula LT 2V ?? Accession Number(s): [id number] ? cc: Augusto Esparza MD; Leandra Carbajal [...] DD/ 0141 ? TD/TT: 01/12/25 0141 ? Financial Administration Officer: ? Procedure Note Donmanuel, Image - 01/13/2025 [place] [address] XRay Report Signed Patient: Nathalie CorreiaR#: M [id number] : 1985Acct:[id number] Age/Sex: 39 / FADM Date: 01/11/25 Loc: HO.ED Attending Dr: Ordering Physician: Augusto Esparza MD Date of Service: 01/12/25 Procedure(s): XR tibia fibula LT 2V Accession Number(s): [id number] cc: Augusto Esparza MD; Leandra Carbajal MD [...] in OV> 01/12/25141 DD/ 0 TD/TT: 01/12/25140 Financial Administration Officer: [facility] External Provider IMG XR PROCEDURES Edited Result - Final * XR Sacrum Coccyx 2+ Views (01/12/2025 1:40 AM EDT) Anatomical Region Laterality Modality Sacrum, Coccyx Radiographic Stacey ging 01/12/2025 1:40 AM EDT Narrative 01/12/2025 1:42 AM EDT ? [facility] ?[address] ?[place] [address] ?XRay Report ? Signed ? Patient: Nathalie Correia ?MR#: M ?? [id number] ? : 1985 ?Acct:[id number] ? Age/Sex: 39 / F ?ADM Date: 01/11/25 ? Loc: HO.ED ? Attending Dr: ? Ordering Physician: Augusto Esparza MD ?? Date of Service: 01/12/25 ?? Procedure(s): XR sacrum coccyx min 2V ?? Accession Number(s): [id number] ? cc: Augusto Esparza MD; Leandra Carbajal [...] DD/ 0140 ? TD/TT: 01/12/25 0140 ? Financial Administration Officer: ? Procedure Note Mayr Oliva - 01/13/[address] [address] XRay Report Signed Patient: Nathalie Correia Sophia#: M [id number] : 1985Acct:[id number] Age/Sex: 39 / FADM Date: 01/11/25 Loc: HO.ED Attending Dr: Ordering Physician: Augusto Esparza MD Date of Service: 01/12/25 Procedure(s): XR sacrum coccyx min 2V Accession Number(s): [id number] cc: Augusto Esparza MD; Leandra Carbajal MD [...] in OV> 01/12/25140 DD/ 9 TD/TT: 01/12/25139 Financial Administration Officer: [facility] External Provider IMG XR PROCEDURES Edited Result - Final * XR Ankle 3+ Views Left (01/11/2025 10:03 PM EDT) Anatomical Region Laterality Modality Lower Extremities, Ankle Left Radiogr aphic Imaging 01/11/2025 10:0 3 PM EDT Narrative 01/11/2025 10:05 PM EDT ? [facility] ?[address] ?[place] [address] ?XRay Report ? Signed ? Patient: Nathalie Correia ?MR#: M ?? [id number] ? : 1985 ?Acct:[id number] ? Age/Sex: 39 / F ?ADM Date: 01/11/25 ? Loc: HO.ED ? Attending Dr: ? Ordering Physician: Generic ED Physician ?? Date of Service: 04/08/25 ?? Procedure(s): XR ankle LT min 3V ?? Accession Number(s): [id number] ? cc: Generic ED Physician; Leandra Carbajal [...] ? DD/ 02 ? TD/TT: 01/11/252202 ? Financial Administration Officer: ? Procedure Note Pj, Image - 01/13/2025 [place] [address] XRay Report Signed Patient: Nathalie CorreiaTXR#: M [id number] : 1985Acct:[id number] Age/Sex: 39 / FADM Date: 01/11/25 Loc: HO.ED Attending Dr: Ordering Physician: Generic ED Physician Date of Service: 01/11/25 Procedure(s): XR ankle LT min 3V Accession Number(s): [id number] cc: Generic ED Physician; Leandra Carbajal MD [...] in OV> 01/11/252203 DD/ 02 TD/TT: 01/11/252202 Financial Administration Officer: [facility] External Provider IMG XR PROCEDURES Edited Result - Final * HPV mRNA E6/E7 (10/16/2016 10:39 AM EST) HPV mRNA E6/E7 Not Detected NOT DETECTED [facility] Comment: This test was performed using the APTIMA(R) HPV Assay ([employer] This assay detects E6/E7 viral messenger RNA (mRNA) from 14 high-risk HPV types (16,18,31,33,35,39,45,51, 52,56,58,59,66,68). For additional information please refer to: http://education.[employer]/faq/KEW347r1 (This link is being provided for informational/ educational purposes only.) Test Performed by [employer] [place], [employer] [facility], [address] [place] [address] Levi Chairez M.D., Ph.D., Director of Laboratories , [facility] [id number] Please note: ??Effective 06/17/2016, HPV testing will be performed using [employer]'s APTIMA test which targets mRNA. Detecting mRNA instead of DNA, as in older methods, offers significant improvements in specificity. 10/16/2016 10:3 9 AM EST us Historical Provider HISTORICAL/NON ORDERABLE LABS Final Result [facility] [address] from Last 3 Months or Most Recently Relevant to Health Maintenance
--- OUTSIDE RECORDS SUMMARY | 2025-02-15 09:54 | XMS_ITS | Encounter Summary ---
Author Organization [facility] Address [address] [place] [address] Care Team Providers Care Licensed Architect Name Role Phone Martha Vidal MD Primary Care Pr ovid Reason for Referral * Consultation (Routine) - Authorized Specialty Diagnoses / Procedures Referred By Johann isaac Referred To Contact Genetics / Breast Surgery Diagnoses Family history of breast cancer Melissa Bains PA [address] [place] [address] Phone: tel: fax: Gillian Contreras MD [address] [place] [address] Phone: tel: fax: Referral ID Status Reason Start Date Expiration Date Visits Requested Visits Authorized [id number] Authorized Specialty Services Required 02/10/2025 02/10/2026 1 1 Reason for Visit * Reason Comments Annual Exam Vision: 2023, dental : 2023, 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, Tdap: 2022 Encounter Details Date Type Department Care Team (Late st Contact Info) Description 02/10/2025 12:30 PM EDT Office Visit Adult Medicine [address] [phone] Melissa Bains PA [address] [place] [address] Annual physical exam (Primary Dx); Screen for STD (sexually transmitted disease); Family history of breast cancer; Anemia due to vitamin B12 deficiency, unspecified B12 deficiency type; Anxiety and depression; Insomnia, unspecified type; Closed fracture of distal end of left fibula, unspecified fracture morphology, initial encounter; Primary hypertension; Chronic bilateral thoracic back pain; DJD (degenerative joint disease), thoracolumbar Social History Tobacco Use Types Packs/Day Years [...] on file documented as of this encounter Last Filed Vital Signs Vital Sign Reading Time Taken Comments Blood Pressure 126/88 02/10/2025 12:23 PM EDT Pulse 114 02/10/2025 12:23 PM EDT Temperature 36.1 ??C (97 ??F) 02/10/2025 12:23 PM EDT Respiratory Rate - - Oxygen Saturation 98% 02/10/2025 12:23 PM EDT Inhaled Oxygen Concentration - - Weight 72.6 kg (160 lb) 02/10/2025 12:23 PM EDT Height 157.5 cm (5' 2.01 ) 02/10/2025 12:23 PM E DT Body Mass Index 29.26 02/10/2025 12:23 PM EDT documented in this encounter Ordered Prescriptions Prescription Sig Dispense Quantity Refills Last Filled Start Date End Date hydrOXYzine HCL (ATARAX) 25 mg tablet Take 1 tablet (25 mg total) by mouth 2 (two) times a day if needed for anxiety. for anxiety 60 tablet 2 02/10/2025 escitalopram (LEXAPRO) 10 mg tablet Take 1.5 tablets (15 mg total) by mouth 1 (one) time each day. 135 tablet 1 02/10/2025 cyclobenzaprine (FLEXERIL) 10 mg tablet Take 1 tablet (10 mg total) by mouth at bedtime as needed for muscle spasms. 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 Requesting today Anxiety, depression, isomnia - on lexapro 10mg, hydroxyzine 25mg BID. Feels medication is helpful. Denies SI/HI. Has been under some stress recently, has been out of work and has been trying to get PFML due to recent left ankle surgery (underwent surgery 01/17/25 for left fibular fracture, repaired with plate and screws, Dr. Carmona through [facility], she is currently in cast, will be following up this month) HTN - BP today 126/88, not currently on medication Chronic thoracic, lumbar back pain - given flexeril 5mg qhs PRN at previous visit. She feels this has been helpful and is requesting refill, though wants to know if dose can be increased, will send 10mg dose ROS: GENERAL: No malaise or fever HEENT: No changes in hearing or vision NECK: No lumps, goiter, pain or significant neck swelling RESPIRATORY: No cough, wheezing or shortness of breath CARDIOVASCULAR: No chest pain, leg swelling or palpitations BREAST: no lumps, discharge, pain or change in skin GI: No abdominal discomfort, blood in stools or black stools : No dysuria, frequency or incontinence MARKETING SUPPORT ASSISTANT: No abnormal vaginal bleeding or abnormal vaginal discharge. MUSCULOSKELETAL: SEE HPI SKIN: No lesions, rash or itching PSYCH: No sleep disturbance, mood disorder HEMATOLOGY/LYMPHOLOGY No prolonged bleeding, easy bruisability or swollen nodes ENDOCRINE: No cold or heat intolerance, polyuria, polydipsia or goiter NEURO: No persistent headache, syncope, seizures, weakness PAST MEDICAL HISTORY: Patient Active Problem List Diagnosis Date Noted B12 deficiency anemia 06/17/2024 Hyperlipidemia 06/17/2024 Vitamin B12 deficiency disease 06/17/2024 DJD (degenerative joint disease), thoracolumbar 06/16/2024 Lumbar pain 06/16/2024 Anxiety and depression 02/11/2023 Primary hypertension 02/11/2023 Dermatitis 11/13/2022 Gastroesophageal reflux disease without esophagitis 11/13/2022 Insomnia 11/13/2022 Chronic bilateral thoracic back pain 09/03/2022 Obesity (BMI 30.0-34.9) 07/07/2022 IMMUNIZATIONS/INJECTIONS: Most Recent Immunizations Administered Date(s) Administered Influenza trivalent, 0.5mL, preservative free (Fluarix; FluLaval; Fluzone) ages 6mo and older (Afluria) 3 years and older 06/16/2024 MMR, measles mumps and rubella Live (Priorix; M-M-R II) 12mo and older 12/06/2024 Moderna SARS-CoV-2 COVID-19, mRNA, LNP-S, preservative free 01/29/2021 Tdap Tetanus diptheria acellular pertussis (Boostrix; Adacel) 7yo and older 11/13/2022 HEALTH MAINTENANCE: Health Maintenance Topic Date Due Hepatitis B Vaccines (1 of 3 - 19+ 3-dose series) Never done Hepatitis C Screening Never done COVID-19 Vaccine ( - 2023- season) 2024 Hypertension/CHF/CAD Annual BMP Blood Test 06/16/2025 Depression Screening 02/10/2026 Social Influencers of Health Screening 02/10/2026 Cervical Cancer Screening: HPV 09/02/2027 Cholesterol Screening (Lipid Panel) 06/16/2029 DTaP,Tdap,and Td Vaccines (3 - Td or Tdap) 11/13/2032 Influenza Vaccine Completed HIV Screening Completed HIB Vaccines Aged Out IPV Vaccines Aged Out Hepatitis A Vaccines Aged Out MMR Vaccines Aged Out Varicella Vaccines Aged Out Meningococcal ACWY Vaccine Aged Out Meningococcal B Vaccine Aged Out HPV Vaccines Aged Out Pneumococcal Vaccine: Pediatrics (0 to 5 Years) and At-Risk Patients (6 to 64 Years) Aged Out RSV Immunization Patients Under 20 months Aged Out SOCIAL HISTORY: Social History Tobacco Use Smoking status: Never Smokeless tobacco: Never Substance Use Topics Alcohol use: Yes FAMILY HISTORY: Family History Problem Relation Name Age of Onset Diabetes Mother Pancreatic cancer Maternal Grandmother Breast cancer Other Mat gr granmother Other (Other: skin cancer) Uncle maternal Colon cancer Neg Hx ACTIVE MEDICATIONS: Outpatient Medications Marked as Taking for the 02/10/25 encounter (Office Visit) with STUART Miller Medication Sig Dispense Refill escitalopram (LEXAPRO) 10 mg tablet Take 1.5 tablets (15 mg total) by mouth 1 (one) time each day. 135 tablet 1 hydrOXYzine HCL (ATARAX) 25 mg tablet Take 1 tablet (25 mg total) by mouth 2 (two) times a day if needed for anxiety. for anxiety 60 tablet 2 [DISCONTINUED] cyclobenzaprine (FLEXERIL) 5 mg tablet Take 1 tablet (5 mg total) by mouth at bedtime. at bedtime. 90 tablet 0 [DISCONTINUED] escitalopram (LEXAPRO) 10 mg tablet Take 1 tablet (10 mg total) by mouth 1 (one) time each day. 90 tablet 1 [DISCONTINUED] hydrOXYzine HCL (ATARAX) 25 mg tablet Take 1 tablet (25 mg total) by mouth at bedtime as needed for anxiety. for anxiety 90 tablet 1 Current Facility-Administered Medications for the 02/10/25 encounter (Office Visit) with STUART Miller Medication Dose Route Frequency Provider Last Rate Last Admin cyanocobalamin (VITAMIN B-12) injection 1,000 mcg 1,000 mcg intramuscular q30 days Martha Vidal MD 1,000 mcg at 11/24/24 1611 [COMPLETED] cyanocobalamin (VITAMIN B-12) injection 1,000 mcg 1,000 mcg intramuscular q30 days STUART Miller 1,000 mcg at 02/10/25 1312 ALLERGIES: No Known Allergies PHYSICAL EXAM: Visit Vitals BP 126/88 (BP Location: Left arm, Patient Position: Sitting, BP Cuff Size: Adult) Pulse (!) 114 Temp 36.1 ??C (97 ??F) (Temporal) Ht 1.575 m (62.01 ) Wt 72.6 kg (160 lb) LMP 01/19/2025 SpO2 98% BMI 29.26 kg/m?? Smoking Status Never BSA 1.74 m?? APPEARANCE: Alert and in no acute distress EYES: PERRLA, conjunctiva and sclera normal. EARS: External ears normal. Canals clear. TMs normal. THROAT: no erythema or exudates NECK: Neck supple, no adenopathy, thyroid symmetric and of normal size HEART: RRR with normal S1 and S2 LUNG: clear to auscultation BREAST (FEMALE): Deferred to semiconductor packages sealer ABDOMEN: Bowel sounds normoactive, no bruits, soft, non-tender, without organomegaly or palpable masses MARKETING SUPPORT ASSISTANT (FEMALE): Deferred to semiconductor packages sealer BACK: No pain to palpation with good flexion and extension EXTREMITIES: Extremities warm and well perfused without clubbing, cyanosis, or edema NEURO: Awake, alert and oriented x 3 SKIN: Skin color, texture, turgor normal LABS/IMAGING: Lab Results Component Value Date CHOL 206 (A) 06/16/2024 LDL 99 06/16/2024 HDL 45 06/16/2024 TRIG 312 (A) 06/16/2024 IMPRESSION: 1. Annual physical exam 2. Screen for STD (sexually transmitted disease) 3. Family history of breast cancer 4. Anemia due to vitamin B12 deficiency, unspecified B12 deficiency type 5. Anxiety and depression 6. Insomnia, unspecified type 7. Closed fracture of distal end of left fibula, unspecified fracture morphology, initial encounter 8. Primary hypertension 9. Gastroesophageal reflux disease without esophagitis 10. Chronic bilateral thoracic back pain 11. DJD (degenerative joint disease), thoracolumbar PLAN: 1. Health maintenance: The patient presented for an evaluation of general health. As part of this visit, we reviewed the following issues, which are considered an essential part of preventative health in this age group: - Breast cancer screening for high risk individuals - mammogram not warranted - Cervical cancer testing every 1-3 years - patient is up-to-date - Blood pressure annual screening performed - Cholesterol screening every five years - ordered - Osteoporosis prevention including calcium/vitamin D intake, weight bearing exercise & smokingcessation - Nutritional and exercise counseling - patient advised to pursue at least 30 minutes of exercise most days of the week - Counseling of injury prevention including fire prevention, smoke alarms and seat belt usage - Screening for depression - using the PHQ-9 - One time hepatitis C screening in all adults - Recommendations about immunizations - patient is up-to-date on immunizations - Recommendation of an eye exam for glaucoma once in this age range - patient will self-refer - Screening for substance abuse (including tobacco, alcohol, and recreational drugs) - see Substance & Sexuality section of medical record - Genetic cancer risk screening - REFERRAL PLACED: Hereditary Cancer Syndrome Risk Assessment completed at visit. Cancer risk assessment suggests possibility of inherited cancer syndrome on the basis of BREAST cancer diagnosed at 45 YEARS OR YOUNGER in the patient or any family members. The patient was counseled on cancer risk, and it was recommended the patient be referred for further evaluation. - In addition to reviewing these issues, I have reviewed the following sections of the chart: Past Medical History, Social History, and Social History Anxiety, depression, insomnia - has been under some stress recently (see HPI) and feeling down, denies SI/HI. Will increase Lexapro 15mg daily, continue hydroxyzine 25mg BID PRN. Will plan for follow-up in ~6 weeks or sooner if needed Fibular fracture - follow-up with Orthopedics as directed HTN - BP controlled, will continue to monitor Back pain - Flexeril 10mg sent to be used nightly PRN Patient verbalized understanding and is in agreement with plan ADDITIONAL ORDERS: Orders Placed This Encounter Procedures Chlamydia trachomatis and Neisseria gonorrhoeae molecular study CBC and differential Comprehensive metabolic panel Lipid panel with reflex to direct LDL Hemoglobin A1c Treponema pallidum antibody with reflex to RPR and particle agglutination HIV 1,2 antibody, p24 antigen with reflex to differentiation Hepatitis C antibody Ambulatory referral to Genetics AMB REFERRAL TO GENETICS Today's documentation was made using voice recognition software.This note may contain grammatical errors secondary to this software. STUART Miller on 02/10/2025 at 4:23 PM EDT documented in this encounter Plan of Treatment Upcoming Encounters Date Type Department Care Team (Late st Contact Info) Description 03/25/2025 9:00 AM EDT Office Visit [address] [phone] Melissa Bains PA [address] [place] [id number] Scheduled Referrals Name Type Priority Associated Diagnoses Order Schedule Ambulatory referral to Genetics Outpatient Referral Routine Family history of breast cancer 1 Occurrences starting 02/10/2025 until 02/10/2026 documented as of this encounter Results * Chlamydia trachomatis and Neisseria gonorrhoeae molecular study (02/10/2025 1:13 PM EDT) [facility] Neisseria gonorrhoeae PCR Negative Negative LAB MOLECULAR DIAGNOSTICS METHOD 02/11/2025 10:42 AM EDT [facility] Chlamydia trachomatis PCR Negative Negative LAB MOLECULAR DIAGNOSTICS METHOD 02/11/2025 10:42 AM EDT [facility] Urine First stream urine specimen / Unknown Non-blood Collection / Unknown 02/10/2025 1:13 PM EDT 02/10/2025 1:13 PM EDT us Melissa DAVIDSON LAB MICROBIOLOGY - GENERAL OR DERABLES Final Result Performing Organization Address [facility]/ZIP Co de Phone Number [facility] [address] [place] [address], [place] [phone] * Hepatitis C antibody (02/10/2025 1:13 PM EDT) [facility] Hepatitis C Antibody Negative Negative LAB CHEMISTRY METHOD 02/10/2025 7:29 PM EDT [facility] Blood Venous blood specimen / Unknown Venipuncture / Unknown 02/10/2025 1:13 PM EDT 02/10/2025 1:13 PM EDT us Melissa DAVIDSON LAB BLOOD ORDERABLES Final Re sult [facility] [address] [place] [address], [place] [phone] * HIV 1,2 antibody, p24 antigen with reflex to differentiation (02/10/2025 1:13 PM EDT) [facility] HIV Combo AB/AG Negative Negative LAB CHEMISTRY METHOD 02/10/2025 7:30 PM EDT [facility] Blood Venous blood specimen / Unknown Venipuncture / Unknown 02/10/2025 1:13 PM EDT 02/10/2025 1:13 PM EDT Narrative [facility] - 02/10/2025 7:30 PM EDT This assay is a 4th generation assay allowing for earlier detection of HIV infection by detecting the presence of the HIV-1 p24 antigen as well as the traditional antibodies to HIV type 1 (including group O) and type 2. ??Use of a 4th generation assay is the current CDC recommendation for HIV screening. us Melissa DAVIDSON LAB BLOOD ORDERABLES Final Re sult Performing Organization Address [facility]/ZIP Co de Phone Number [facility] [address] [place] [address], [place] [phone] * Treponema pallidum antibody with reflex to RPR and particle agglutination (02/10/2025 1:13 PM EDT) T. Pallidum Antibodies Negative Negative LAB CHEMISTRY METHOD 02/10/2025 7:01 PM EDT [facility] Blood Venous blood specimen / Unknown Venipuncture / Unknown 02/10/2025 1:13 PM EDT 02/10/2025 1:13 PM EDT us Melissa DAVIDSON LAB BLOOD ORDERABLES Final Re sult Performing Organization Address [facility]/ZIP Co de Phone Number [facility] [address] [place] [address], [place] [phone] * Hemoglobin A1c (02/10/2025 1:13 PM EDT) Hemoglobin A1C 5.3 <6.5 % LAB CHEMISTRY METHOD 02/10/2025 10:15 PM EDT [facility] Mean Bld Glu Estim. 105 mg/dL LAB CHEMISTRY METHOD 02/10/2025 10:15 PM EDT [facility] Blood Venous blood specimen / Unknown Venipuncture / Unknown 02/10/2025 1:13 PM EDT 02/10/2025 1:13 PM EDT us Melissa DAVIDSON LAB BLOOD ORDERABLES Final Re sult [facility] [address] [place] [address], [place] [phone] * (ABNORMAL) Lipid panel with reflex to direct LDL (02/10/2025 1:13 PM EDT) Cholesterol 249(H) 0 - 200 mg/dL LAB CHEMISTRY METHOD 02/10/2025 5:49 PM EDT [facility] Triglycerides 336(H) 0 - 150 mg/dL LAB CHEMISTRY METHOD 02/10/2025 5:49 PM EDT [facility] HDL 44 >=40 mg/dL LAB CHEMISTRY METHOD 02/10/2025 5:49 PM EDT [facility] LDL Calculated 138(H) 0 - 100 mg/dL LAB CHEMISTRY METHOD 02/10/2025 5:49 PM EDT [facility] VLDL Cholesterol Nas 67.2 mg/dL LAB CHEMISTRY METHOD 02/10/2025 5:49 PM EDT [facility] Non HDL Chol. (LDL+VLDL) 205(H) <145 mg/dL LAB CHEMISTRY METHOD 02/10/2025 5:49 PM EDT [facility] Chol/HDL Ratio 5.7(H) 0.0 - 4.4 LAB CHEMISTRY METHOD 02/10/2025 5:49 PM EDT [facility] Blood Venous blood specimen / Unknown Venipuncture / Unknown 02/10/2025 1:13 PM EDT 02/10/2025 1:13 PM EDT us Melissa DAVIDSON LAB BLOOD ORDERABLES Final Re sult [facility] [address] [place] [address], * Comprehensive metabolic panel (02/10/2025 1:13 PM EDT) Sodium 139 133 - 145 mmol/L LAB CHEMISTRY METHOD 02/10/2025 5:49 PM [facility] Potassium 4.2 3.5 - 5.5 mmol/L LAB CHEMISTRY METHOD 02/10/2025 5:49 PM [facility] Chloride 106 96 - 110 mmol/L LAB CHEMISTRY METHOD 02/10/2025 5:49 PM [facility] CO2 25 21 - 32 mmol/L LAB CHEMISTRY METHOD 02/10/2025 5:49 PM [facility] Anion Gap 8 3 - 11 LAB CHEMISTRY METHOD 02/10/2025 5:49 PM [facility] Glucose 81 70 - 100 mg/dL LAB CHEMISTRY METHOD 02/10/2025 5:49 PM [facility] BUN 10 5 - 25 mg/dL LAB CHEMISTRY METHOD 02/10/2025 5:49 PM [facility] Creatinine 0.86 0.50 - 1.10 mg/dL LAB CHEMISTRY METHOD 02/10/2025 5:49 PM [facility] eGFR 89 >=60 mL/min/1. 73m2 LAB CHEMISTRY METHOD 02/10/2025 5:49 PM [facility] Comment:Calculation based on the Chronic Kidney Disease Epidemiology Collaboration (CKD-EPI) equation refit without adjustment for race. BUN/Creatinine Ratio 11.6 LAB CHEMISTRY METHOD 02/10/2025 5:49 PM [facility] Calcium 9.7 8.5 - 10.5 mg/dL LAB CHEMISTRY METHOD 02/10/2025 5:49 PM [facility] AST (SGOT) 19 10 - 42 unit/L LAB CHEMISTRY METHOD 02/10/2025 5:49 PM [facility] ALT (SGPT) 28 10 - 60 unit/L LAB CHEMISTRY METHOD 02/10/2025 5:49 PM EDT [facility] Alkaline Phosphatase 69 42 - 121 unit/L LAB CHEMISTRY METHOD 02/10/2025 5:49 PM EDT [facility] Total Protein 8.0 6.0 - 8.0 g/dL LAB CHEMISTRY METHOD 02/10/2025 5:49 PM EDT [facility] Albumin 4.2 3.2 - 5.0 g/dL LAB CHEMISTRY METHOD 02/10/2025 5:49 PM EDT [facility] Total Bilirubin 0.5 0.0 - 1.4 mg/dL LAB CHEMISTRY METHOD 02/10/2025 5:49 PM EDT [facility] Blood Venous blood specimen / Unknown Venipuncture / Unknown 02/10/2025 1:13 PM EDT 02/10/2025 1:13 PM EDT us Melissa DAVIDSON LAB BLOOD ORDERABLES Final Re sult [facility] [address] [place] [address], documented in this encounter Visit Diagnoses Diagnosis Annual physical exam- Primary Routine general medical examination at a health care facility Screen for STD (sexually transmitted disease) Screening examination for venereal disease Family history of breast cancer Family history of malignant neoplasm of breast Anemia due to vitamin B12 deficiency, unspecified B12 deficiency type Anxiety and depression Insomnia, unspecified type Closed fracture of distal end of left fibula, unspecified fracture morphology, initial encounter Primary hypertension Unspecified essential hypertension Chronic bilateral thoracic back pain DJD (degenerative joint disease), 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 documented in this encounter Administered Medications Inactive Administered Medications - up to 3 most recent administrations Medication Order MAR Action Action Date Dose Rate Site cyanocobalamin (VITAMIN B-12) injection 1,000 mcg 1,000 mcg, intramuscular, Every 30 days, First dose on Gregoria 02/10/25 at 1315, For 1 doseIndications:Anemia due to vitamin B12 deficiency, unspecified B12 deficiency type Given 02/10/2025 1:12 PM EDT 1,000 mcg Right Deltoid documented in this encounter Discontinued Medications Medication Sig Discontinue Reason Start Date End Da te pantoprazole (PROTONIX) 20 mg EC tablet Take 1 Tablet by mouth daily. 06/16/2024 02/10/2025 IBUPROFEN ORAL Take by mouth. 02/10/2025 cyclobenzaprine (FLEXERIL) 5 mg tablet Take 1 tablet (5 mg total) by mouth at bedtime. at bedtime. 01/05/2025 02/10/2025 escitalopram (LEXAPRO) 10 mg tablet Take 1 tablet (10 mg total) by mouth 1 (one) time each day. Reorder 10/07/2024 02/10/2025 hydrOXYzine HCL (ATARAX) 25 mg tablet Take 1 tablet (25 mg total) by mouth at bedtime as needed for anxiety. for anxiety Reorder 01/05/2025 02/10/2025 documented as of this encounter Care Teams Licensed Architect Relationship Specialty Start Date End Date Martha Vidal MD [address] [facility] [place] [address] PCP - General Internal Medicine 05/02/22 documented as of this encounter
--- OUTSIDE RECORDS SUMMARY | 2025-02-15 09:54 | XMS_ITS | Encounter Summary ---
Author Organization [employer] [facility] Address [address] [place] [address] Care Team Providers Care Live Out Nanny Name Role Phone Unavailable Primary Care Provider Unavailabl e Encounter Details Date Type Department Care Team (Latest Contact Info) Description 02/05/2022 Abstract C CONVERSIONS Dental, Provider, DDS Social History Tobacco Use Types Packs/Day Years Used Date Smoking Tobacco: Never Assessed Comments Unknown Sex and Gender Information Value Date Recorded Sex Assigned at Female 08/05/2022 10:19 AM EDT Legal Sex Female 10:19 AM EDT Gender Identity Choose not to disclose 2 10:19 AM EDT Sexual Orientation Choose not to disclose 2021 10:19 AM EDT documented as of this encounter Plan of Treatment Not on file documented as of this encounter Visit Diagnoses Not on filedocumented in this encounter
== END 2025-02-15 10:09 | disposition home or self-care (01) ==
LOC: HO.HOS 09:22
DX: S82.832A Other fracture of upper and lower end of left fibula, initial encounter for closed fracture (principal)
CPT/HCPCS: 29405; 99024

== ENCOUNTER → 2025-02-15 09:21 | Outpatient (BNVA) | payer OTHER, SELFPAY | DX: S82.832D Other fracture of upper and lower end of left fibula, subsequent encounter for closed fracture with routine healing (principal) | CPT/HCPCS: 29405 ==

== ENCOUNTER 2025-03-01 09:01 | Outpatient (REF) | payer OTHER, SELFPAY ==
--- NOTE | ~2025-03-01 | XR_ITS ---
EXAMINATION: XR ANKLE, LEFT CLINICAL INFORMATION: M25.572 - Pain in left ankle and joints of left foot COMPARISON: 01/31/2025, 01/11/2025. TECHNIQUE: AP, lateral, and mortise views of the left ankle. FINDINGS: Lateral plate and screw fixation of the distal fibula. Hardware appears intact and well seated. Fracture lines are still visible although appears slightly less distinct, indicating probable healing. Small avulsion fracture likely arising from the tip of the lateral malleolus. Mortise is intact. Talar dome is normal. Soft tissue swelling is slightly improved. XR/XR ankle LT min 3V IMPRESSION: Fixated distal fibular fracture is stable anatomic alignment, without evidence of early healing. Electronically signed by: Antonio Box MD 03/01/2025 01:05 PM EDT
--- OUTSIDE RECORDS SUMMARY | 2025-03-02 09:31 | XMS_ITS | Clinical Summary ---
Author Organization [employer] Address [address] [place] [address] Care Team Providers Care Investment Manager Name Role Phone Unavailable Primary Care Provider Unavailabl e Encounters Date Type Department Care Team Description 01/11/2025 Orders Only [facility] External Provider, [facility] from Last 3 Months Social History [...] EDT Narrative 01/12/2025 1:43 AM EDT ? [facility] ?[address] ?[place] [address] ?XRay Report ? Signed ? Patient: Correia,Nathaliedania Machado ?MR#: M ?? [id number] ? : 1985 ?Acct:[id number] ? Age/Sex: 39 / F ?ADM Date: 04/08/25 ? Loc: HO.ED ? Attending Dr: ? Ordering Physician: Augusto Esparza MD ?? Date of Service: 01/12/25 ?? Procedure(s): XR tibia fibula LT 2V ?? Accession Number(s): [id number] ? cc: Augusto Esparza MD; Leandra Carbajal [...] DD/ 0141 ? TD/TT: 01/12/25 0141 ? Scheduling Agent: ? Procedure Note Mary Oliva - 01/13/[address] [address] XRay Report Signed Patient: Nathalie CorreiaCTR#: M [id number] : 1985Acct:[id number] Age/Sex: 39 / FADM Date: 01/11/25 Loc: .ED Attending Dr: Ordering Physician: Augusto Esparza MD Date of Service: 01/12/25 Procedure(s): XR tibia fibula LT 2V Accession Number(s): [id number] cc: Augusto Esparza MD; Leandra Carbajal MD [...] in OV> 01/12/25141 DD/ 0 TD/TT: 01/12/25140 Scheduling Agent: [facility] External Provider IMG XR PROCEDURES Edited Result - Final * XR Sacrum Coccyx 2+ Views (01/12/2025 1:40 AM EDT) Anatomical Region Laterality Modality Sacrum, Coccyx Radiographic Stacey ging 01/12/2025 1:40 AM EDT Narrative 01/12/2025 1:42 AM EDT ? [facility] ?[address] ?[place] [address] ?XRay Report ? Signed ? Patient: MasoodNathaliedania Machado ?MR#: M ?? [id number] ? : 1985 ?Acct:[id number] ? Age/Sex: 39 / F ?ADM Date: 01/11/25 ? Loc: HO.ED ? Attending Dr: ? Ordering Physician: Augusto Esparza MD ?? Date of Service: 01/12/25 ?? Procedure(s): XR sacrum coccyx min 2V ?? Accession Number(s): [id number] ? cc: Augusto Esparza MD; Leandra Carbajal [...] DD/ 0140 ? TD/TT: 01/12/25 0140 ? Scheduling Agent: ? Procedure Note Mary Oliva - 01/13/2025 [address] [place] [address] XRay Report Signed Patient: Nathalie Correia#: M [id number] : 1985Acct:[id number] Age/Sex: 39 / FADM Date: 01/11/25 Loc: HO.ED Attending Dr: Ordering Physician: Augusto Esparza MD Date of Service: 01/12/25 Procedure(s): XR sacrum coccyx min 2V Accession Number(s): [id number] cc: Augusto Esparza MD; Leandra Carbajal MD [...] OV> 01/12/25 014 DD/ 9 TD/TT: 01/12/25139 Scheduling Agent: [facility] External Provider IMG XR PROCEDURES Edited Result - Final * XR Ankle 3+ Views Left (01/11/2025 10:03 PM EDT) Anatomical Region Laterality Modality Lower Extremities, Ankle Left Radiogr aphic Imaging 01/11/2025 10:0 3 PM EDT Narrative 01/11/2025 10:05 PM EDT ? [facility] ?[address] ?[place] [address] ?XRay Report ? Signed ? Patient: Correia,Nathalie Carter ?MR#: M ?? [id number] ? : 1985 ?Acct:[id number] ? Age/Sex: 39 / F ?ADM Date: 04/08/25 ? Loc: HO.ED ? Attending Dr: ? Ordering Physician: Generic ED Physician ?? Date of Service: 01/11/25 ?? Procedure(s): XR ankle LT min 3V ?? Accession Number(s): [id number] ? cc: Generic ED Physician; Leandra Carbajal [...] ? DD/ 02 ? TD/TT: 01/11/252202 ? Scheduling Agent: ? Procedure Note Donmargarethter, Image - 01/13/2025 [address] [address] XRay Report Signed Patient: Nathalie CorreianMR#: M [id number] : 1985Acct:[id number] Age/Sex: 39 / FADM Date: 01/11/25 Loc: HO.ED Attending Dr: Ordering Physician: Generic ED Physician Date of Service: 01/11/25 Procedure(s): XR ankle LT min 3V Accession Number(s): [id number] cc: Generic ED Physician; Leandra Carbajal MD [...] in OV> 01/11/252203 DD/ 02 TD/TT: 01/11/252202 Scheduling Agent: [facility] External Provider IMG XR PROCEDURES Edited Result - Final * HPV mRNA E6/E7 (10/16/2016 10:39 AM EST) HPV mRNA E6/E7 Not Detected NOT DETECTED [facility] Comment: This test was performed using the APTIMA(R) HPV Assay ([employer] This assay detects E6/E7 viral messenger RNA (mRNA) from 14 high-risk HPV types (16,18,31,33,35,39,45,51, 52,56,58,59,66,68). For additional information please refer to: http://education.AdScoot/faq/WLA365v8 (This link is being provided for informational/ educational purposes only.) Test Performed by Celsa Pendleton, [facility], [address] [place] [id number] Levi Chairez M.D., Ph.D., Director of Laboratories , [facility] [id number] Please note: ??Effective 06/17/2016, HPV testing will be performed using [employer]'s APTIMA test which targets mRNA. Detecting mRNA instead of DNA, as in older methods, offers significant improvements in specificity. 10/16/2016 10:3 9 AM EST us Historical Provider HISTORICAL/NON ORDERABLE LABS Final Result [facility] [address] from Last 3 Months or Most Recently Relevant to Health Maintenance
== END 2025-03-01 09:02 | disposition home or self-care (01) ==
LOC: HO.HOSX 09:01
DX: M25.572 Pain in left ankle and joints of left foot (principal)
CPT/HCPCS: 73610

== ENCOUNTER 2025-03-01 10:15 | Outpatient (AMB) | payer OTHER, SELFPAY ==
--- NOTE | 2025-03-01 10:18 | MHC.OFFVIS ---
Intake Visit Reasons: PO: Lt Ankle ORIF 01/18/25 NE Intake Note: Nathalie is a 39 year old female who presents today post operative s/p ORIF of left lateral malleolus DOS: 01/20/[address] Hermann Carmona. Patient reports she is having some numbness on the anterior aspect of the left foot. States she did weight bear at home. Reports of she weights on her leg too much to has to raise it to relieve some discomfort. States she feels warmness occasionally in the left foot so she tries to keep the foot up at rest. Tylenol as needed relieves her discomfort. Allergies No Known Allergies Allergy (Verified 03/01/25 10:33) HPI HPI PO: Lt Ankle ORIF 01/18/25 NE: Details: Nathalie is a 39 year old female who presents today post operative s/p ORIF of left lateral malleolus DOS: 01/20/[address] Hermann Carmona. Patient reports she is having some numbness on the anterior aspect of the left foot. States she did weight bear at home, reports only with ?short distances?. Reports of she weights on her leg too much to has to raise it to relieve some discomfort. States she feels warmness occasionally in the left foot so she tries to keep the foot up at rest. Tylenol as needed relieves her discomfort. [facility] Medical History Marijuana use GERD (gastroesophageal reflux disease) Anxiety Depression Surgical History No pertinent past surgical history Social History Patient Tobacco Use Status: Never used Tobacco Current occupational status: employed Current occupation: [employer] Review of Systems Const All systems reviewed & are unremarkable except as noted in HPI and below Physical Exam Const General: cooperative, healthy appearing, comfortable, no acute distress, well developed and alert Orientation/consciousness: patient oriented x3 HEENT Head: Yes normal to inspection, Yes normocephalic and Yes atraumatic Eyes General: appearance normal, both eyes and all related structures Neck Neck: Yes normal visual inspection and Yes no lymphadenopathy Resp Effort & Inspection: normal respiratory effort and able to speak in complete sentences Cardio Rate: regular rate Peripheral pulses: Peripheral pulses 2+ throughout GI Inspection: Yes normal to inspection Palpation (GI): Soft to palpation Skin General skin exam: no rashes or lesions noted Neuro General: patient oriented x3 Extrem Other: Left ankle is no longer edematous and ecchymotic to inspection. She has very improved swelling throughout the foot and ankle, improved from previous evaluation. There is a well approximated and well healing incision noted on the lateral aspect of the left ankle, no drainage at this time. There is a small area that does not appear to have full skin coverage at the most distal part of the incision, however there is good soft tissue coverage with no active drainage at this time. Distal sensation intact Capillary refill brisk Psych Appearance: grossly normal Mental Status: mental status grossly normal Results Reviewed Results Reviewed: X-rays obtained in the office today and independently reviewed by me, Polo Cisneros PA-C, demonstrate surgically reduced fracture of the distal fibula of the left ankle with all orthopedic hardware in place, in satisfactory clinical alignment, and with evidence of early interval bony healing. Assessment & Plan Assessment & Plan (1) Closed fracture of left distal fibula: Code(s): S82.832A - Other fracture of upper and lower end of left fibula, initial encounter for closed fracture Category: Medical Plan 1. Status post ORIF of left fibula DOS 01/18/2025 Patient appears to be recovering well postoperatively Patient is educated about the typical recovery course At this time, cast removed Patient is a fit for a tall walking boot Patient may weightbear as tolerated in boot, is not to weight bear at all while out of boot Patient can return to work on a light duty basis, no excessive stairs or walking, and must be able to sit and take breaks Small dressing placed on distal aspect of the incision due to area that does not appear to have full skin coverage Daily dressing changes until area appears closed To elevate as much as possible Follow-up in 6 weeks with repeat x-rays, sooner with any acute concerns Orders: Orders XR ankle LT min 3V Today M25.572 - Pain in left ankle and joints of left foot Coding Level of Care Code Global (98307) Diagnoses Closed fracture of left distal fibula S82.832A
--- OUTSIDE RECORDS SUMMARY | 2025-03-01 10:59 | XMS_ITS | Clinical Summary ---
Author Organization [employer] Address [address] [place] [address] Care Team Providers Care Radiation Oncologist Name Role Phone Unavailable Primary Care Provider Unavailabl e Encounters Date Type Department Care Team Description 01/11/2025 Orders Only [facility] External Provider, [facility] from Last 3 Months Social History [...] Date Last Done Comments Depression Screening 1987 Disability Screening 1987 Alcohol/Substance Use Screening 1999 Tobacco [...] VIEWS LEFT Routine 01/11/2025 10:03 PM EDT [facility] HISTORICAL HPV MRNA E6/E7 Routine 10/16/2016 10:39 AM EST from Last 3 Months or Most Recently Relevant to Health Maintenance Results * XR Tibia Fibula 2 Views Left (01/12/2025 1:41 AM EDT) Anatomical Region Laterality Modality Lower Extremities, Lower Leg Left Rad iographic Imaging 01/12/2025 1:41 AM EDT Narrative 01/12/2025 1:43 AM EDT ? [facility] ?[address] ?[place] [address] ?XRay Report ? Signed ? Patient: Correia,Nathaliedania Machado ?MR#: M ?? [id number] ? : 1985 ?Acct:[id number] ? Age/Sex: 39 / F ?ADM Date: 04/08/25 ? Loc: HO.ED ? Attending Dr: ? Ordering Physician: Augusto Esparza MD ?? Date of Service: 01/12/25 ?? Procedure(s): XR tibia fibula LT 2V ?? Accession Number(s): [id number] ? cc: Augusto Esparza MD; Leandra Carbajal [...] DD/ 0141 ? TD/TT: 01/12/25 0141 ? Threshing Machine Operator: ? Procedure Note Mary Oliva - 01/13/[address] [address] XRay Report Signed Patient: Nathalie CorreiaNHR#: M [id number] : 1985Acct:[id number] Age/Sex: 39 / FADM Date: 01/11/25 Loc: .ED Attending Dr: Ordering Physician: Augusto Esparza MD Date of Service: 01/12/25 Procedure(s): XR tibia fibula LT 2V Accession Number(s): [id number] cc: Augusto Esparza MD; Leandra Carbajal MD [...] in OV> 01/12/25141 DD/ 0 TD/TT: 01/12/25140 Threshing Machine Operator: [facility] External Provider IMG XR PROCEDURES Edited Result - Final * XR Sacrum Coccyx 2+ Views (01/12/2025 1:40 AM EDT) Anatomical Region Laterality Modality Sacrum, Coccyx Radiographic Stacey ging 01/12/2025 1:40 AM EDT Narrative 01/12/2025 1:42 AM EDT ? [facility] ?[address] ?[place] [address] ?XRay Report ? Signed ? Patient: MaosodNathaliedania Machado ?MR#: M ?? [id number] ? : 1985 ?Acct:[id number] ? Age/Sex: 39 / F ?ADM Date: 01/11/25 ? Loc: HO.ED ? Attending Dr: ? Ordering Physician: Augusto Esparza MD ?? Date of Service: 01/12/25 ?? Procedure(s): XR sacrum coccyx min 2V ?? Accession Number(s): [id number] ? cc: Augusto Esparza MD; Leandra Carbajal [...] DD/ 0140 ? TD/TT: 01/12/25 0140 ? Threshing Machine Operator: ? Procedure Note Mary Oliva - 01/13/2025 [address] [place] [address] XRay Report Signed Patient: Nathalie Correia#: M [id number] : 1985Acct:[id number] Age/Sex: 39 / FADM Date: 01/11/25 Loc: HO.ED Attending Dr: Ordering Physician: Augusto Esparza MD Date of Service: 01/12/25 Procedure(s): XR sacrum coccyx min 2V Accession Number(s): [id number] cc: Augusto Esparza MD; Leandra Carbajal MD CLINICAL HISTORY: trauma 4 views sacrum and coccyx Comparison: None Findings No acute fractures. No significant degenerative change. No erosions. IMPRESSION: No acute findings This document has been electronically signed by: Elian Preciado MD on 01/12/2025 01:40:50 Dictated By: Elian Preciado MD Signed By: <Electronically signed by Elian Preciado MD in OV> 01/12/25 014 DD/ 9 TD/TT: 01/12/25139 Threshing Machine Operator: [facility] External Provider IMG XR PROCEDURES Edited Result - Final * XR Ankle 3+ Views Left (01/11/2025 10:03 PM EDT) Anatomical Region Laterality Modality Lower Extremities, Ankle Left Radiogr aphic Imaging 01/11/2025 10:0 3 PM EDT Narrative 01/11/2025 10:05 PM EDT ? [facility] ?[address] ?[place] [address] ?XRay Report ? Signed ? Patient: Coreria,Nathalie Carter ?MR#: M ?? [id number] ? : 1985 ?Acct:[id number] ? Age/Sex: 39 / F ?ADM Date: 04/08/25 ? Loc: HO.ED ? Attending Dr: ? Ordering Physician: Generic ED Physician ?? Date of Service: 01/11/25 ?? Procedure(s): XR ankle LT min 3V ?? Accession Number(s): [id number] ? cc: Generic ED Physician; Leandra Carbajal [...] ? DD/ 02 ? TD/TT: 01/11/252202 ? Threshing Machine Operator: ? Procedure Note Donmargarethter, Image - 01/13/2025 [address] [address] XRay Report Signed Patient: Nathalie CorreianMR#: M [id number] : 1985Acct:[id number] Age/Sex: 39 / FADM Date: 01/11/25 Loc: HO.ED Attending Dr: Ordering Physician: Generic ED Physician Date of Service: 01/11/25 Procedure(s): XR ankle LT min 3V Accession Number(s): [id number] cc: Generic ED Physician; Leandra Carbajal MD [...] in OV> 01/11/252203 DD/ 02 TD/TT: 01/11/252202 Threshing Machine Operator: [facility] External Provider IMG XR PROCEDURES Edited Result - Final * HPV mRNA E6/E7 (10/16/2016 10:39 AM EST) HPV mRNA E6/E7 Not Detected NOT DETECTED [facility] Comment: This test was performed using the APTIMA(R) HPV Assay ([employer] This assay detects E6/E7 viral messenger RNA (mRNA) from 14 high-risk HPV types (16,18,31,33,35,39,45,51, 52,56,58,59,66,68). For additional information please refer to: http://education.Cloud.CM/faq/TAB193g0 (This link is being provided for informational/ educational purposes only.) Test Performed by Cesla Pendleton, [facility], [address] [place] [id number] Levi Chairez M.D., Ph.D., Director of Laboratories , [facility] [id number] Please note: ??Effective 06/17/2016, HPV testing will be performed using [employer]'s APTIMA test which targets mRNA. Detecting mRNA instead of DNA, as in older methods, offers significant improvements in specificity. 10/16/2016 10:3 9 AM EST us Historical Provider HISTORICAL/NON ORDERABLE LABS Final Result [facility] [address] from Last 3 Months or Most Recently Relevant to Health Maintenance
== END 2025-03-01 11:30 | disposition home or self-care (01) ==
LOC: HO.HOS 10:15
PROVIDERS: PCP Student in an Organized Health Care Education/Training Program
DX: S82.832A Other fracture of upper and lower end of left fibula, initial encounter for closed fracture (principal)
CPT/HCPCS: 99024

== ENCOUNTER → 2025-03-01 10:16 | Outpatient (BNV) | payer OTHER, SELFPAY | PROVIDERS: Visit Provider Radiology Diagnostic Radiology | DX: M25.572 Pain in left ankle and joints of left foot (principal) | CPT/HCPCS: 73610 ==

== ENCOUNTER 2025-03-16 09:32 | Outpatient (REF) | payer OTHER, SELFPAY ==
--- NOTE | ~2025-03-16 | XR_ITS ---
EXAMINATION: XR ANKLE 3 OR MORE VIEWS LEFT HISTORY: M25.572 - Pain in left ankle and joints of left foot COMPARISON: Comparison is made with the prior examination dated 03/01/2025. FINDINGS: Three views of the left ankle are submitted. Osseous mineralization is normal. The patient is again noted to be status post internal fixation of the distal fibula with a sideplate and multiple orthopedic screws. The fracture line is less well visualized, consistent with healing. The joint spaces are preserved. There is diffuse mild soft tissue swelling. XR/XR ankle LT min 3V IMPRESSION: Continued healing of an internally fixed fracture of the distal fibula. Electronically signed by: Gordy Hernández MD 03/16/2025 01:53 PM EDT
== END 2025-03-16 09:33 | disposition home or self-care (01) ==
LOC: HO.HOSX 09:32
DX: M25.572 Pain in left ankle and joints of left foot (principal)
CPT/HCPCS: 73610

== ENCOUNTER 2025-03-16 09:32 | Outpatient (AMB) | payer OTHER, SELFPAY ==
--- NOTE | 2025-03-16 09:51 | A.OFFVIS_ITS ---
Intake Visit Reasons: PO: Lt Ankle ORIF 01/18/25 NE-severe pain Intake Note: Nathalie is a 39 year old female who presents today for with complaints of left ankle pain status post left ankle ORIF, DOS 01/18/25. Patient reports that she returned back to work and believes she may be doing too much. She continues to have swelling and a warm sensation that wraps around her ankle. She has shooting pain near her achilles area that radiates into the bottom of her foot towards the base of her toes. Finds no relief with ibuprofen. Allergies No Known Allergies Allergy (Verified 03/16/25 09:59) HPI HPI PO: Lt Ankle ORIF 01/18/25 NE-severe pain: Details: Nathalie is a 39 year old female who presents today for with complaints of left ankle pain status post left ankle ORIF, DOS 01/18/25. Patient reports that she returned back to work and believes she may be doing too much. She continues to have swelling and a warm sensation that wraps around her ankle. Reports pain near the incision site at the level of the fracture. She has shooting pain near her achilles area that radiates into the bottom of her foot towards the base of her toes. Finds no relief with ibuprofen. Patient reports she has not been compliant with light duty restrictions, as her job does not have them, and that she has been on her feet for frequent extended periods. [facility] Medical History Marijuana use GERD (gastroesophageal reflux disease) Anxiety Depression Surgical History No pertinent past surgical history Social History Patient Tobacco Use Status: Never used Tobacco Current occupational status: employed Current occupation: [employer] [place] [place] [employer] Review of Systems Const All systems reviewed & are unremarkable except as noted in HPI and below Physical Exam Const General: cooperative, healthy appearing, comfortable, no acute distress, well developed and alert Orientation/consciousness: patient oriented x3 HEENT Head: Yes normal to inspection, Yes normocephalic and Yes atraumatic Eyes General: appearance normal, both eyes and all related structures Neck Neck: Yes normal visual inspection and Yes no lymphadenopathy Resp Effort & Inspection: normal respiratory effort and able to speak in complete sentences Cardio Rate: regular rate Peripheral pulses: Peripheral pulses 2+ throughout GI Inspection: Yes normal to inspection Palpation (GI): Soft to palpation Skin General skin exam: no rashes or lesions noted Neuro General: patient oriented x3 Extrem Other: Left ankle is edematous along the lateral aspect of the ankle. She has very improved swelling throughout the foot and ankle, improved from previous evaluation. There is a well approximated and well healed incision noted on the lateral aspect of the left ankle, no drainage at this time. Distal sensation intact. Capillary refill brisk. No redness, warmth, or other evidence of infection. Psych Appearance: grossly normal Mental Status: mental status grossly normal Results Reviewed Results Reviewed: X-rays obtained in the office today and independently reviewed by me, Polo Cisneros PA-C, demonstrate surgically reduced fracture of the distal fibula of the left ankle with all orthopedic hardware in place, in satisfactory clinical alignment, and with evidence of early interval bony healing. Assessment & Plan Assessment & Plan (1) Closed fracture of left distal fibula: Code(s): S82.832A - Other fracture of upper and lower end of left fibula, initial encounter for closed fracture Category: Medical Plan 1. Status post ORIF of left fibula DOS 01/18/2025 Patient appears to be recovering well postoperatively Patient is educated about the typical recovery course Patient is taken out of work at this time, as it seems that she has overdone it and she should be resting No further dressings necessary To elevate as much as possible Follow-up in 1 weeks with repeat x-rays, sooner with any acute concerns Orders: Orders XR ankle LT min 3V 03/16/25 M25.572 - Pain in left ankle and joints of left foot Coding Level of Care Code Global (93888) Diagnoses Closed fracture of left distal fibula S82.832A
--- OUTSIDE RECORDS SUMMARY | 2025-03-16 10:27 | XMS_ITS | Clinical Summary ---
Author Organization [employer] Address [address] [place] [address] Care Team Providers Care Patient Consumer Marketer Name Role Phone Unavailable Primary Care Provider Unavailabl e Encounters Date Type Department Care Team Description 01/11/2025 Orders Only [facility] External Provider, [facility] from Last 3 Months Social [...] Narrative 01/12/2025 1:43 AM EDT ? [facility] ?[address] ?[place] [address] ?XRay Report ? Signed ? Patient: Correia,Nathaliedania Machado ?MR#: M ?? [id number] ? : 1985 ?Acct:[id number] ? Age/Sex: 39 / F ?ADM Date: 04/08/25 ? Loc: HO.ED ? Attending Dr: ? Ordering Physician: Augusto Esparza MD ?? Date of Service: 01/12/25 ?? Procedure(s): XR tibia fibula LT 2V ?? Accession Number(s): [id number] ? cc: Augusto Esparza MD; Leandra Carbajal [...] DD/ 0141 ? TD/TT: 01/12/25 0141 ? Shirt Folder: ? Procedure Note Mary Oliva - 01/13/[address] [address] XRay Report Signed Patient: Nathalie CorreiaNHR#: M [id number] : 1985Acct:[id number] Age/Sex: 39 / FADM Date: 01/11/25 Loc: .ED Attending Dr: Ordering Physician: Augusto Esparza MD Date of Service: 01/12/25 Procedure(s): XR tibia fibula LT 2V Accession Number(s): [id number] cc: Augusto Esparza MD; Leandra Carbajal MD [...] in OV> 01/12/25141 DD/ 0 TD/TT: 01/12/25140 Shirt Folder: [facility] External Provider IMG XR PROCEDURES Edited Result - Final * XR Sacrum Coccyx 2+ Views (01/12/2025 1:40 AM EDT) Anatomical Region Laterality Modality Sacrum, Coccyx Radiographic Stacey ging 01/12/2025 1:40 AM EDT Narrative 01/12/2025 1:42 AM EDT ? [facility] ?[address] ?[place] [address] ?XRay Report ? Signed ? Patient: MasoodNathaliedania Machado ?MR#: M ?? [id number] ? : 1985 ?Acct:[id number] ? Age/Sex: 39 / F ?ADM Date: 01/11/25 ? Loc: HO.ED ? Attending Dr: ? Ordering Physician: Augusto Esparza MD ?? Date of Service: 01/12/25 ?? Procedure(s): XR sacrum coccyx min 2V ?? Accession Number(s): [id number] ? cc: Augusto Esparza MD; Leandra Carbajal MD ? CLINICAL HISTORY: trauma ? 4 views sacrum and coccyx ? Comparison: None ? Findings ?? No acute fractures. ?? No significant degenerative change. No erosions. ? IMPRESSION: ?? No acute findings ? This document has been electronically signed by: Elian Preicado MD on ?? 01/12/2025 01:40:50 ? Dictated By: ?Elian Preciado MD ? Signed By: ?<Electronically signed by Elian Preciado MD in OV> ?01/12/25 0141 ? DD/ 0140 ? TD/TT: 01/12/25 0140 ? Shirt Folder: ? Procedure Note Mary Oliva - 01/13/2025 [address] [place] [address] XRay Report Signed Patient: Nathalie Correia#: M [id number] : 1985Acct:[id number] Age/Sex: 39 / FADM Date: 01/11/25 Loc: HO.ED Attending Dr: Ordering Physician: Augusto Esparza MD Date of Service: 01/12/25 Procedure(s): XR sacrum coccyx min 2V Accession Number(s): [id number] cc: Augusto Esparza MD; Leandra Carbajal MD [...] OV> 01/12/25 014 DD/ 9 TD/TT: 01/12/25139 Shirt Folder: [facility] External Provider IMG XR PROCEDURES Edited Result - Final * XR Ankle 3+ Views Left (01/11/2025 10:03 PM EDT) Anatomical Region Laterality Modality Lower Extremities, Ankle Left Radiogr aphic Imaging 01/11/2025 10:0 3 PM EDT Narrative 01/11/2025 10:05 PM EDT ? [facility] ?[address] ?[place] [address] ?XRay Report ? Signed ? Patient: Correia,Nathalie Carter ?MR#: M ?? [id number] ? : 1985 ?Acct:[id number] ? Age/Sex: 39 / F ?ADM Date: 04/08/25 ? Loc: HO.ED ? Attending Dr: ? Ordering Physician: Generic ED Physician ?? Date of Service: 01/11/25 ?? Procedure(s): XR ankle LT min 3V ?? Accession Number(s): [id number] ? cc: Generic ED Physician; Leandra Carbajal [...] ? DD/ 02 ? TD/TT: 01/11/252202 ? Shirt Folder: ? Procedure Note Donmargarethter, Image - 01/13/2025 [place] [address] XRay Report Signed Patient: Nathalie CorreianMR#: M [id number] : 1985Acct:[id number] Age/Sex: 39 / FADM Date: 01/11/25 Loc: HO.ED Attending Dr: Ordering Physician: Generic ED Physician Date of Service: 01/11/25 Procedure(s): XR ankle LT min 3V Accession Number(s): [id number] cc: Generic ED Physician; Leandra Carbajal MD [...] Preciado MD Signed By: <Electronically signed by lEian Preciado MD in OV> 01/11/252203 DD/ 02 TD/TT: 01/11/252202 Shirt Folder: [facility] External Provider IMG XR PROCEDURES Edited Result - Final * HPV mRNA E6/E7 (10/16/2016 10:39 AM EST) HPV mRNA E6/E7 Not Detected NOT DETECTED [facility] Comment: This test was performed using the APTIMA(R) HPV Assay ([employer] This assay detects E6/E7 viral messenger RNA (mRNA) from 14 high-risk HPV types (16,18,31,33,35,39,45,51, 52,56,58,59,66,68). For additional information please refer to: http://education.Cloud Security/faq/AFW395b4 (This link is being provided for informational/ educational purposes only.) Test Performed by Celsa Pendleton, [employer] [facility], [address] [place] [id number] Levi Chairez M.D., Ph.D., Director of Laboratories , [facility] [id number] Please note: ??Effective 06/17/2016, HPV testing will be performed using [employer]'s APTIMA test which targets mRNA. Detecting mRNA instead of DNA, as in older methods, offers significant improvements in specificity. 10/16/2016 10:3 9 AM EST us Historical Provider HISTORICAL/NON ORDERABLE LABS Final Result [facility] [address] from Last 3 Months or Most Recently Relevant to Health Maintenance
== END 2025-03-16 10:24 | disposition home or self-care (01) ==
LOC: HO.HOS 09:32
DX: S82.832A Other fracture of upper and lower end of left fibula, initial encounter for closed fracture (principal)
CPT/HCPCS: 99024

== ENCOUNTER → 2025-03-16 09:40 | Outpatient (BNV) | payer OTHER, SELFPAY | PROVIDERS: Visit Provider Radiology Diagnostic Radiology | DX: S82.832D Other fracture of upper and lower end of left fibula, subsequent encounter for closed fracture with routine healing (principal) | CPT/HCPCS: 73610 ==

== ENCOUNTER 2025-03-22 09:10 | Outpatient (AMB) | payer OTHER, SELFPAY ==
--- NOTE | 2025-03-22 09:12 | A.OFFVIS_ITS ---
Vital Signs 03/22/25 09:30 Height 5 ft 2 in Weight 163 lb BMI 29.8 Intake Visit Reasons: PO: Lt Ankle ORIF 01/18/25 NE-severe pain Intake Note: Nathalie is a 39 year old female who presents today post operative s/p ORIF of left lateral malleolus DOS: 01/20/[address] Hermann Carmona. Patient reports she is having shooting pain in the left ankle and continued tenderness. Prolonged standing causing an exacerbation in her pain and her left foot is having continued swelling. OTC medication is not providing her adequate relief. Allergies No Known Allergies Allergy (Verified 03/22/25 09:30) HPI HPI PO: Lt Ankle ORIF 01/18/25 NE-severe pain: Details: Nathalie is a 39 year old female who presents today post operative s/p ORIF of left lateral malleolus DOS: 01/20/[address] Hermann Carmona. Patient reports she is having shooting pain in the left ankle and continued tenderness. Prolonged standing causing an exacerbation in her pain and her left foot is having continued swelling. OTC medication is providing some relief, but not full. The patient states that her pain at rest has improved significantly, but she does continue to experience significant discomfort while standing for prolonged periods, such as being in the grocery store. Reports swelling has gone down since previous evaluation. 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 Review of Systems Const All systems reviewed & are unremarkable except as noted in HPI and below Physical Exam Vital Signs: BMI result Body Mass Index 29.8 Const General: cooperative, healthy appearing, comfortable, no acute distress, well developed and alert Orientation/consciousness: patient oriented x3 HEENT Head: Yes normal to inspection, Yes normocephalic and Yes atraumatic Eyes General: appearance normal, both eyes and all related structures Neck Neck: Yes normal visual inspection and Yes no lymphadenopathy Resp Effort & Inspection: normal respiratory effort and able to speak in complete sentences Cardio Rate: regular rate Peripheral pulses: Peripheral pulses 2+ throughout GI Inspection: Yes normal to inspection Palpation (GI): Soft to palpation Skin General skin exam: no rashes or lesions noted Neuro General: patient oriented x3 Extrem Other: Left ankle is edematous along the lateral aspect of the ankle. She has improved swelling throughout the foot and ankle, improved from previous evaluation. There is a well approximated and well healed incision noted on the lateral aspect of the left ankle, no drainage at this time. Distal sensation intact. Capillary refill brisk. No redness, warmth, or other evidence of infection. Psych Appearance: grossly normal Mental Status: mental status grossly normal Assessment & Plan Assessment & Plan (1) Closed fracture of left distal fibula: Code(s): S82.832A - Other fracture of upper and lower end of left fibula, initial encounter for closed fracture Category: Medical Plan 1. Status post ORIF of left fibula DOS 01/18/2025 Patient appears to be recovering well postoperatively Patient is educated about the typical recovery course Patient is taken out of work at this time, as it seems that she has overdone it and she should be resting No further dressings necessary To elevate as much as possible PT order to begin working on range of motion and to work on pain relief Follow-up in 1 weeks with repeat x-rays, sooner with any acute concerns Orders: Orders PT Evaluation and Treatment Today S82.832A - Other fracture of upper and lower end of left fibula, initial encounter for closed fracture Coding Level of Care Code Global (03630) Diagnoses Closed fracture of left distal fibula S82.832A
[2025-03-22 09:30] VITALS: BMI 29.8
== END 2025-03-22 09:44 | disposition home or self-care (01) ==
LOC: HO.HOS 09:11
DX: S82.832A Other fracture of upper and lower end of left fibula, initial encounter for closed fracture (principal)
CPT/HCPCS: 99024

== ENCOUNTER 2025-03-31 13:07 | Outpatient (REF) | payer OTHER, SELFPAY ==
--- NOTE | ~2025-03-31 | XR_ITS ---
CLINICAL HISTORY: M25.572 - Pain in left ankle and joints of left foot Left ankle two views Comparison: 01/31/2025 Findings: No acute fracture or dislocation identified. Prior distal fibular fracture fixation hardware. Hardware is intact without loosening or break. Ankle mortise is intact. Impression: Status post distal fibular fracture fixation No acute abnormality This document has been electronically signed by: Jevon Crow MD on 03/31/2025 21:24:39
--- OUTSIDE RECORDS SUMMARY | 2025-03-31 15:44 | XMS_ITS | Clinical Summary ---
Author Organization [employer] Address [address] [place] [address] Care Team Providers Care Supervisor Inspection Name Role Phone Unavailable Primary Care Provider Unavailabl e Encounters Date Type Department Care Team Description 01/11/2025 Orders Only [facility] External Provider, [facility] from Last 3 Months Social [...] Years) and At-Risk Patients (6 to 49) Years Aged Out No longer eligible b ased [...] AM EDT Narrative 01/12/2025 1:43 AM EDT [address] [address] XRay Report Signed Patient: Nathalie Coreria MR#: M [id number] : 1985 Acct:[id number] Age/Sex: 39 / F ADM Date: 01/11/25 Loc: HO.ED Attending Dr: Ordering Physician: Augusto Esparza MD Date of Service: 01/12/25 Procedure(s): XR tibia fibula LT 2V Accession Number(s): [id number] cc: Augusto Esparza MD; Leandra Carbajal MD [...] Preciado MD in OV> 01/12/25 014 DD/ 0 TD/TT: 01/12/25140 Home Care Attendant: Procedure Note Donotuseinterpreter, Image - 01/13/2025 [place] [address] XRay Report Signed Patient: Nathalie CorreiaIDR#: M [id number] : 1985Acct:[id number] Age/Sex: 39 / FADM Date: 01/11/25 Loc: .ED Attending Dr: Ordering Physician: Augusto Esparza MD Date of Service: 01/12/25 Procedure(s): XR tibia fibula LT 2V Accession Number(s): [id number] cc: Augusto Esparza MD; Leandra Carbajal MD [...] in OV> 01/12/25141 DD/ 0 TD/TT: 01/12/25140 Home Care Attendant: [facility] External Provider IMG XR PROCEDURES Edited Result - Final * XR Sacrum Coccyx 2+ Views (01/12/2025 1:40 AM EDT) Anatomical Region Laterality Modality Sacrum, Coccyx Radiographic Stacey ging 01/12/2025 1:40 AM EDT Narrative 01/12/2025 1:42 AM EDT [place] [address] XRay Report Signed Patient: Nathalie Correia MR#: M [id number] : 1985 Acct:[id number] Age/Sex: 39 / F ADM Date: 01/11/25 Loc: HO.ED Attending Dr: Ordering Physician: Augusto Esparza MD Date of Service: 01/12/25 Procedure(s): XR sacrum coccyx min 2V Accession Number(s): [id number] cc: Augusto Esparza MD; Leandra Carbajal MD [...] in OV> 01/12/25140 DD/ 9 TD/TT: 01/12/25139 Home Care Attendant: Procedure Note Donotuseinterpreter, Image - 01/13/[address] [address] XRay Report Signed Patient: Nathalie CorreianMR#: M [id number] : 1985Acct:[id number] Age/Sex: 39 / FADM Date: 01/11/25 Loc: HO.ED Attending Dr: Ordering Physician: Augusto Esparza MD Date of Service: 01/12/25 Procedure(s): XR sacrum coccyx min 2V Accession Number(s): [id number] cc: Augusto Esparza MD; Leandra Carbajal MD [...] in OV> 01/12/25140 DD/ 9 TD/TT: 01/12/25139 Home Care Attendant: [facility] External Provider IMG XR PROCEDURES Edited Result - Final * XR Ankle 3+ Views Left (01/11/2025 10:03 PM EDT) Anatomical Region Laterality Modality Lower Extremities, Ankle Left Radiogr aphic Imaging 01/11/2025 10:0 3 PM EDT Narrative 01/11/2025 10:05 PM EDT [place] [address] XRay Report Signed Patient: Nathalie Correia MR#: M [id number] : 1985 Acct:[id number] Age/Sex: 39 / F ADM Date: 01/11/25 Loc: HO.ED Attending Dr: Ordering Physician: Generic ED Physician Date of Service: 01/11/25 Procedure(s): XR ankle LT min 3V Accession Number(s): [id number] cc: Generic ED Physician; Leandra Carbajal MD [...] in OV> 01/11/252203 DD/ 02 TD/TT: 01/11/252202 Home Care Attendant: Procedure Note Donotuseinterpreter, Image - 01/13/2025 [place] [address] XRay Report Signed Patient: Nathalie CorreianMR#: M [id number] : 1985Acct:[id number] Age/Sex: 39 / FADM Date: 01/11/25 Loc: HO.ED Attending Dr: Ordering Physician: Generic ED Physician Date of Service: 01/11/25 Procedure(s): XR ankle LT min 3V Accession Number(s): [id number] cc: Generic ED Physician; Leandra Carbajal MD [...] This document has been electronically signed by: Elain Preciado MD on 01/11/2025 22:03:43 Dictated By: Elian Preciado MD Signed By: <Electronically signed by Elian Preciado MD in OV> 01/11/252203 DD/ 02 TD/TT: 01/11/252202 Home Care Attendant: [facility] External Provider IMG XR PROCEDURES Edited Result - Final * HPV mRNA E6/E7 (10/16/2016 10:39 AM EST) HPV mRNA E6/E7 Not Detected NOT DETECTED [facility] Comment: This test was performed using the APTIMA(R) HPV Assay ([employer] This assay detects E6/E7 viral messenger RNA (mRNA) from 14 high-risk HPV types (16,18,31,33,35,39,45,51, 52,56,58,59,66,68). For additional information please refer to: http://education.Enablon/faq/KKL832j5 (This link is being provided for informational/ educational purposes only.) Test Performed by [employer], [employer] [facility], [address] [place] [address] Levi Chairez M.D., Ph.D., Director of Laboratories , [facility] [id number] Please note: Effective 06/17/2016, HPV testing will be performed using [employer]s APTIMA test which targets mRNA. Detecting mRNA instead of DNA, as in older methods, offers significant improvements in specificity. 10/16/2016 10:3 9 AM EST Historical Provider HISTORICAL/NON ORDERABLE LABS Final Result [facility] [address] from Last 3 Months or Most Recently Relevant to Health Maintenance
== END 2025-03-31 13:08 | disposition home or self-care (01) ==
LOC: HO.HOSX 13:07
DX: S82.832A Other fracture of upper and lower end of left fibula, initial encounter for closed fracture (principal)
CPT/HCPCS: 73610

== ENCOUNTER 2025-03-31 13:09 | Outpatient (AMB) | payer OTHER, SELFPAY ==
--- NOTE | 2025-03-31 13:19 | MHC.OFFVIS ---
Vital Signs 03/31/25 13:22 Height 5 ft 2 in Weight 136 lb BMI 24.9 Intake Visit Reasons: PO: Lt Ankle ORIF 01/18/25 NE-severe pain Intake Note: Nathalie is a 39 year old female who presents today post operative s/p ORIF of left lateral malleolus DOS: 01/20/[address] Hermann Carmona. X-rays have been updated today in office. Patient reports her severe pain has decreased, stating improvement on her shooting pain. She mentions that she has removed walking boot and applied light pressure to her foot. She has ongoing swelling and tightness in her ankle. Allergies No Known Allergies Allergy (Verified 03/31/25 13:23) HPI HPI PO: Lt Ankle ORIF 01/18/25 NE-severe pain: Details: Nathalie is a 39 year old female who presents today post operative s/p ORIF of left lateral malleolus DOS: 01/20/[address] Hermann Carmona. X-rays have been updated today in office. Patient reports her severe pain has decreased, stating improvement on her shooting pain. She mentions that she has removed walking boot and applied light pressure to her foot. She has ongoing swelling and tightness in her ankle but both of these have also improved. Overall, the patient states that she is feeling much better, and feels that her acute increase in pain that she experienced was likely due to overdoing it at work. 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 Systems Const All systems reviewed & are unremarkable except as noted in HPI and below Physical Exam Vital Signs: BMI result Body Mass Index 24.9 Const General: cooperative, healthy appearing, comfortable, no acute distress, well developed and alert Orientation/consciousness: patient oriented x3 HEENT Head: Yes normal to inspection, Yes normocephalic and Yes atraumatic Eyes General: appearance normal, both eyes and all related structures Neck Neck: Yes normal visual inspection and Yes no lymphadenopathy Resp Effort & Inspection: normal respiratory effort and able to speak in complete sentences Cardio Rate: regular rate Peripheral pulses: Peripheral pulses 2+ throughout GI Inspection: Yes normal to inspection Palpation (GI): Soft to palpation Skin General skin exam: no rashes or lesions noted Neuro General: patient oriented x3 Extrem Other: Left ankle is edematous along the lateral aspect of the ankle, improved from previous visit. She has improved swelling throughout the foot and ankle, improved from previous evaluation. There is a well approximated and well healed incision noted on the lateral aspect of the left ankle, no drainage at this time. Distal sensation intact. Capillary refill brisk. No redness, warmth, or other evidence of infection. Psych Appearance: grossly normal Mental Status: mental status grossly normal Results Reviewed Results Reviewed: X-rays obtained in the office today and independently reviewed by me, Polo Cisneros PA-C, demonstrate surgically reduced fracture of the distal fibula of the left ankle with all orthopedic hardware in place, in satisfactory clinical alignment, and with evidence of early interval bony healing. Assessment & Plan Assessment & Plan (1) Closed fracture of left distal fibula: Code(s): S82.832A - Other fracture of upper and lower end of left fibula, initial encounter for closed fracture Category: Medical Plan 1. Status post ORIF of left fibula DOS 01/18/2025 Patient appears to be recovering well postoperatively Patient is educated about the typical recovery course Patient is taken out of work at this time, as it seems that she has overdone it and she should be resting Patient is educated that she should absolutely not be putting any weight on the ankle without the boot on, as this could lead to destabilization of the hardware and recurrence of fracture. No further dressings necessary To elevate as much as possible Continue PT to work on on range of motion and to work on pain relief Follow-up in 2 weeks with repeat x-rays, sooner with any acute concerns Orders: Orders XR ankle LT min 3V 03/31/25 M25.572 - Pain in left ankle and joints of left foot Coding Level of Care Code Global (68551) Diagnoses Closed fracture of left distal fibula S82.832A
[2025-03-31 13:22] VITALS: BMI 24.9
== END 2025-03-31 13:38 | disposition home or self-care (01) ==
LOC: HO.HOS 13:09
DX: S82.832A Other fracture of upper and lower end of left fibula, initial encounter for closed fracture (principal)
CPT/HCPCS: 99024

== ENCOUNTER → 2025-03-31 13:12 | Outpatient (BNV) | payer OTHER, SELFPAY | PROVIDERS: Visit Provider Radiology Diagnostic Radiology | DX: M25.572 Pain in left ankle and joints of left foot (principal) | CPT/HCPCS: 73610 ==

== ENCOUNTER 2025-04-11 09:36 | Outpatient (REF) | payer OTHER, SELFPAY ==
--- NOTE | ~2025-04-11 | XR_ITS ---
CLINICAL HISTORY: M25.572 - Pain in left ankle and joints of left foot Radiographs of the left ankle, 3 views Comparison: DX - XR ANKLE LT MIN 3V - 03/31/25 13:12 EDT DX/SR - XR ANKLE LT MIN 3V - 03/16/25 09:40 EDT DX/SR - XR ANKLE LT MIN 3V - 03/01/25 10:16 EDT DX - XR ANKLE LT MIN 3V - 01/31/25 10:39 EDT CR - XR TIBIA FIBULA LT 2V - 01/12/25 01:03 EDT CR - XR ANKLE LT MIN 3V - 01/11/25 21:34 EDT Findings: There is no acute fracture or dislocation. Status post fixation of the distal fibula with a sideplate and screws. The hardware is intact. There is anatomic alignment. The fracture line is less apparent than on the prior studies, likely indicating healing. There is a trace amount of calcification versus linear ossific fragment in the lateral clear space, also present on the prior studies, posttraumatic. The ankle mortise is congruent. No degenerative change. Bone mineralization is normal. Soft tissue swelling. Impression: Status post fixation of the distal fibular fracture which is healing. Intact hardware. Anatomic alignment. Trace calcification versus linear ossific fragment in the lateral clear space, also present on the prior studies, posttraumatic. This document has been electronically signed by: Maria L Cook MD on 04/11/2025 22:28:03
--- OUTSIDE RECORDS SUMMARY | 2025-04-11 10:08 | XMS_ITS | Clinical Summary ---
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 Buying Name Role Phone Unavailable Primary Care Provider Unavailabl e Encounters Date Type Department Care Team Description 01/11/2025 Orders Only [facility] External Provider, [facility] from Last 3 Months Social History [...] Vaccine ( - 2023-2 5 season) 2024 Influenza Vaccine (#1) 2025 06/16/2024 DTaP/Tdap/Td Vaccines (3 - T d or [...] AM EDT Narrative 01/12/2025 1:43 AM EDT [address] [address] XRay Report Signed Patient: Nathalie Correia MR#: M [id number] : 1985 Acct:[id number] Age/Sex: 39 / F ADM Date: 01/11/25 Loc: HO.ED Attending Dr: Ordering Physician: Augusto Esparza MD Date of Service: 01/12/25 Procedure(s): XR tibia fibula LT 2V Accession Number(s): [id number] cc: Augusto Esparza MD; Leandra Carbajal MD [...] in OV> 01/12/25141 DD/ 0 TD/TT: 01/12/25140 [employer]: Procedure Note Donotuseinterpreter, Image - 01/13/2025 [place] [address] XRay Report Signed Patient: Nathalie CorreiaPAR#: M [id number] : 1985Acct:[id number] Age/Sex: 39 / FADM Date: 01/11/25 Loc: .ED Attending Dr: Ordering Physician: Augusto Esparza MD Date of Service: 01/12/25 Procedure(s): XR tibia fibula LT 2V Accession Number(s): [id number] cc: Augusto Esparza MD; Leandra Carbajal MD [...] in OV> 01/12/25141 DD/ 0 TD/TT: 01/12/25140 [employer] Install[employer]: [facility] External Provider IMG XR PROCEDURES Edited Result - Final * XR Sacrum Coccyx 2+ Views (01/12/2025 1:40 AM EDT) Anatomical Region Laterality Modality Sacrum, Coccyx Radiographic Stacey ging 01/12/2025 1:40 AM EDT Narrative 01/12/2025 1:42 AM EDT [address] [address] XRay Report Signed Patient: Nathalie Correia MR#: [id number] : 1985 Acct:[id number] Age/Sex: 39 / F ADM Date: 01/11/25 Loc: .ED Attending Dr: Ordering Physician: Augusto Esparza MD Date of Service: 01/12/25 Procedure(s): XR sacrum coccyx min 2V Accession Number(s): [id number] cc: Augusto Esparza MD; Leandra Carbajal MD [...] in OV> 01/12/25140 DD/ 9 TD/TT: 01/12/25139 [employer] Install[employer]icer: Procedure Note Pj, Image - 01/13/[address] [address] XRay Report Signed Patient: Nathalie CorreianMR#: M [id number] : 1985Acct:[id number] Age/Sex: 39 / FADM Date: 01/11/25 Loc: HO.ED Attending Dr: Ordering Physician: Augusto Esparza MD Date of Service: 01/12/25 Procedure(s): XR sacrum coccyx min 2V Accession Number(s): [id number] cc: Augusto Esparza MD; Leandra Carbajal MD [...] in OV> 01/12/25140 DD/ 9 TD/TT: 01/12/25139 [employer]: [facility] External Provider IMG XR PROCEDURES Edited Result - Final * XR Ankle 3+ Views Left (01/11/2025 10:03 PM EDT) Anatomical Region Laterality Modality Lower Extremities, Ankle Left Radiogr aphic Imaging 01/11/2025 10:0 3 PM EDT Narrative 01/11/2025 10:05 PM EDT [place] [address] XRay Report Signed Patient: Nathalie Correia MR#: M [id number] : 1985 Acct:[id number] Age/Sex: 39 / F ADM Date: 01/11/25 Loc: HO.ED Attending Dr: Ordering Physician: Generic ED Physician Date of Service: 01/11/25 Procedure(s): XR ankle LT min 3V Accession Number(s): [id number] cc: Generic ED Physician; Leandra Carbajal MD [...] in OV> 01/11/252203 DD/ 02 TD/TT: 01/11/252202 [employer] Install[employer] Servicer: Procedure Note Donotuseinterpreter, Image - 01/13/2025 [place] [address] XRay Report Signed Patient: Nathalie CorreianMR#: M [id number] : 1985Acct:[id number] Age/Sex: 39 / FADM Date: 01/11/25 Loc: HO.ED Attending Dr: Ordering Physician: Generic ED Physician Date of Service: 01/11/25 Procedure(s): XR ankle LT min 3V Accession Number(s): [id number] cc: Generic ED Physician; Leandra Carbajal MD [...] MD in OV> 01/11/252203 DD/ 02 TD/TT: 04/08/25 2203 [employer] Installer [employer] Servicer: [facility] External Provider IMG XR PROCEDURES Edited Result - Final * HPV mRNA E6/E7 (10/16/2016 10:39 AM EST) HPV mRNA E6/E7 Not Detected NOT DETECTED [facility] Comment: This test was performed using the APTIMA(R) HPV Assay ([employer] This assay detects E6/E7 viral messenger RNA (mRNA) from 14 high-risk HPV types (16,18,31,33,35,39,45,51, 52,56,58,59,66,68). For additional information please refer to: http://education.Informaat/faq/AFN931s4 (This link is being provided for informational/ educational purposes only.) Test Performed by Celsa Pendleton, [facility], [address] [place] [id number] Levi Chairez M.D., Ph.D., Director of Laboratories , [facility] [id number] Please note: Effective 06/17/2016, HPV testing will be performed using [employer]'s APTIMA test which targets mRNA. Detecting mRNA instead of DNA, as in older methods, offers significant improvements in specificity. 10/16/2016 10:3 9 AM EST Historical Provider HISTORICAL/NON ORDERABLE LABS Final Result [facility] [address] from Last 3 Months or Most Recently Relevant to Health Maintenance
--- OUTSIDE RECORDS SUMMARY | 2025-04-11 10:09 | XMS_ITS | Clinical Summary ---
Author Organization [facility] [address] [facility] Address [address] [place] [address] Phone Care Team Providers Care Dust Box Worker Name Role Phone Martha Vidal MD Primary Care Pr ovider Allergies No known active allergies Medications hydrOXYzine HCL (ATARAX) 25 mg tablet Take 1 tablet (25 mg total) by mouth 2 (two) times a day if needed for anxiety. for anxiety 60 tablet 2 5 Active cyclobenzaprine (FLEXERIL) 10 mg tablet Take 1 tablet (10 mg total) by mouth at bedtime as needed for muscle spasms. 30 tablet 2 5 Active escitalopram (LEXAPRO) 10 mg tablet Take 2 tablets (20 mg total) by mouth 1 (one) time each day. 180 tablet 1 5 Active cyclobenzaprine (FLEXERIL) 10 mg tablet Take 1 tablet (10 mg total) by mouth at bedtime as needed for muscle spasms. 30 tablet 1 5 03/25/20 25 Discontinu ed(Reorder ) escitalopram (LEXAPRO) 10 mg tablet Take 1.5 tablets (15 mg total) by mouth 1 (one) time each day. 135 tablet 1 5 03/25/20 25 Discontinu ed(Reorder ) Hospital, Clinic, or Other Facility Administered Medication Ordered Dose Route Frequency Start Date End Date Status cyanocobalamin (VITAMIN B-12) injection 1,000 mcgIndications:Vitamin B12 deficiency disease 1000 mcg IM Once 03/25/2025 03/25/2025 Ended Active Problems Problem Noted Date Diagnosed Date [...] Encounters Date Type Department Care Team Description 03/25/2025 9:00 AM EDT Office Visit Adult Medicine [address] [phone] Melissa Bains PA Anxiety and depression (Primary Dx); Vitamin B12 deficiency disease; Primary hypertension 02/10/2025 12:30 PM EDT Office Visit [address] [phone] Melissa Bains PA Annual physical exam (Primary Dx); Screen for STD (sexually transmitted disease); Family history of breast cancer; Anemia due to vitamin B12 deficiency, unspecified B12 deficiency type; Anxiety and depression; Insomnia, unspecified type; Closed fracture of distal end of left fibula, unspecified fracture morphology, initial encounter; Primary hypertension; Chronic bilateral thoracic back pain; DJD (degenerative joint disease), thoracolumbar from Last 3 Months Immunizations Name Administration Dates Next Due Influenza trivalent, 0.5mL, preservative free (Fluarix; FluLaval; Fluzone) ages 6mo and older (Afluria) 3 years and older 06/16/2024 MMR, measles mumps and rubel la Live (Priorix; M-M-R II) 12mo and older 12/06/2024 Tdap Tetanus diptheria acell ular pertussis (Boostrix; Adacel) 7yo and older 11/13/2022,02/01/2009 Surgical History Surgery Date Site/Laterality Comments OTHER SURGICAL HISTORY PROCEDURE: DENIES PREVIOUS SURGERY ANKLE SURGERY 01/17/2025 [facility] Medical History Medical History Date Comments Anxiety and depression B12 deficiency Chronic back pain GERD (gastroesophageal reflux disease) Hyperlipidemia HTN (hypertension) Left fibular fracture Family History Medical History Relation Name Comments Pancreatic cancer Maternal Grandmother Diabetes Mother Breast cancer Other Mat gr granmother Other: skin cancer Uncle maternal Colon cancer Neg Hx Relation Name Status Comments Father unknown Maternal Grandmother Mother Other Mat gr granmother Uncle maternal Alive Social History Tobacco Use Types Packs/Day Years Used Date Smoking Tobacco: Never Smokeless Tobacco: Never Tobacco Cessation:Counseling Given: Not Answered Alcohol Use Standard Drinks/Week Comments Yes 0 (1 standard drink = 0.6 oz pur e alcohol) Comments No Sex and Gender Information Value Date Recorded Sex Assigned at Not on file Legal Sex Female 11:56 PM EST Gender Identity Not on file Sexual Orientation Not on file Obstetrics History Last Filed Vital Signs Vital Sign Reading Time Taken Comments Blood Pressure 128/87 03/25/2025 8:58 AM EDT Pulse 88 03/25/2025 8:40 AM EDT Temperature 36.4 C (97.6 F) 03/25/2025 8:40 AM EDT Respiratory Rate 14 03/25/2025 8:40 AM EDT Oxygen Saturation 97% 03/25/2025 8:40 AM EDT Inhaled Oxygen Concentration - - Weight 74.8 kg (165 lb) 03/25/2025 8:40 AM EDT Height 157.5 cm (5' 2 ) 03/25/2025 8:40 AM EDT Body Mass Index 30.18 03/25/2025 8:40 AM EDT Plan of Treatment Upcoming Encounters Date Type Department Care Team (Late st Contact Info) Description 09/26/2025 8:30 AM EST Office Visit Adult Medicine [address] [phone] Martha Vidal MD [address] [place] [phone] Health Maintenance Due Date Last Done Comments Hepatitis B Vaccines (1 of 3 - 19+ 3-dose series) 2006 COVID-19 Vaccine (3 - 2023-2 5 season) 2024 01/29/2021, 12/31/2020 Influenza Vaccine (#1) 2025 06/16/2024 Depression Screening 02/10/2026 02/10/2025 Hypertension/CHF/CAD Annual BMP Blood Test 02/10/2026 02/10/2025, 06/16/2024, 06/16/2024 Social Influencers of Health Screening 02/10/2026 02/10/2025 Cervical Cancer Screening: HPV 09/02/2027 09/02/2022 Cholesterol Screening (Lipid Panel) 02/10/2030 02/10/2025, 06/16/2024, 06/16/2024 DTaP,Tdap,and Td Vaccines (3 - Td or Tdap) 11/13/2032 11/13/2022, 02/01/2009 MMR Vaccines Aged Out 12/06/2024 No longer eligi ble based on patient's age to complete this topic HIV Screening Completed 02/10/2025, 08/23/2004 Hepatitis C Screening Completed 02/10/2025 HIB Vaccines Aged Out No longer eligi [...] Procedure Name Priority Date/Time Associated Diagnosis Comments CBC WITH AUTO DIFFERENTIAL Routine 02/10/2025 1:13 PM EDT Annual physical exam CBC AND DIFFERENTIAL Routine 02/10/2025 1:13 PM EDT Annual physical exam COMPREHENSIVE METABOLIC PANEL Routine 02/10/2025 1:13 PM EDT Annual physical exam LIPID PANEL WITH REFLEX TO DIRECT LDL Routine 02/10/2025 1:13 PM EDT Annual physical exam HEMOGLOBIN A1C Routine 02/10/2025 1:13 PM EDT Annual physical exam TREPONEMA PALLIDUM ANTIBODY WITH REFLEX TO RPR AND PARTICLE AGGLUTINATION Routine 02/10/2025 1:13 PM EDT Screen for STD (sexually transmitted disease) HIV 1, 2 ANTIBODY, P24 ANTIGEN WITH REFLEX TO DIFFERENTIATION Routine 02/10/2025 1:13 PM EDT Screen for STD (sexually transmitted disease) HEPATITIS C ANTIBODY Routine 02/10/2025 1:13 PM EDT Screen for STD (sexually transmitted disease) CHLAMYDIA TRACHOMATIS AND NEISSERIA GONORRHOEAE PCR Routine 02/10/2025 1:13 PM EDT Screen for STD (sexually transmitted disease) HM HPV Routine 09/02/2022 from Last 3 Months or Most Recently Relevant to Health Maintenance Results * Hepatitis C antibody (02/10/2025 1:13 PM EDT) Hepatitis C Antibody Negative Negative LAB CHEMISTRY METHOD 02/10/2025 7:29 PM EDT [facility] Blood Venous blood specimen / Unknown Venipuncture / Unknown 02/10/2025 1:13 PM EDT 02/10/2025 1:13 PM EDT Melissa DAVIDSON LAB BLOOD ORDERABLES Final Re sult Performing Organization Address [facility] Co de Phone Number [facility] [address] [place] [address], * HIV 1,2 antibody, p24 antigen with reflex to differentiation (02/10/2025 1:13 PM EDT) HIV Combo AB/AG Negative Negative LAB CHEMISTRY METHOD 02/10/2025 7:30 PM EDT [facility] Blood Venous blood specimen / Unknown Venipuncture / Unknown 02/10/2025 1:13 PM EDT 02/10/2025 1:13 PM EDT Narrative [facility] - 02/10/2025 7:30 PM EDT This assay is a 4th generation assay allowing for earlier detection of HIV infection by detecting the presence of the HIV-1 p24 antigen as well as the traditional antibodies to HIV type 1 (including group O) and type 2. Use of a 4th generation assay is the current CDC recommendation for HIV screening. us Melissa DAVIDSON LAB BLOOD ORDERABLES Final Re sult Performing Organization Address [facility] de Phone Number [facility] [address] [place] [address], * Treponema pallidum antibody with reflex to RPR and particle agglutination (02/10/2025 1:13 PM EDT) T. Pallidum Antibodies Negative Negative LAB CHEMISTRY METHOD 02/10/2025 7:01 PM EDT [facility] Blood Venous blood specimen / Unknown Venipuncture / Unknown 02/10/2025 1:13 PM EDT 02/10/2025 1:13 PM EDT us Melissa DAVIDSON LAB BLOOD ORDERABLES Final Re sult Performing Organization Address [facility] Co de Phone Number [facility] [address] [place] [address], [place] [phone] * (ABNORMAL) Lipid panel with reflex to direct LDL (02/10/2025 1:13 PM EDT) Cholesterol 249(H) 0 - 200 mg/dL LAB CHEMISTRY METHOD 02/10/2025 5:49 PM EDT [facility] Triglycerides 336(H) 0 - 150 mg/dL LAB CHEMISTRY METHOD 02/10/2025 5:49 PM EDT [facility] HDL 44 >=40 mg/dL LAB CHEMISTRY METHOD 02/10/2025 5:49 PM EDT [facility] LDL Calculated 138(H) 0 - 100 mg/dL LAB CHEMISTRY METHOD 02/10/2025 5:49 PM EDT [facility] VLDL Cholesterol Nas 67.2 mg/dL LAB CHEMISTRY METHOD 02/10/2025 5:49 PM EDT [facility] Non HDL Chol. (LDL+VLDL) 205(H) <145 mg/dL LAB CHEMISTRY METHOD 02/10/2025 5:49 PM EDT [facility] Chol/HDL Ratio 5.7(H) 0.0 - 4.4 LAB CHEMISTRY METHOD 02/10/2025 5:49 PM T [facility] Blood Venous blood specimen / Unknown Venipuncture / Unknown 02/10/2025 1:13 PM EDT 02/10/2025 1:13 PM EDT Melissa DAVIDSON LAB BLOOD ORDERABLES Final Re sult [facility] [address] [place] [address], [place] [phone] * CBC auto differential (02/10/2025 1:13 PM EDT) [facility] WBC 9.5 4.8 - 10.8 K/[facility] LAB HEMETOLOGY METHOD 02/10/2025 5:01 PM EDT [facility] RBC 4.00 3.80 - 4.80 M/mcL LAB HEMETOLOGY METHOD 02/10/2025 5:01 PM [facility] Hemoglobin 12.3 11.5 - 16.0 g/dL LAB HEMETOLOGY METHOD 02/10/2025 5:01 PM [facility] Hematocrit 37.7 35.0 - 47.0 % LAB HEMETOLOGY METHOD 02/10/2025 5:01 PM [facility] MCV 93.3 79.0 - 98.0 FL LAB HEMETOLOGY METHOD 02/10/2025 5:01 PM [facility] MCH 30.4 27.0 - 32.0 pcg LAB HEMETOLOGY METHOD 02/10/2025 5:01 PM [facility] MCHC 32.6 32.0 - 37.0 g/dL LAB HEMETOLOGY METHOD 02/10/2025 5:01 PM [facility] RDW 13.0 11.0 - 15.0 % LAB HEMETOLOGY METHOD 02/10/2025 5:01 PM [facility] Platelets 288 130 - 400 K/mcL LAB HEMETOLOGY METHOD 02/10/2025 5:01 PM [facility] MPV 10.5 7.0 - 11.0 FL LAB HEMETOLOGY METHOD 02/10/2025 5:01 PM [facility] NRBC 0.0 <1.0 % LAB HEMETOLOGY METHOD 02/10/2025 5:01 PM [facility] NRBC Absolute 0.00 <0.10 K/mcL LAB HEMETOLOGY METHOD 02/10/2025 5:01 PM [facility] Neutrophils Relative 56.9 % LAB HEMETOLOGY METHOD 02/10/2025 5:01 PM [facility] Lymphocytes Relative 32.6 % LAB HEMETOLOGY METHOD 02/10/2025 5:01 PM [facility] Monocytes Relative 7.7 % LAB HEMETOLOGY METHOD 02/10/2025 5:01 PM [facility] Eosinophils Relative 1.2 % LAB HEMETOLOGY METHOD 02/10/2025 5:01 PM [facility] Basophils Relative 1.3 % LAB HEMETOLOGY METHOD 02/10/2025 5:01 PM [facility] Immature Granulocytes Relative 0.3 % LAB HEMETOLOGY METHOD 02/10/2025 5:01 PM [facility] Neutrophils Absolute 5.38 1.50 - 7.00 K/mcL LAB HEMETOLOGY METHOD 02/10/2025 5:01 PM [facility] Lymphocytes Absolute 3.08 1.00 - 5.00 K/mcL LAB HEMETOLOGY METHOD 02/10/2025 5:01 PM [facility] Monocytes Absolute 0.73 0.20 - 1.00 K/mcL LAB HEMETOLOGY METHOD 02/10/2025 5:01 PM [facility] Eosinophils Absolute 0.11 0.00 - 0.50 K/mcL LAB HEMETOLOGY METHOD 02/10/2025 5:01 PM [facility] Basophils Absolute 0.12 0.00 - 0.20 K/mcL LAB HEMETOLOGY METHOD 02/10/2025 5:01 PM [facility] Immature Granulocytes Absolute 0.03 0.00 - 0.03 K/mcL LAB HEMETOLOGY METHOD 02/10/2025 5:01 PM [facility] Blood Venous blood specimen / Unknown Venipuncture / Unknown 02/10/2025 1:13 PM EDT 02/10/2025 1:13 PM EDT us Melissa DAVIDSON LAB BLOOD ORDERABLES Final Re sult Performing Organization Address [facility]/ZIP Co de Phone Number [facility] [address] [place] [address], [place] [phone] * Chlamydia trachomatis and Neisseria gonorrhoeae molecular study (02/10/2025 1:13 PM EDT) [facility] Neisseria gonorrhoeae PCR Negative Negative LAB MOLECULAR DIAGNOSTICS METHOD 02/11/2025 10:42 AM EDT [facility] Chlamydia trachomatis PCR Negative Negative LAB MOLECULAR DIAGNOSTICS METHOD 02/11/2025 10:42 AM EDT [facility] Urine First stream urine specimen / Unknown Non-blood Collection / Unknown 02/10/2025 1:13 PM EDT 02/10/2025 1:13 PM EDT us Melissa DAVIDSON LAB MICROBIOLOGY - GENERAL OR DERABLES Final Result Performing Organization Address [facility] Co de Phone Number [facility] [address] [place] [address], [place] [phone] * Hemoglobin A1c (02/10/2025 1:13 PM EDT) [facility] Hemoglobin A1C 5.3 <6.5 % LAB CHEMISTRY METHOD 02/10/2025 10:15 PM EDT [facility] Mean Bld Glu Estim. 105 mg/dL LAB CHEMISTRY METHOD 02/10/2025 10:15 PM EDT [facility] Blood Venous blood specimen / Unknown Venipuncture / Unknown 02/10/2025 1:13 PM EDT 02/10/2025 1:13 PM EDT us Melissa DAVIDSON LAB BLOOD ORDERABLES Final Re sult Performing Organization Address City/[facility]/ZIP Co de Phone Number [facility] [address] [place] [address], [place] [phone] * Comprehensive metabolic panel (02/10/2025 1:13 PM EDT) Sodium 139 133 - 145 mmol/L LAB CHEMISTRY METHOD 02/10/2025 5:49 PM [facility] Potassium 4.2 3.5 - 5.5 mmol/L LAB CHEMISTRY METHOD 02/10/2025 5:49 PM [facility] Chloride 106 96 - 110 mmol/L LAB CHEMISTRY METHOD 02/10/2025 5:49 PM [facility] CO2 25 21 - 32 mmol/L LAB CHEMISTRY METHOD 02/10/2025 5:49 PM [facility] Anion Gap 8 3 - 11 LAB CHEMISTRY METHOD 02/10/2025 5:49 PM [facility] Glucose 81 70 - 100 mg/dL LAB CHEMISTRY METHOD 02/10/2025 5:49 PM [facility] BUN 10 5 - 25 mg/dL LAB CHEMISTRY METHOD 02/10/2025 5:49 PM [facility] Creatinine 0.86 0.50 - 1.10 mg/dL LAB CHEMISTRY METHOD 02/10/2025 5:49 PM [facility] eGFR 89 >=60 mL/min/1. 73m2 LAB CHEMISTRY METHOD 02/10/2025 5:49 PM [facility] Comment:Calculation based on the Chronic Kidney Disease Epidemiology Collaboration (CKD-EPI) equation refit without adjustment for race. BUN/Creatinine Ratio 11.6 LAB CHEMISTRY METHOD 02/10/2025 5:49 PM [facility] Calcium 9.7 8.5 - 10.5 mg/dL LAB CHEMISTRY METHOD 02/10/2025 5:49 PM [facility] AST (SGOT) 19 10 - 42 unit/L LAB CHEMISTRY METHOD 02/10/2025 5:49 PM [facility] ALT (SGPT) 28 10 - 60 unit/L LAB CHEMISTRY METHOD 02/10/2025 5:49 PM EDT [facility] Alkaline Phosphatase 69 42 - 121 unit/L LAB CHEMISTRY METHOD 02/10/2025 5:49 PM EDT [facility] Total Protein 8.0 6.0 - 8.0 g/dL LAB CHEMISTRY METHOD 02/10/2025 5:49 PM EDT [facility] Albumin 4.2 3.2 - 5.0 g/dL LAB CHEMISTRY METHOD 02/10/2025 5:49 PM EDT [facility] Total Bilirubin 0.5 0.0 - 1.4 mg/dL LAB CHEMISTRY METHOD 02/10/2025 5:49 PM EDT [facility] Blood Venous blood specimen / Unknown Venipuncture / Unknown 02/10/2025 1:13 PM EDT 02/10/2025 1:13 PM EDT Melissa DAVIDSON LAB BLOOD ORDERABLES Final Re sult [facility] [address] [place] [address], * Cervical Cancer Screening: HPV (09/02/2022) Pathologist [facility] Cervical Cancer Screening: HPV Negative, Abstracted Historical Provider HEALTH MAINTENANCE Final Result from Last 3 Months or Most Recently Relevant to Health Maintenance Insurance [employer] [facility] Care Teams Dust Box Worker Relationship Specialty Start Date End Date Martha Vidal MD [address] [place], [place] PCP - General Internal Medicine 05/02/22
== END 2025-04-11 09:37 | disposition home or self-care (01) ==
LOC: HO.HOSX 09:36
DX: S82.832D Other fracture of upper and lower end of left fibula, subsequent encounter for closed fracture with routine healing (principal)
CPT/HCPCS: 73610

== ENCOUNTER 2025-04-11 09:52 | Outpatient (AMB) | payer OTHER, SELFPAY ==
--- NOTE | 2025-04-11 10:01 | A.OFFVIS_ITS ---
Vital Signs 04/11/25 10:06 Height 5 ft 2 in Weight 136 lb BMI 24.9 Intake Visit Reasons: PO: Lt Ankle ORIF 01/18/25 NE Intake Note: Nathalie is a 39 year old female who presents today post operative s/p ORIF of left lateral malleolus DOS: 01/20/[address] Hermann Carmona. Patient reports she has started physical therapy and has been doing her own excerises at home with good improvement. Allergies No Known Allergies Allergy (Verified 04/11/25 10:07) HPI HPI PO: Lt Ankle ORIF 01/18/25 NE: Details: Nathalie is a 39 year old female who presents today post operative s/p ORIF of left lateral malleolus DOS: 01/20/[address] Hermann Carmona. Patient reports she has started physical therapy and has been doing her own exercises at home with good improvement. Patient reports that her pain has improved dramatically from previous evaluation, and that she feels that being out of work and working with physical therapy have helped tremendously. [facility] Medical History Marijuana use GERD (gastroesophageal reflux disease) Anxiety Depression Surgical History No pertinent past surgical history Social History Patient Tobacco Use Status: Never used Tobacco Current occupational status: employed Current occupation: [employer] Review of Systems Const All systems reviewed & are unremarkable except as noted in HPI and below Physical Exam Vital Signs: BMI result Body Mass Index 24.9 Const General: cooperative, healthy appearing, comfortable, no acute distress, well developed and alert Orientation/consciousness: patient oriented x3 HEENT Head: Yes normal to inspection, Yes normocephalic and Yes atraumatic Eyes General: appearance normal, both eyes and all related structures Neck Neck: Yes normal visual inspection and Yes no lymphadenopathy Resp Effort & Inspection: normal respiratory effort and able to speak in complete sentences Cardio Rate: regular rate Peripheral pulses: Peripheral pulses 2+ throughout GI Inspection: Yes normal to inspection Palpation (GI): Soft to palpation Skin General skin exam: no rashes or lesions noted Neuro General: patient oriented x3 Extrem Other: Left ankle is edematous along the lateral aspect of the ankle, improved from previous visit. She has improved swelling throughout the foot and ankle, improved from previous evaluation. There is a well approximated and well healed incision noted on the lateral aspect of the left ankle, no drainage at this time. Distal sensation intact. Capillary refill brisk. No redness, warmth, or other evidence of infection. Psych Appearance: grossly normal Mental Status: mental status grossly normal Results Reviewed Results Reviewed: X-rays obtained in the office today and independently reviewed by me, Polo Cisneros PA-C, demonstrate surgically reduced fracture of the distal fibula of the left ankle with all orthopedic hardware in place, in satisfactory clinical alignment, and with evidence of early interval bony healing. Assessment & Plan Assessment & Plan (1) Closed fracture of left distal fibula: Code(s): S82.832A - Other fracture of upper and lower end of left fibula, initial encounter for closed fracture Category: Medical Plan 1. Status post ORIF of left fibula DOS 01/18/2025 Patient appears to be recovering well postoperatively Patient is educated about the typical recovery course Patient is held out of work at this time, as previous attempts to return on light duty caused her a marked increase in pain, swelling Patient is educated that she should absolutely not be putting any weight on the ankle without the boot on, as this could lead to destabilization of the hardware and recurrence of fracture. No further dressings necessary To elevate as much as possible Continue PT to work on on range of motion and to work on pain relief Follow-up in 3-4 weeks with repeat x-rays, sooner with any acute concerns Orders: Orders XR ankle LT min 3V Today M25.572 - Pain in left ankle and joints of left foot Coding Level of Care Code Global (71740) Diagnoses Closed fracture of left distal fibula S82.832A
[2025-04-11 10:06] VITALS: BMI 24.9
== END 2025-04-11 10:19 | disposition home or self-care (01) ==
LOC: HO.HOS 09:53
DX: S82.832A Other fracture of upper and lower end of left fibula, initial encounter for closed fracture (principal)
CPT/HCPCS: 99024

== ENCOUNTER → 2025-04-11 09:54 | Outpatient (BNV) | payer OTHER, SELFPAY | PROVIDERS: Visit Provider Radiology Diagnostic Radiology | DX: M25.572 Pain in left ankle and joints of left foot (principal) | CPT/HCPCS: 73610 ==

== ENCOUNTER 2025-05-02 08:49 | Outpatient (REF) | payer OTHER, SELFPAY ==
--- OUTSIDE RECORDS SUMMARY | 2025-05-02 09:21 | XMS_ITS | Clinical Summary ---
Author Organization [facility] Address [address] [facility] [address] [place], [place] [id number] Phone Care Team Providers Care Office Services Specialist Name Role Phone Pcp, Unknown Primary Care Provider Unavailabl e Allergies No known active allergies Medications pantoprazole (PROTONIX) 20 MG tablet Take 1 tablet by mouth daily. 06/16/2024 Active hydrOXYzine (ATARAX) 25 MG tablet Take 25 mg by mouth nightly at bedtime as needed. 10/07/2024 Active escitalopram oxalate (LEXAPRO) 10 MG tablet take 1 tablet by mouth 1 time each day. Active cyclobenzaprine (FLEXERIL) 5 MG tablet Take 5 mg by mouth. 10/07/2024 Active Social History Tobacco Use Types Packs/Day Years Used Date Smoking Tobacco: Never Assessed Education Answer Date Recorded Are you interested in more education? Not on dianne e 11/05/2024 Are you concerned about learning? Not on file 11/05/2024 No 11/05/2024 No 11/05/2024 Digital Access Answer Date Recorded No 11/05/2024 No 11/05/2024 Reliable internet access at home? Not on file 11/05/2024 Device with a working camera? Not on file Comments Unknown Sex and Gender Information Value Date Recorded Sex Assigned at Not on file Legal Sex Female 11:54 AM EST Gender Identity Not on file Sexual Orientation Not on file Last Filed Vital Signs Vital Sign Reading Time Taken Comments Blood Pressure 147/97 11/12/2024 12:06 PM EST Pulse 94 11/12/2024 12:06 PM EST Temperature 36.3 C (97.4 F) 11/12/2024 12:06 PM EST Respiratory Rate 18 11/12/2024 12:06 PM EST Oxygen Saturation 96% 11/12/2024 12:06 PM EST Inhaled Oxygen Concentration - - Weight 74.8 kg (165 lb) 11/12/2024 12:06 PM EST Height 157.5 cm (5' 2 ) 11/12/2024 12:06 PM EST Body Mass Index 30.18 11/12/2024 12:06 PM EST Plan of Treatment Health Maintenance Due Date Last Done Comments DEPRESSION SCREENING 1999 SMOKING Hx and SMOKELESS TOBACCO SCREENING 2000 HEPATITIS C SCREENING 2005 HIV ONE-TIME SCREENING (18-6 5 YEARS) 2005 PAP SMEAR 2008 SCREENING FOR DIABETES 2022 COVID-19 VACCINE (3 - 2023-2 5 season) 2024 01/29/2021, 12/31/2020 Adult Td,Tdap Booster 11/13/2032 11/13/2022 , 02/01/2009 HEPATITIS A VACCINES Aged Out No long er eligible based on patient's age to complete this topic HIB VACCINES Aged Out No longer eligi ble based on patient's age to complete this topic MENINGOCOCCAL VACCINES (ACWY) Aged Out No longer eligible based on patient's age to complete this topic MENINGOCOCCAL VACCINES (B) Aged Out N o longer eligible based on patient's age to complete this topic PNEUMOCOCCAL VACCINES (0-49 years) Aged Out No longer eligible b ased on patient's age to complete this topic Medical Devices Not on file Insurance [facility] [place] [address] [place] [address] Care Teams Office Services Specialist Relationship Specialty Start Date End Date Pcp, Unknown PCP - General 11/05/24 Additional Source Comments The information contained in this document represents components of the legal health record. It is not the complete legal health record.[facility]
--- OUTSIDE RECORDS SUMMARY | 2025-05-02 09:21 | XMS_ITS | Clinical Summary ---
Author Organization [employer] Address [address] [place] [address] Care Team Providers Care Roll Filler Name Role Phone Unavailable Primary Care Provider [...] Tobacco Screening 1999 Family Planning (PISQ) 2002 HPV Vaccines (1 - 3-dose series) 2002 Hepatitis B Vaccines (1 of 3 [...] Procedure Name Priority Date/Time Associated Diagnosis Comments QUINTON HISTORICAL HPV MRNA E6/E7 Routine 10/16/2016 10:39 AM EST from Last 3 Months or Most Recently Relevant to Health Maintenance Results * HPV mRNA E6/E7 (10/16/2016 10:39 AM EST) HPV mRNA E6/E7 Not Detected NOT DETECTED [facility] Comment: This test was performed using the APTIMA(R) HPV Assay ([employer] This assay detects E6/E7 viral messenger RNA (mRNA) from 14 high-risk HPV types (16,18,31,33,35,39,45,51, 52,56,58,59,66,68). For additional information please refer to: http://education.new test company.[employer]/faq/BZN041i5 (This link is being provided for informational/ educational purposes only.) Test Performed by [facility], [facility], [address] [place] [address] Levi Chairez M.D., Ph.D., Director of Laboratories , [place] [id number] Please note: Effective 06/17/2016, HPV testing will be performed using [employer]'s APTIMA test which targets mRNA. Detecting mRNA instead of DNA, as in older methods, offers significant improvements in specificity. 10/16/2016 10:3 9 AM EST Historical Provider HISTORICAL/NON ORDERABLE LABS Final Result [facility] [address] [place] [address], from Last 3 Months or Most Recently Relevant to Health Maintenance
--- OUTSIDE RECORDS SUMMARY | 2025-05-02 09:21 | XMS_ITS ---
Author Name [facility] Organization Unknown Care Team Organization Name Specialty Phone Email Start Date End [facility] ALEKSANDRA MARIE Primary Care [email or web address] 04/10/2023 4
--- OUTSIDE RECORDS SUMMARY | 2025-05-02 09:21 | XMS_ITS | Clinical Summary ---
Author Organization [facility] [address] [facility] Address [address] [facility] [place] [id number] Phone Care Team Providers Care Tie Bucker Name Role Phone Martha Vidal MD Primary Care Pr ovider Allergies No known active allergies Medications hydrOXYzine HCL (ATARAX) 25 mg tablet Take 1 tablet (25 mg total) by mouth 2 (two) times a day if needed for anxiety. for anxiety 60 tablet 2 02/10/2025 Active cyclobenzaprine (FLEXERIL) 10 mg tablet Take 1 tablet (10 mg total) by mouth at bedtime as needed for muscle spasms. 30 tablet 2 03/25/2025 Active escitalopram (LEXAPRO) 10 mg tablet Take 2 tablets (20 mg total) by mouth 1 (one) time each day. 180 tablet 1 03/25/2025 Active Active Problems Problem Noted Date Diagnosed Date [...] Description 03/25/2025 9:00 AM EDT Office Visit [address] [phone] Melissa Bains PA Anxiety and depression (Primary Dx); Vitamin B12 deficiency disease; Primary hypertension 02/10/2025 12:30 PM EDT Office Visit [address] [phone] Melissa Bains PA Annual physical exam (Primary [...] 8:30 AM EST Office Visit Adult Medicine [address] [phone] Martha Vidal MD [address] [place] [id number] Health Maintenance Due Date Last Done Comments Hepatitis B Vaccines (1 of 3 - 19+ 3-dose series) 2006 COVID-19 Vaccine (2023-2 5 season) 2024 01/29/2021, 12/31/2020 Depression Screening 10/06/2024 Influenza Vaccine (#1) 2025 06/16/2024 Hypertension/CHF/CAD Annual BMP Blood Test 02/10/2026 02/10/2025, [...] 5 Years) and At-Risk Patients (6 to 49 Years) Aged Out No longer eligible b [...] LAB CHEMISTRY METHOD 02/10/2025 7:29 PM EDT [facility] Blood Venous blood specimen / Unknown Venipuncture / Unknown 02/10/2025 1:13 PM EDT 02/10/2025 1:13 PM EDT us Melissa DAVIDSON LAB BLOOD ORDERABLES Final Re sult [facility] [address] [place] [address], * HIV 1,2 antibody, p24 antigen with reflex to differentiation (02/10/2025 1:13 PM EDT) HIV Combo AB/AG Negative Negative LAB CHEMISTRY METHOD 02/10/2025 7:30 PM EDT [facility] Blood Venous blood specimen / Unknown Venipuncture / Unknown 02/10/2025 1:13 PM EDT 02/10/2025 1:13 PM EDT Narrative [facility] - 02/10/2025 7:30 PM EDT [...] ORDERABLES Final Re sult Performing Organization Address [facility]/ZIP Co de Phone Number [facility] [address] [place] [address], [place] [phone] * Treponema pallidum antibody with reflex to RPR and particle agglutination (02/10/2025 1:13 PM EDT) Pathologist [facility] T. Pallidum Antibodies Negative Negative LAB CHEMISTRY METHOD 02/10/2025 7:01 PM EDT [facility] Blood Venous blood specimen / Unknown Venipuncture / Unknown 02/10/2025 1:13 PM EDT 02/10/2025 1:13 PM EDT us Melissa DAVIDSON LAB BLOOD ORDERABLES Final Re sult Performing Organization Address [facility] de Phone Number [facility] [address] [place] [address], [place] [phone] * (ABNORMAL) Lipid panel with reflex to direct LDL (02/10/2025 1:13 PM EDT) Cholesterol 249(H) 0 - 200 mg/dL LAB CHEMISTRY METHOD 02/10/2025 5:49 PM EDT [facility] Triglycerides 336(H) 0 - 150 mg/dL LAB CHEMISTRY METHOD 02/10/2025 5:49 PM EDT [facility] HDL 44 >=40 mg/dL LAB CHEMISTRY METHOD 02/10/2025 5:49 PM EDT [facility] LDL Calculated 138(H) 0 - 100 mg/dL LAB CHEMISTRY METHOD 02/10/2025 5:49 PM EDT [facility] VLDL Cholesterol Nas 67.2 mg/dL LAB CHEMISTRY METHOD 02/10/2025 5:49 PM EDT [facility] Non HDL Chol. (LDL+VLDL) 205(H) <145 mg/dL LAB CHEMISTRY METHOD 02/10/2025 5:49 PM EDT [facility] Chol/HDL Ratio 5.7(H) 0.0 - 4.4 LAB CHEMISTRY METHOD 02/10/2025 5:49 PM EDT [facility] Blood Venous blood specimen / Unknown Venipuncture / Unknown 02/10/2025 1:13 PM EDT 02/10/2025 1:13 PM EDT us Melissa DAVIDSON LAB BLOOD ORDERABLES Final Re sult [facility] [address] [place] [address], [place] [phone] * CBC auto differential (02/10/2025 1:13 PM EDT) WBC 9.5 4.8 - 10.8 K/mcL LAB HEMETOLOGY METHOD 02/10/2025 5:01 PM EDT [facility] RBC 4.00 3.80 - 4.80 M/mcL LAB HEMETOLOGY METHOD 02/10/2025 5:01 PM EDT [facility] Hemoglobin 12.3 11.5 - 16.0 g/dL LAB HEMETOLOGY METHOD 02/10/2025 5:01 PM EDT [facility] Hematocrit 37.7 35.0 - 47.0 % LAB HEMETOLOGY METHOD 02/10/2025 5:01 PM EDT [facility] MCV 93.3 79.0 - 98.0 FL LAB HEMETOLOGY METHOD 02/10/2025 5:01 PM EDT [facility] MCH 30.4 27.0 - 32.0 [...] K/mcL LAB HEMETOLOGY METHOD 02/10/2025 5:01 PM EDT [facility] Lymphocytes Absolute 3.08 1.00 - 5.00 K/mcL LAB HEMETOLOGY METHOD 02/10/2025 5:01 PM EDT [facility] Monocytes Absolute 0.73 0.20 - 1.00 K/mcL LAB HEMETOLOGY METHOD 02/10/2025 5:01 PM EDT [facility] Eosinophils Absolute 0.11 0.00 - 0.50 K/mcL LAB HEMETOLOGY METHOD 02/10/2025 5:01 PM EDT [facility] Basophils Absolute 0.12 0.00 - 0.20 K/mcL LAB HEMETOLOGY METHOD 02/10/2025 5:01 PM EDT [facility] Immature Granulocytes Absolute 0.03 0.00 - 0.03 K/mcL LAB HEMETOLOGY METHOD 02/10/2025 5:01 PM EDT [facility] Blood Venous blood specimen / Unknown Venipuncture / Unknown 02/10/2025 1:13 PM EDT 02/10/2025 1:13 PM EDT Melissa DAVIDSON LAB BLOOD ORDERABLES Final Re sult [facility] [address] [place] [address], * Chlamydia trachomatis and Neisseria gonorrhoeae molecular study (02/10/2025 1:13 PM EDT) Neisseria gonorrhoeae PCR Negative Negative LAB MOLECULAR DIAGNOSTICS METHOD 02/11/2025 10:42 AM EDT [facility] Chlamydia trachomatis PCR Negative Negative LAB MOLECULAR DIAGNOSTICS METHOD 02/11/2025 10:42 AM EDT [facility] Urine First stream urine specimen / Unknown Non-blood Collection / Unknown 02/10/2025 1:13 PM EDT 02/10/2025 1:13 PM EDT us Melissa DAVIDSON LAB MICROBIOLOGY - GENERAL OR DERABLES Final Result Performing Organization Address [facility]/ZIP Co de Phone Number [facility] [address] [place] [address], [place] [phone] * Hemoglobin A1c (02/10/2025 1:13 PM EDT) Hemoglobin A1C 5.3 <6.5 % LAB CHEMISTRY METHOD 02/10/2025 10:15 PM EDT [facility] Mean Bld Glu Estim. 105 mg/dL LAB CHEMISTRY METHOD 02/10/2025 10:15 PM EDT [facility] Blood Venous blood specimen / Unknown Venipuncture / Unknown 02/10/2025 1:13 PM EDT 02/10/2025 1:13 PM EDT us Melissa DAVIDSON LAB BLOOD ORDERABLES Final Re sult Performing Organization Address [facility]/ZIP Co de Phone Number [facility] [address] [place] [address], [place] [phone] * Comprehensive metabolic panel (02/10/2025 1:13 PM EDT) Sodium 139 133 - 145 mmol/L LAB CHEMISTRY METHOD 02/10/2025 5:49 PM EDT [facility] Potassium 4.2 3.5 - 5.5 mmol/L LAB CHEMISTRY METHOD 02/10/2025 5:49 PM EDT [facility] Chloride 106 96 - 110 mmol/L LAB CHEMISTRY METHOD 02/10/2025 5:49 PM EDT [facility] CO2 25 21 - 32 mmol/L LAB CHEMISTRY METHOD 02/10/2025 5:49 PM EDT [facility] Anion Gap 8 3 - [...] 02/10/2025 5:49 PM [facility] Alkaline Phosphatase 69 42 - 121 unit/L LAB CHEMISTRY METHOD 02/10/2025 5:49 PM [facility] Total Protein 8.0 6.0 - 8.0 g/dL LAB CHEMISTRY METHOD 02/10/2025 5:49 PM [facility] Albumin 4.2 3.2 - 5.0 g/dL LAB CHEMISTRY METHOD 02/10/2025 5:49 PM [facility] Total Bilirubin 0.5 0.0 - 1.4 mg/dL LAB CHEMISTRY METHOD 02/10/2025 5:49 PM [facility] Blood Venous blood specimen / Unknown Venipuncture / Unknown 02/10/2025 1:13 PM EDT 02/10/2025 1:13 PM EDT Melissa DAVIDSON LAB BLOOD ORDERABLES Final Re sult [facility] [address] [place] [address], [place] [phone] * Cervical Cancer Screening: HPV (09/02/2022) Cervical Cancer Screening: HPV Negative, Abstracted Historical Provider HEALTH MAINTENANCE Final Result from Last 3 Months or Most Recently Relevant to Health Maintenance Insurance [facility] Care Teams Tie Bucker Relationship Specialty Start Date End Date Martha Vidal MD [address], [place] PCP - General Internal Medicine 05/02/22
== END 2025-05-02 08:50 | disposition home or self-care (01) ==
LOC: HO.HOSX 08:49
DX: Z13.89 Encounter for screening for other disorder (principal)

== ENCOUNTER 2025-05-03 10:43 | Outpatient (REF) | payer OTHER, SELFPAY ==
--- NOTE | ~2025-05-03 | XR_ITS ---
EXAMINATION: XR ANKLE, left CLINICAL INFORMATION: M25.572 - Pain in left ankle and joints of left foot , follow-up post-ORIF COMPARISON: January 11, 2025 and April 11, 2025 TECHNIQUE: AP, lateral, and mortise views lower extremity joint, ankle. FINDINGS: Lateral plate and screws traverse a healed fracture involving the lateral malleolus at the level of the syndesmosis. Ankle mortise is congruent. There is no widening of the syndesmosis. Talar dome is intact. There is a very small plantar calcaneal enthesiophytes. XR/XR ankle LT min 3V IMPRESSION: Healed or nearly healed fracture of the left wrist. Electronically signed by: Pablito Henriquez MD 05/03/2025 11:47 AM EDT
== END 2025-05-03 10:44 | disposition home or self-care (01) ==
LOC: HO.HOSX 10:43
DX: S82.62XD Displaced fracture of lateral malleolus of left fibula, subsequent encounter for closed fracture with routine healing (principal); M25.572 Pain in left ankle and joints of left foot; X58.XXXD Exposure to other specified factors, subsequent encounter
CPT/HCPCS: 73610

== ENCOUNTER 2025-05-03 11:26 | Outpatient (AMB) | payer OTHER, SELFPAY ==
--- NOTE | 2025-05-03 11:27 | MHC.OFFVIS ---
Intake Visit Reasons: OV - Lt Ankle ORIF 01/18/25 NE Intake Note: Nathalie is a 39 year old female who presents today post operative s/p ORIF of left lateral malleolus DOS: 01/20/[address] Hermann Carmona. She's been in physical therapy for 3 weeks since her last visit she reports. Patient states her job would like her to retrurn back to work. She is here today for a Fitness for Duty Certification to be complete. She expresses PT has been going well and standing on the left foot feels okay with bear weight. She reports it is uncomfortable to stand on her foot with the boot on. She would like to discuss work status today. Allergies No Known Allergies Allergy (Verified 05/03/25 11:30) HPI HPI OV - Lt Ankle ORIF 01/18/25 NE: Details: Nathalie is a 39 year old female who presents today post operative s/p ORIF of left lateral malleolus DOS: 01/20/[address] Hermann Carmona. She's been in physical therapy for 3 weeks since her last visit she reports. Patient states her job would like her to retrurn back to work. She is here today for a Fitness for Duty Certification to be complete. She expresses PT has been going well and standing on the left foot feels okay with bear weight. She reports it is uncomfortable to stand on her foot with the boot on. She would like to discuss work status today. 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 Review of Systems Const All systems reviewed & are unremarkable except as noted in HPI and below Physical Exam Const General: cooperative, healthy appearing, comfortable, no acute distress, well developed and alert Orientation/consciousness: patient oriented x3 HEENT Head: Yes normal to inspection, Yes normocephalic and Yes atraumatic Eyes General: appearance normal, both eyes and all related structures Neck Neck: Yes normal visual inspection and Yes no lymphadenopathy Resp Effort & Inspection: normal respiratory effort and able to speak in complete sentences Cardio Rate: regular rate Peripheral pulses: Peripheral pulses 2+ throughout GI Inspection: Yes normal to inspection Palpation (GI): Soft to palpation Skin General skin exam: no rashes or lesions noted Neuro General: patient oriented x3 Extrem Other: Left ankle is very slightly edematous along the lateral aspect of the ankle, improved from previous visit. She has improved swelling throughout the foot and ankle, improved from previous evaluation. There is a well approximated and well healed incision noted on the medial and lateral aspect of the left ankle, no drainage at this time. Distal sensation intact. Capillary refill brisk. No redness, warmth, or other evidence of infection. Psych Appearance: grossly normal Mental Status: mental status grossly normal Results Reviewed Results Reviewed: X-rays obtained in the office today and independently reviewed by me, Polo Cisneros PA-C, demonstrate surgically reduced fracture of the distal fibula of the left ankle with all orthopedic hardware in place, in satisfactory clinical alignment, and with evidence of interval bony healing. Assessment & Plan Assessment & Plan (1) Closed fracture of left distal fibula: Code(s): S82.832A - Other fracture of upper and lower end of left fibula, initial encounter for closed fracture Category: Medical Plan 1. Status post ORIF of left fibula DOS 01/18/2025 Patient appears to be recovering well postoperatively Patient is educated about the typical recovery course Patient is provided with a lace-up ankle brace to be worn with daytime activities and for comfort Patient is advised that with some activity, if she is comfortable, she does not need to wear any bracing, and supportive footwear should be enough to support her ankle No further dressings necessary Patient can return to work full duty at this time To elevate as much as possible Continue PT to work on on range of motion and to work on pain relief Follow-up in 6 weeks with repeat x-rays, sooner with any acute concerns Orders: Orders XR ankle LT min 3V Today M25.572 - Pain in left ankle and joints of left foot Coding Level of Care Code Global (91540) Diagnoses Closed fracture of left distal fibula S82.832A
== END 2025-05-03 12:09 | disposition home or self-care (01) ==
LOC: HO.HOS 11:26
DX: S82.832A Other fracture of upper and lower end of left fibula, initial encounter for closed fracture (principal)
CPT/HCPCS: 99213

== ENCOUNTER → 2025-05-03 11:35 | Outpatient (BNV) | payer OTHER, SELFPAY | PROVIDERS: Visit Provider Radiology Diagnostic Radiology | DX: M25.572 Pain in left ankle and joints of left foot (principal) | CPT/HCPCS: 73610 ==

== ENCOUNTER 2025-05-13 08:00 | Outpatient (RCR) | payer OTHER, SELFPAY ==
--- NOTE | 2025-04-05 12:38 | MHC.PT.EP ---
[facility] [place] Office [place] Office [place] Office [address] Kvng [place] [address] [phone] F: [phone] F: [phone] F: [phone] F: [phone] Physical Therapy Plan of Care Date of Evaluation: 04/05/25 Date of Surgery: 01/18/25 Diagnosis: This is a 39 yo female presenting to skilled PT with a script for s/p L ankle ORIF 01/18/25 closed fracture of distal fib. Assessment: This is a 39 yo female presenting to skilled PT with a script for s/p L ankle ORIF 01/18/25 closed fracture of distal fib. January 11 she caught her foot in a loose rug and had to undergo an ORIF left lateral malleolus on January 18. She was in a cast for 4 weeks WBAT after the surgery. She is now in a boot and has been for the last 5 weeks WBAT. She still gets shooting pains at rest and with movement, located at Achilles and plantar fascia. Incision is tender and warm as well as notes continuation of swelling. She also reports some numbness at the distal aspect of her foot. Assessment reveals pain that ranges from up to a 7-9/10 at the worst. Patient demos decreased L ankle AROM, strength of B LE's, TTP at incision, PF and distal fib and impaired posture with forward head and rounded shoulders, impaired gait and balance all expected s/p ORIF. Based on functional limitations, impaired QOL and pain tolerance patient is a good candidate for skilled PT 2x/wk for 5wks. Frequency and Duration: The patient will be seen 2x/wk for 5wks Short Term Goals: (in 2 weeks) Patient will improve ankle AROM by at least 5 degs without assist in all directions Patient will demo good understanding and performance of quad set in multiple different planes without cues from PT Patient will be I in HEP Understand healing times, WBing precautions and pain relief Jail Goals: (in 5 weeks) Patient will report 75% improvement in balance and strength of LLE as evidenced by reports no of falls or buckling in LE Patient will improve LEFs by at least 10 points Patient will demo WFL AROM ankle Patient will demo proper squat and lift techniques without increase in pain Patient to return to work when medically cleared, perform stairs with normal gait and return to normal daily hobbies Treatment Plan: Modalities to reduce pain, spasms and effusion. Manual therapy to restore motion and function. Therapeutic exercise to improve strength and flexibility. Neuromuscular re-education for posture and balance. Therapeutic activities to return to functional activities of daily living. Electronically signed by: Maya Fang PT Please sign and return to therapist. Thank you for your referral.
--- NOTE | 2025-05-30 11:14 | MHC.PT.DC ---
[facility] [place] Office [place] Office [place] Office [address] [place] [address] [phone] F: [phone] F: [phone] F: [phone] F: [phone] Physical Therapy Discharge Report Diagnosis: This is a 39 yo female presenting to skilled PT with a script for s/p L ankle ORIF 01/18/25 closed fracture of distal fib. Date of Surgery: 01/18/25 Date of Evaluation: 04/05/25 Date of Discharge: 05/30/25 Treatments to Date: 9 Cancellations to Date: 0 No Shows to Date: 0 Discharge Status: Achieved Goals Improved Function Independent with HEP Patient Elected to Stop Discharge Summary: Patient came to 9 sessions of PT. Patient with good gait, pain management and HEP. She was educated to wear compression sock for swelling and brace at work for stability. Patient requested to cancel remaining visits and felt ready for DC. DC to HEP. Electronically signed by: Maya Fang, PT Please sign and return to therapist. Thank you for your referral.
== END 2025-05-30 11:15 | disposition home or self-care (01) ==
LOC: HO.PTCHIC 08:00
PROVIDERS: PCP Family Medicine
DX: S82.832D Other fracture of upper and lower end of left fibula, subsequent encounter for closed fracture with routine healing (principal)
CPT/HCPCS: 97014; 97110; 97112; 97140; 97161; 97530